=== PATIENT | female | born 1935 | race Caucasian/White ===

== ENCOUNTER 2016-09-08 02:36 | Emergency (ER) | payer MEDICARE, BC ==
[2016-09-08] MEDS ORDERED: LORazepam 1 MG TAB PO STA (03:56)
[2016-09-08 03:58] LABS: Basophils % (A) 1 %; CH 29.2; CHCM 31.7; Eosinophils # (A) 0.1 k/uL (0-0.7); Eosinophils % (A) 2 %; HCT 35.8 % (34.0-46.0); HDW 2.51; HGB 11.3 gm/dL (11.4-16.0); Luc # (Auto) 0.15; Luc % (Auto) 3; Lymphocytes # (A) 0.8 k/uL (1.0-4.8); Lymphocytes % (A) 13 %; MCH 29.1 pg (25.0-35.0); MCHC 31.5 g/dL (31.0-37.0); MCV 92.5 fL (80.0-100.0); Mean Platelet Volume 7.2; Monocytes # (A) 0.4 k/uL (0-1.0); Monocytes % (A) 7 %; Neutrophils # (A) 4.6 k/uL (1.3-7.7); Neutrophils % (A) 75 %; RBC 3.87 m/uL (3.80-5.40); RDW 14.5 % (11.5-15.5); WBC 6.2 k/uL (3.8-10.6); WBC (Perox) 6.43
[2016-09-08 04:08] LABS: Anion Gap 7 mmol/L; Blood Urea Nitrogen 22 mg/dL (7-17); Calcium 8.9 mg/dL (8.4-10.2); Carbon Dioxide 25 mmol/L (22-30); Chloride 106 mmol/L (98-107); Glucose 117 mg/dL (74-99); Non-African American GFR(MDRD) >60 (>60 ml/min/1.73 sqM); Potassium 4.6 mmol/L (3.5-5.1); Sodium 138 mmol/L (137-145)
--- NOTE | 2016-09-08 04:08 | XR ---
EXAM: XR Chest, 2 Views. CLINICAL HISTORY: Reason: Rule out pneumonia TECHNIQUE: Frontal and lateral views of the chest. COMPARISON: 04/26/16 plain films. FINDINGS: Lungs: Linear atelectasis or scarring is again present in the left lower lung field alongside the large hiatal hernia. Pleural spaces: Unremarkable. No pneumothorax. Heart: Stable mild cardiomegaly. Mediastinum: There is again a large hiatal hernia. Bones: The bones are osteopenic with multilevel degenerative changes. No acute displaced fracture is seen. IMPRESSION: No new acute intrathoracic abnormality seen.
--- NOTE | 2016-09-08 04:15 | ED ---
URI HPI - General Chief Complaint: Upper Respiratory Infection Stated Complaint: Cough/Congestion/Fever Time Seen by Provider: 09/08/16 02:54 Source: patient Mode of arrival: wheelchair Limitations: no limitations - History of Present Illness Initial Comments: Complaining about shortness of breath, cough is dry cough now bringing up any phlegm she denies any chest pain there is no pleuritic chest pain no abdominal pain. She denies any headache no neck pain no fever no chills no frequency urgency dysuria no abdominal pain no sinus symptoms of TIA or CVA - Related Data Home Medications Medication Instructions Recorded Confirmed ALPRAZolam [ALPRAZolam] 0.25 mg PO Q8HR PRN 01/14/14 09/08/16 Ascorbic Acid [Vitamin C] 500 mg PO DAILY 01/14/14 09/08/16 FLUoxetine HCL [Fluoxetine HCl] 20 mg PO HS 01/14/14 09/08/16 Levothyroxine Sodium [Synthroid] 100 mcg PO DAILY 01/14/14 09/08/16 amLODIPine BESYLATE/BENAZEPRIL 1 cap PO BID 01/14/14 09/08/16 [Amlodipine-Benazepril 5-20 mg] Aspirin 162 mg PO HS 10/06/14 09/08/16 Atorvastatin [Lipitor] 20 mg PO DAILY 03/30/16 09/08/16 Calcium Carbonate [Calcium] 600 mg PO DAILY 03/30/16 09/08/16 Previous Rx's Medication Instructions Recorded Oseltamivir [Tamiflu] 75 mg PO Q12HR #10 cap 09/08/16 Allergies Allergy/AdvReac Type Severity Reaction Status Date / Time No Known Allergies Allergy Verified 09/08/16 02:52 Review of Systems ROS Statement: Those systems with pertinent positive or pertinent negative responses have been documented in the HPI. ROS Other: All systems not noted in ROS Statement are negative. Past Medical History Past Medical History: Hyperlipidemia, Hypertension, Thyroid Disorder History of Any Multi-Drug Resistant Organisms: None Reported Past Surgical History: Cholecystectomy, Hernia Repair, Tubal Ligation Additional Past Surgical History / Comment(s): THYROIDECTOMY Past Psychological History: Anxiety Smoking Status: Never smoker Past Alcohol Use History: None Reported Past Drug Use History: None Reported General Exam - General Exam Comments Initial Comments: General: The patient is awake and alert, in no distress, and does not appear acutely ill. Skin: Skin is warm and dry and no rashes or lesions are noted. Eye: Pupils are equal, round and reactive to light, extra-ocular movements are intact; there is normal conjunctiva bilaterally. Ears, nose, mouth and throat: There are moist mucous membranes and no oral lesions. Neck: The neck is supple, there is no tenderness or JVD. Cardiovascular: There is a regular rate and rhythm. No murmur, rub or gallop is appreciated. Respiratory: To auscultation bilateral, mild wheezing noticed both sides Gastrointestinal: Soft, non-distended, non-tender abdomen without masses or organomegaly noted. There is no rebound or guarding present. Bowel sounds are unremarkable. Back: There is no tenderness to palpation in the midline. There is no obvious deformity. Musculoskeletal: Normal ROM, no tenderness, There is no pedal edema. There is no calf tenderness or swelling. No cords were appreciated. Neurological: CN II-XII intact, Cranial nerves III through XII are intact. There are no obvious motor or sensory deficits. Coordination appears grossly intact. Speech is normal. Psychiatric: Cooperative, appropriate mood & affect, normal judgment. Limitations: no limitations Course Vital Signs 09/08/16 09/08/16 09/08/16 02:49 03:56 05:09 Temperature 99.4 F Pulse Rate 98 84 78 Respiratory 18 16 16 Rate Blood Pressure 149/63 196/85 163/82 O2 Sat by Pulse 94 L 95 96 Oximetry 09/08/16 09/08/16 05:35 05:44 Temperature Pulse Rate 80 83 Respiratory Rate Blood Pressure O2 Sat by Pulse Oximetry KG is normal sinus rhythm, ventricular rate is 80 OH interval is 150 QRS duration is 66 QT/QTc is 358/412 review of this EKG shows some flattening of the T-wave in lead [address] elevation or ST depression noticed in the other leads - Reevaluation(s) Reevaluation #1: 09/08/16 05:49 She was reassessed at 540 this morning she feels better I reviewed her labs and discussed with the patient and her chest x-ray is normal CBC is normal troponin is normal compressive metabolic panel was normal she is positive or flulike she was giving now Tamiflu him a first dose here since she be gone home and the course of Tamiflu, dysuria blood pressure was elevated which she responded well to hydralazine she'll follow-up with her family doctor she feels better and wants to go home Medical Decision Making - Lab Data Result diagrams: 09/08/16 03:40 09/08/16 03:40 Lab Results 09/08/16 09/08/16 09/08/16 Range/Units 03:40 03:40 03:40 WBC 6.2 (3.8-10.6) k/uL RBC 3.87 (3.80-5.40) m/uL Hgb 11.3 L (11.4-16.0) gm/dL Hct 35.8 (34.0-46.0) % MCV 92.5 (80.0-100.0) fL MCH 29.1 (25.0-35.0) pg MCHC 31.5 (31.0-37.0) g/dL RDW 14.5 (11.5-15.5) % Plt Count 191 (150-450) k/uL Neutrophils % 75 % Lymphocytes % 13 % Monocytes % 7 % Eosinophils % 2 % Basophils % 1 % Neutrophils # 4.6 (1.3-7.7) k/uL Lymphocytes # 0.8 L (1.0-4.8) k/uL Monocytes # 0.4 (0-1.0) k/uL Eosinophils # 0.1 (0-0.7) k/uL Basophils # 0.0 (0-0.2) k/uL Sodium 138 (137-145) mmol/L Potassium 4.6 (3.5-5.1) mmol/L Chloride 106 (98-107) mmol/L Carbon Dioxide 25 (22-30) mmol/L Anion Gap 7 mmol/L BUN 22 H (7-17) mg/dL Creatinine 0.80 (0.52-1.04) mg/dL Est GFR (MDRD) Af Amer >60 (>60 ml/min/1.73 sqM) Est GFR (MDRD) Non-Af >60 (>60 ml/min/1.73 sqM) Glucose 117 H (74-99) mg/dL Calcium 8.9 (8.4-10.2) mg/dL Troponin I (0.000-0.034) ng/mL Influenza Type A RNA Not Detected (Not Detectd) Influenza Type B (PCR) Detected H (Not Detectd) 02/28/17 Range/Units 03:40 WBC (3.8-10.6) k/uL RBC (3.80-5.40) m/uL Hgb (11.4-16.0) gm/dL Hct (34.0-46.0) % MCV (80.0-100.0) fL MCH (25.0-35.0) pg MCHC (31.0-37.0) g/dL RDW (11.5-15.5) % Plt Count (150-450) k/uL Neutrophils % % Lymphocytes % % Monocytes % % Eosinophils % % Basophils % % Neutrophils # (1.3-7.7) k/uL Lymphocytes # (1.0-4.8) k/uL Monocytes # (0-1.0) k/uL Eosinophils # (0-0.7) k/uL Basophils # (0-0.2) k/uL Sodium (137-145) mmol/L Potassium (3.5-5.1) mmol/L Chloride (98-107) mmol/L Carbon Dioxide (22-30) mmol/L Anion Gap mmol/L BUN (7-17) mg/dL Creatinine (0.52-1.04) mg/dL Est GFR (MDRD) Af Amer (>60 ml/min/1.73 sqM) Est GFR (MDRD) Non-Af (>60 ml/min/1.73 sqM) Glucose (74-99) mg/dL Calcium (8.4-10.2) mg/dL Troponin I <0.012 (0.000-0.034) ng/mL Influenza Type A RNA (Not Detectd) Influenza Type B (PCR) (Not Detectd) Disposition Clinical Impression: Hypertension, Influenza A, Shortness of breath Disposition: HOME SELF-CARE Instructions: Upper Respiratory Infection (ED) Prescriptions: Oseltamivir [Tamiflu] 75 mg PO Q12HR #10 cap
[2016-09-08] MEDS ORDERED: hydrALAZINE HCL 20 MG/ML 1 ML VIAL IVP STA (04:16)
[2016-09-08] MEDS ORDERED: OSELTAMIVIR 75 MG CAP PO STA (04:29)
[2016-09-08] MEDS ORDERED: IPRATROPIUM-ALBUTEROL 3 ML NEB INHALATION STA (05:25)
[2016-09-08 06:08] VITALS: BP 158/88; PULSE 78; RESP 18; TEMP 98.9
== END 2016-09-08 06:07 | disposition home or self-care (01) ==
LOC: EC 02:36
DX: J10.1 Influenza due to other identified influenza virus with other respiratory manifestations (principal); I10 Essential (primary) hypertension; E07.9 Disorder of thyroid, unspecified; E78.5 Hyperlipidemia, unspecified; F41.9 Anxiety disorder, unspecified; Z79.52 Long term (current) use of systemic steroids; Z79.82 Long term (current) use of aspirin; Z79.899 Other long term (current) drug therapy; Z90.49 Acquired absence of other specified parts of digestive tract
CPT/HCPCS: 99284; 96374; 36415; 94640; 93005; 80048; 84484; 85025; 87502; 71020; J0360

== ENCOUNTER 2016-09-13 09:45 | Inpatient (IN) | payer MEDICARE, BC ==
[2016-09-13] MEDS ORDERED: SODIUM CHLORIDE 0.9% 1,000 ML IV STA ×2 (10:14)
[2016-09-13] MEDS ORDERED: ACETAMINOPHEN IV (For NPO) 1,000 MG in EMPTY BAG 1 BAG IVPB STA (10:14)
[2016-09-13] MEDS ORDERED: KETOROLAC 30 MG/ML 1 ML VIAL IVP STA (10:14)
[2016-09-13] MEDS ORDERED: IPRATROPIUM 0.5 MG/2.5 ML NEBU INHALATION STA (10:14)
[2016-09-13] MEDS ORDERED: ALBUTEROL NEBULIZED 2.5 MG/3 ML INHALATION STA (10:14)
--- NOTE | 2016-09-13 10:14 | ED ---
General Adult HPI - General Chief complaint: Shortness of Breath Stated complaint: JARAD Time Seen by Provider: 09/13/16 09:48 Source: EMS, RN notes reviewed, old records reviewed Mode of arrival: EMS Limitations: no limitations - History of Present Illness Initial comments: This is an 78-year-old female ER for evaluation. The patient did come in the ER for evaluation of shortness of breath weakness fever and mild chest pain. Patient does suffer from high blood pressure, cluster, denies chest pain, does admit to recent fever. She does have recent hospital admission about 4 months ago. No travel history no sick contacts. Patient has no modifying factors for symptoms at home. - Related Data Home Medications Medication Instructions Recorded Confirmed ALPRAZolam [ALPRAZolam] 0.25 mg PO Q8HR PRN 01/14/14 09/08/16 Ascorbic Acid [Vitamin C] 500 mg PO DAILY 01/14/14 09/08/16 FLUoxetine HCL [Fluoxetine HCl] 20 mg PO HS 01/14/14 09/08/16 Levothyroxine Sodium [Synthroid] 100 mcg PO DAILY 01/14/14 09/08/16 amLODIPine BESYLATE/BENAZEPRIL 1 cap PO BID 01/14/14 09/08/16 [Amlodipine-Benazepril 5-20 mg] Aspirin 162 mg PO HS 10/06/14 09/08/16 Atorvastatin [Lipitor] 20 mg PO DAILY 03/30/16 09/08/16 Calcium Carbonate [Calcium] 600 mg PO DAILY 03/30/16 09/08/16 Previous Rx's Medication Instructions Recorded Oseltamivir [Tamiflu] 75 mg PO Q12HR #10 cap 09/08/16 Allergies Allergy/AdvReac Type Severity Reaction Status Date / Time No Known Allergies Allergy Verified 09/08/16 02:52 Review of Systems ROS Statement: Those systems with pertinent positive or pertinent negative responses have been documented in the HPI. ROS Other: All systems not noted in ROS Statement are negative. Past Medical History Past Medical History: Hyperlipidemia, Hypertension, Thyroid Disorder History of Any Multi-Drug Resistant Organisms: None Reported Past Surgical History: Cholecystectomy, Hernia Repair, Tubal Ligation Additional Past Surgical History / Comment(s): THYROIDECTOMY Past Psychological History: Anxiety Smoking Status: Never smoker Past Alcohol Use History: None Reported Past Drug Use History: None Reported General Exam Limitations: no limitations General appearance: alert, in no apparent distress Head exam: Present: atraumatic, normocephalic, normal inspection Eye exam: Present: normal appearance, PERRL, EOMI. Absent: scleral icterus, conjunctival injection, periorbital swelling ENT exam: Present: normal exam, mucous membranes moist Neck exam: Present: normal inspection. Absent: tenderness, meningismus, lymphadenopathy Respiratory exam: Present: normal lung sounds bilaterally. Absent: respiratory distress, wheezes, rales, rhonchi, stridor Cardiovascular Exam: Present: regular rate, normal rhythm, normal heart sounds. Absent: systolic murmur, diastolic murmur, rubs, gallop, clicks GI/Abdominal exam: Present: soft, normal bowel sounds. Absent: distended, tenderness, guarding, rebound, rigid Extremities exam: Present: normal inspection, full ROM, normal capillary refill. Absent: tenderness, pedal edema, joint swelling, calf tenderness Back exam: Present: normal inspection Neurological exam: Present: alert, oriented X3, CN II-XII intact Psychiatric exam: Present: normal affect, normal mood Skin exam: Present: warm, dry, intact, normal color. Absent: rash Course Vital Signs 09/13/16 09/13/16 09/13/16 09:51 10:14 10:36 Temperature 100.7 F H Pulse Rate 81 96 Respiratory 16 16 Rate Blood Pressure 171/106 09/13/16 10:43 Temperature Pulse Rate 100 Respiratory Rate Blood Pressure - Reevaluation(s) Reevaluation #1: 09/13/16 10:59 Medical record including prior ER visit a few days ago was reviewed and patient is positive for flu Reevaluation #2: 09/13/16 11:00 Patient still wheezy wheezing even after second breathing treatment, EKG Findings - EKG Comments: EKG Findings:: EKG shows normal sinus rhythm rate of 81, DC 140, QRS 66, QTC 439 Medical Decision Making - Medical Decision Making 82. The ER with informed influenza, fever, COPD exacerbation with hypoxia, patient has mild improvement with breathing treatment but still having shortness of breath and cough. Patient's fevers improved and is feeling better but still having shortness of breath. Patient denies chest pain. - Lab Data Result diagrams: 09/13/16 10:11 09/13/16 10:11 Lab Results 09/13/16 09/13/16 09/13/16 Range/Units 10:11 10:11 10:11 WBC 6.5 (3.8-10.6) k/uL RBC 4.11 (3.80-5.40) m/uL Hgb 11.9 (11.4-16.0) gm/dL Hct 37.3 (34.0-46.0) % MCV 90.9 (80.0-100.0) fL MCH 29.0 (25.0-35.0) pg MCHC 32.0 (31.0-37.0) g/dL RDW 14.4 (11.5-15.5) % Plt Count 173 (150-450) k/uL Neutrophils % 62 % Lymphocytes % 28 % Monocytes % 5 % Eosinophils % 1 % Basophils % 1 % Neutrophils # 4.0 (1.3-7.7) k/uL Lymphocytes # 1.8 (1.0-4.8) k/uL Monocytes # 0.3 (0-1.0) k/uL Eosinophils # 0.1 (0-0.7) k/uL Basophils # 0.0 (0-0.2) k/uL PT 10.0 (9.0-12.0) sec INR 1.0 (<1.1) APTT 25.1 (22.0-30.0) sec Sodium 140 (137-145) mmol/L Potassium 3.6 (3.5-5.1) mmol/L Chloride 103 (98-107) mmol/L Carbon Dioxide 28 (22-30) mmol/L Anion Gap 9 mmol/L BUN 17 (7-17) mg/dL Creatinine 0.78 (0.52-1.04) mg/dL Est GFR (MDRD) Af Amer >60 (>60 ml/min/1.73 sqM) Est GFR (MDRD) Non-Af >60 (>60 ml/min/1.73 sqM) Glucose 111 H (74-99) mg/dL Calcium 8.4 (8.4-10.2) mg/dL Total Bilirubin 0.7 (0.2-1.3) mg/dL AST 24 (14-36) U/L ALT 35 (9-52) U/L Alkaline Phosphatase 100 (38-126) U/L Total Protein 6.4 (6.3-8.2) g/dL Albumin 3.7 (3.5-5.0) g/dL - Radiology Data Radiology results: report reviewed (Chest x-ray is negative for acute disease), image reviewed Disposition Clinical Impression: Influenza A, Shortness of breath, Acute exacerbation of chronic obstructive airways disease Disposition: ADMITTED IP TO THIS HOSP Condition: Fair Referrals: Srinivas Reid MD [Primary Care Provider] - 1-2 days
[2016-09-13] MEDS ORDERED: AZITHROMYCIN 500 MG in SODIUM CHLORIDE 0.9% 250 ML IVPB STA (10:15)
[2016-09-13 10:23] LABS: Basophils % (A) 1 %; CH 29.1; CHCM 32.2; Eosinophils # (A) 0.1 k/uL (0-0.7); Eosinophils % (A) 1 %; HCT 37.3 % (34.0-46.0); HDW 2.82; HGB 11.9 gm/dL (11.4-16.0); Luc # (Auto) 0.26; Luc % (Auto) 4; Lymphocytes # (A) 1.8 k/uL (1.0-4.8); Lymphocytes % (A) 28 %; MCV 90.9 fL (80.0-100.0); Mean Platelet Volume 7.2; Monocytes # (A) 0.3 k/uL (0-1.0); Monocytes % (A) 5 %; Neutrophils % (A) 62 %; RBC 4.11 m/uL (3.80-5.40); RDW 14.4 % (11.5-15.5); WBC 6.5 k/uL (3.8-10.6); WBC (Perox) 6.73
--- NOTE | 2016-09-13 10:31 | XR ---
EXAMINATION TYPE: XR chest 2V DATE OF EXAM: 09/13/2016 10:24 AM COMPARISON: NONE INDICATION: Difficulty breathing TECHNIQUE: Single frontal view of the chest is obtained. FINDINGS: The heart size is normal. The pulmonary vasculature is normal. The lungs are clear. There is a hiatal hernia with an air-fluid level present. IMPRESSION: 1. No acute pulmonary process.
[2016-09-13 10:33] LABS: ALT 35 U/L (9-52); AST 24 U/L (14-36); Alkaline Phosphatase 100 U/L (38-126); Anion Gap 9 mmol/L; Blood Urea Nitrogen 17 mg/dL (7-17); Calcium 8.4 mg/dL (8.4-10.2); Carbon Dioxide 28 mmol/L (22-30); Chloride 103 mmol/L (98-107); Glucose 111 mg/dL (74-99); Non-African American GFR(MDRD) >60 (>60 ml/min/1.73 sqM); Potassium 3.6 mmol/L (3.5-5.1); Sodium 140 mmol/L (137-145); Total Bilirubin 0.7 mg/dL (0.2-1.3); Total Protein 6.4 g/dL (6.3-8.2)
[2016-09-13 10:36] LABS: Partial Thromboplastin Time 25.1 sec (22.0-30.0)
[2016-09-13 10:54] LABS: Creatine Kinase 73 U/L (30-135)
[2016-09-13] MEDS ORDERED: methylPREDNISolone SOD SUCCI 125 MG/2 ML VIAL IV STA (10:58)
[2016-09-13] MEDS ORDERED: OSELTAMIVIR 75 MG CAP PO STA (10:58)
[2016-09-13 11:07] LABS: Creatine Kinase MB 1.3 ng/mL (0.0-2.4); Troponin I <0.012 ng/mL (0.000-0.034)
[2016-09-13 12:15] VITALS: BMI 35.1
[2016-09-13] MEDS ORDERED: Acetaminophen-Codeine 300-30mg TAB PO PRN (12:33)
[2016-09-13] MEDS: SODIUM CHLORIDE 0.9% 1,000 ML IV SCH ×2 (13:23→23:35)
[2016-09-13] MEDS: BENZONATATE 100 MG CAP PO SCH ×2 (13:23→21:27)
--- NOTE | 2016-09-13 13:23 | P.HPIM ---
History of Present Illness H&P Date: 09/13/16 Chief Complaint: Dyspnea and shortness of breath, wheezes, cough, debility, influenza, COPD 80-year-old female one of Dr. Arroyo patient with past medical history of hypertension hyperlipidemia and hypothyroidism was known to have mild depression has been living with family member for the last 2 years since her . Patient apparently was in the emergency department on Wednesday last week for worsening upper respiratory infection her influenza came back positive was sent home on Tamiflu for 5 days. 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 Patient was started on steroids along with DuoNeb and was diagnosed with atypical pneumonitis as well started on Zithromax and continue her Tamiflu will admit patient to the hospital, patient will be seen pulmonary as well. Review of Systems Constitutional: Reports anorexia, Reports fatigue, Reports lethargy, Reports malaise, Reports weakness, Reports weight loss, Denies as per HPI, Denies chills , Denies chronic headaches, Denies chronic pain, Denies daytime sleepiness, Denies fever, Denies night sweats, Denies poor appetite, Denies sweats, Denies weight gain Eyes: bilateral as per HPI Ears: bilateral: decreased hearing, ear discharge Ears, nose, mouth and throat: Reports ant. neck pain, Reports dysphagia, Reports nasal congestion, Reports sinus pain, Reports sinus pressure, Denies as per HPI, Denies bleeding gums, Denies dental pain, Denies epistaxis, Denies headache, Denies hoarseness, Denies mouth pain, Denies nasal discharge, Denies neck fullness/pressure, Denies neck lump, Denies nose pain, Denies odynophagia, Denies post-nasal drip, Denies swelling in mouth, Denies swelling in throat, Denies sore throat, Denies vertigo, Denies voice changes Cardiovascular: Reports chest pain, Reports decreased exercise tolerance, Reports dyspnea on exertion, Reports edema, Reports high blood pressure, Reports irregular heart beat, Reports leg edema, Reports lightheadedness, Reports orthopnea, Reports palpitations, Reports paroxysmal nocturnal dyspnea, Reports rapid heart beat, Reports shortness of breath, Denies as per HPI, Denies claudication, Denies phlebitis, Denies syncope Respiratory: Reports congestion, Reports cough, Reports dyspnea, Reports pain on inspiration, Reports respiratory infections, Reports wheezing, Denies as per HPI, Denies cough with sputum, Denies excessive sputum, Denies hemoptysis, Denies home oxygen, Denies pain, Denies pleurisy, Denies sleep apnea, Denies snoring Gastrointestinal: Reports abdominal pain, Reports dyspepsia, Reports excessive gas, Reports indigestion, Reports loss of appetite, Reports nausea, Denies as per HPI, Denies belching, Denies bloating, Denies BRBPR, Denies change in bowel habits, Denies coffee ground emesis, Denies constipation, Denies diarrhea, Denies early satiety, Denies heartburn, Denies hematemesis, Denies hematochezia , Denies jaundice, Denies lactose intolerance, Denies melena, Denies vomiting Genitourinary: Reports stress incontinence, Reports urgency, Denies as per HPI, Denies abnormal vaginal bleeding, Denies decreased libido, Denies difficulty conceiving, Denies difficulty voiding, Denies dysmenorrhea, Denies dyspareunia, Denies dysuria, Denies flank pain, Denies genital sores, Denies hematuria, Denies hot flashes, Denies incomplete emptying, Denies kidney stones, Denies menorrhagia, Denies mixed incontinence, Denies nocturia, Denies pelvic pain, Denies post void dribbling, Denies , Denies prolapse symptoms, Denies urge incontinence, Denies urinary frequency, Denies vaginal discharge, Denies vaginal dryness, Denies vaginal itching, Denies vaginal odor Musculoskeletal: Reports low back pain, Reports myalgias, Reports neck pain, Reports neck stiffness, Denies as per HPI, Denies arm numbness/tingling, Denies atrophy, Denies fractures, Denies frequent falls, Denies gait dysfunction, Denies hot joints, Denies leg numbness/tingling, Denies limitation of motion, Denies loss of height, Denies morning stiffness, Denies muscle cramps, Denies muscle weakness, Denies prior amputations, Denies redness of joints, Denies shooting arm pain, Denies shooting leg pain Musculoskeletal: right: ankle stiffness Integumentary: Reports pruritus, Reports rash, Denies as per HPI, Denies acne, Denies boils, Denies brittle nails, Denies change in hair/nails, Denies color changes, Denies darkening of skin, Denies depigmentation, Denies dryness, Denies foot/leg ulcers, Denies growths, Denies hirsutism, Denies lesions, Denies onychomycosis, Denies sores, Denies striae, Denies unusual bruising, Denies wounds Neurological: Reports ataxia, Reports confusion, Reports paresthesias, Reports tingling, Reports vertigo, Reports weakness, Denies as per HPI, Denies aphasia, Denies balance difficulties, Denies burning pain, Denies change in mentation, Denies change in smell/taste, Denies change in speech, Denies convulsions, Denies double vision, Denies gait dysfunction, Denies head injury, Denies headaches, Denies hearing difficulties, Denies lack of coordination, Denies loss of vision, Denies memory loss, Denies migraines, Denies motor disturbance, Denies numbness, Denies paralysis, Denies seizures, Denies sensory deficit, Denies spasticity, Denies syncope, Denies tic, Denies transient paralysis, Denies tremors, Denies visual changes Psychiatric: Reports anxiety attacks, Reports change in sleep habits, Reports confusion, Reports insomnia, Reports irritability, Denies as per HPI, Denies anhedonia, Denies anxiety, Denies change in appetite, Denies change in libido, Denies depression, Denies difficulty concentrating, Denies disorientation, Denies hallucinations, Denies hopelessness, Denies hypersomnia, Denies memory loss, Denies mood swings, Denies paranoia, Denies sadness/tearfulness, Denies sleep disturbances, Denies suicidal ideation Endocrine: Reports cold intolerance, Reports nocturia, Reports palpitations, Denies as per HPI, Denies deepening of the voice, Denies excessive sweating, Denies excessive thirst, Denies fatigue, Denies flushing, Denies heat intolerance, Denies high blood sugars, Denies increase in ring/shoe/hat size, Denies low blood sugars, Denies polydipsia, Denies polyphagia, Denies polyuria, Denies proptosis, Denies recent glucocorticoid use, Denies thyroid mass, Denies weight change Hematologic/Lymphatic: Reports easy bleeding, Reports easy bruising, Denies as per HPI, Denies lymphadenopathy, Denies lymphedema, Denies thrombophilia Allergic/Immunologic: Reports allergic rhinitis, Denies as per HPI, Denies anaphylaxis, Denies angioedema, Denies gluten intolerance, Denies persistent infections, Denies seasonal allergies, Denies urticaria, Denies wheezing Past Medical History Past Medical History: COPD, Hyperlipidemia, Hypertension, Thyroid Disorder History of Any Multi-Drug Resistant Organisms: None Reported Past Surgical History: Cholecystectomy, Hernia Repair, Tubal Ligation Additional Past Surgical History / Comment(s): THYROIDECTOMY, varicose vein stripping Past Anesthesia/Blood Transfusion Reactions: No Reported Reaction Past Psychological History: Anxiety Smoking Status: Never smoker Past Alcohol Use History: None Reported Past Drug Use History: None Reported - Past Family History Mother Family Medical History: Diabetes Mellitus Father Family Medical History: Pneumonia Sister(s) Family Medical History: Cancer Medications and Allergies Home Medications Medication Instructions Recorded Confirmed Type ALPRAZolam [ALPRAZolam] 0.25 mg PO BID 01/14/14 09/13/16 History Ascorbic Acid [Vitamin C] 500 mg PO DAILY 01/14/14 09/13/16 History FLUoxetine HCL [Fluoxetine HCl] 20 mg PO QAM 01/14/14 09/13/16 History Levothyroxine Sodium [Synthroid] 100 mcg PO DAILY 01/14/14 09/13/16 History amLODIPine BESYLATE/BENAZEPRIL 1 cap PO BID 01/14/14 09/13/16 History [Amlodipine-Benazepril 5-20 mg] Atorvastatin [Lipitor] 20 mg PO DAILY 03/30/16 09/13/16 History Acetaminophen-Codeine 300-30mg 1 tab PO BID PRN 09/13/16 09/13/16 History [Tylenol #3] Aspirin EC [Ecotrin Low Dose] 162 mg PO DAILY 09/13/16 09/13/16 History Allergies Allergy/AdvReac Type Severity Reaction Status Date / Time No Known Allergies Allergy Verified 09/13/16 11:42 Physical Exam Vitals: Vital Signs Temp Pulse Resp BP Pulse Ox 09/13/16 11:09 98.6 F 72 16 148/91 100 Intake and Output 09/12/16 09/13/16 09/13/16 22:59 06:59 14:59 Other: Voiding Method Toilet Weight 78.925 kg Patient Weight 09/14/16 06:59 Weight 78.925 kg - Constitutional General appearance: no average body habitus, cooperative, no disheveled, mild distress, no morbidly obese, no no acute distress, no obese, no severe distress , no thin - EENT Eyes: no abnormal pupil, no anicteric sclerae, no disc margins sharp, no edentulous, no EOMI, no PERRLA, no fundus normal, no photophobia, no dentition normal, no poor dentition, no ptosis, no scleral icterus, normal appearance ENT: hard of hearing, no hearing grossly normal, no NA/AT, no normal oropharynx , no other, pharyngeal erythema, no thrush, no tonsillar exudates, no tonsillar swelling Ears: bilateral: normal, bulging - Neck Neck: no lymphadenopathy, normal ROM, no other, no rigidity, no stridor, no thyromegaly Carotids: bilateral: upstroke normal, upstroke delayed Thyroid: bilateral: normal size - Respiratory Respiratory: bilateral: diminished, dullness, rales, rhonchi, wheezing - Cardiovascular Rhythm: regular Heart sounds: normal: S1, S2 Abnormal Heart Sounds: systolic murmur, S3 Gallop - Gastrointestinal General gastrointestinal: no absent bowel sounds, decreased bowel sounds, no distended, no hepatomegaly, no hyperactive bowel sounds, normal bowel sounds, no organomegaly, no rigid, no scaphoid, soft, no splenomegaly, tenderness, no umbilical hernia, no ventral hernia - Integumentary Integumentary: no calor, no cellulitis, no cyanotic, no decreased turgor, no flushed, no jaundiced, normal, no normal turgor, pale, rash, no ulcer - Neurologic Neurologic: CNII-XII intact - Musculoskeletal Musculoskeletal: gait normal, generalized weakness, strength equal bilaterally, no right sided weakness, no left sided weakness - Psychiatric Psychiatric: A&O x's 3, appropriate affect Results CBC & Chem 7: 09/13/16 10:11 09/13/16 10:11 Labs: Abnormal Lab Results - Last 24 Hours (Table) 09/13/16 Range/Units 11:35 Influenza Type B (PCR) Detected H (Not Detectd) Thrombosis Risk Factor Assmnt - DVT/VTE Prophylaxis DVT/VTE Prophylaxis: Mechanical Prophylaxis ordered - Choose All That Apply Each Factor Represents 1 point: Abnormal pulmonary function (COPD), Obesity ( BMI >25) Each Risk Factor Represents 3 Points: Age 75 years or older Thrombosis Risk Factor Assessment Total Risk Factor Score: 5 Thrombosis Risk Factor Assessment Level: High Risk Assessment and Plan Plan: 1 acute respiratory failure: Combination of severe bronchitis, influenza, early pneumonitis, COPD and mild diastolic heart failure. 2 COPD excessive patient: With current condition patient be started on Solu- Medrol IV every 8 hours, consult pulmonary, was start DuoNeb and Pulmicort continue O2 try to keep pulse ox above 92%. 3 acute pneumonitis: Most likely atypical specially starting after influenza patient will be on Zithromax and may be Rocephin at this point repeat chest x- ray in 48 hours. 4 influenza: Continue Tamiflu until Wednesday. 5 hypertension: Continue patient on Benzapril amlodipine continue to watch for any hypotension specially with her current condition. 6 hyperlipidemia: Patient is on Lipitor 20 mg a day resume medication. 7 hypothyroidism: Continue patient on levothyroxine in the micrograms daily. 8 chronic depression: Patient is on the fluoxetine 20 mg a day and alprazolam 0.25 g every 8 hours as needed. 9 GERD/GI prophylaxis: Patient be on Pepcid 20 mg daily. 10 DVT prophylaxis: Was start patient on heparin 5000 units subcutaneous twice a day along with knee-high GINNY hose. CODE STATUS: Full code. Expectation from this admission: Patient be in the hospital for more than 2 nights.
[2016-09-13] MEDS: IPRATROPIUM-ALBUTEROL 3 ML NEB INHALATION SCH ×2 (15:17→19:45)
[2016-09-13] MEDS: methylPREDNISolone SOD SUCCI 125 MG/2 ML VIAL IV SCH ×2 (18:11→23:31)
[2016-09-13] MEDS: BUDESONIDE 0.5 MG/2 ML NEBU INHALATION SCH (19:45)
--- NOTE | 2016-09-13 20:30 | CONS ---
DATE OF CONSULTATION: Anita Moya is an 80-year-old female who presented to the ED at [facility] with increasing shortness of breath. She had been doing fair up until 2 to 3 days ago when she came into the ER. She was thought to have the flu and apparently was started on Tamiflu. Apparently other members of her house were had been sick with influenza. She subsequently was seen in the ED. She was quite short of breath for the last 2 days and was wheezing. She previously had not been diagnosed to her knowledge with chronic obstructive pulmonary disease or asthma. Past medical history is positive for hyperlipidemia, hypertension, thyroidectomy, and varicose vein stripping, anxiety. FAMILY HISTORY: Positive for diabetes mellitus in her mother. Father had a history of pneumonia. SOCIAL HISTORY: Patient is a never smoker. Does not drink alcohol excessively. She used to work for [employer] and was never short of breath at work. Her medications prior to admission were: 1. Amlodipine with Benazepril. 2. Tamiflu. 3. Synthroid. 4. Fluoxetine. 5. Lipitor. 6. Ecotrin. 7. Vitamin C. 8. Acetaminophen with codeine. 9. Alprazolam. REVIEW OF SYSTEMS: Noncontributory. On physical examination, blood pressure 144/71, respiratory rate 18, pulse 78, temperature 98.6, O2 sat on 2 liters by nasal cannula is 100%, T-max 100.7. HEENT reveals pupils are equal. Chest reveals expiratory wheeze bilaterally, occasional crackles. Cardiovascular system reveals an S1 and S2. ABDOMEN: Soft. There is no pedal edema. Chest x-ray shows a small hiatal hernia, but no acute infiltrate. IMPRESSION: 1. Influenza with bronchospasm which may be due to acute viral etiology. 2. Possible asthma. 3. Doubt chronic obstructive pulmonary disease. 4. Hyperlipidemia. 5. Previous history of thyroid disease. At this point in time, from a pulmonary standpoint, would keep her on bronchodilators, aerosolized steroids, Tamiflu, add Montelukast to her regimen to decrease her need for steroids. Continue IV steroids. Continue supplemental oxygen. Depending on how she does, we shall make further changes to her care. She was counseled regarding her condition and this approach and has a fair understanding of our recommendations.
[2016-09-13] MEDS: MONTELUKAST 10 MG TAB PO SCH (21:27)
[2016-09-13] MEDS: ALPRAZolam 0.25 MG TAB PO SCH (21:27)
[2016-09-13] MEDS: amLODIPine 5 MG TAB PO SCH (21:28)
[2016-09-13] MEDS: OSELTAMIVIR 75 MG CAP PO SCH (21:58)
[2016-09-14] MEDS: LEVOTHYROXINE 100 MCG TAB PO SCH (05:04)
[2016-09-14] MEDS: methylPREDNISolone SOD SUCCI 125 MG/2 ML VIAL IV SCH ×2 (05:04→13:04)
[2016-09-14] MEDS: BUDESONIDE 0.5 MG/2 ML NEBU INHALATION SCH ×2 (07:33→20:39)
[2016-09-14] MEDS: IPRATROPIUM-ALBUTEROL 3 ML NEB INHALATION SCH ×4 (07:33→20:39)
[2016-09-14 08:02] LABS: Basophils # (A) 0.1 k/uL (0-0.2); Basophils % (A) 1 %; CH 29.1; CHCM 31.8; Eosinophils % (A) 0 %; HCT 34.4 % (34.0-46.0); HDW 2.81; Hypochromasia Slight; Luc # (Auto) 0.21; Luc % (Auto) 4; Lymphocytes # (A) 0.9 k/uL (1.0-4.8); Lymphocytes % (A) 17 %; MCH 29.5 pg (25.0-35.0); MCHC 32.1 g/dL (31.0-37.0); MCV 91.9 fL (80.0-100.0); Monocytes # (A) 0.2 k/uL (0-1.0); Monocytes % (A) 4 %; Neutrophils # (A) 3.8 k/uL (1.3-7.7); Neutrophils % (A) 75 %; RBC 3.74 m/uL (3.80-5.40); RDW 14.6 % (11.5-15.5); WBC 5.1 k/uL (3.8-10.6); WBC (Perox) 5.54
[2016-09-14 08:38] LABS: ALT 29 U/L (9-52); AST 24 U/L (14-36); Alkaline Phosphatase 71 U/L (38-126); Anion Gap 8 mmol/L; Blood Urea Nitrogen 10 mg/dL (7-17); Carbon Dioxide 25 mmol/L (22-30); Chloride 105 mmol/L (98-107); Glucose 164 mg/dL (74-99); Non-African American GFR(MDRD) >60 (>60 ml/min/1.73 sqM); Potassium 3.8 mmol/L (3.5-5.1); Sodium 138 mmol/L (137-145); Total Bilirubin 0.9 mg/dL (0.2-1.3); Total Protein 6.3 g/dL (6.3-8.2)
[2016-09-14] MEDS: SODIUM CHLORIDE 0.9% 1,000 ML IV SCH ×2 (08:54→18:55)
[2016-09-14] MEDS: ALPRAZolam 0.25 MG TAB PO SCH ×2 (09:00→21:10)
[2016-09-14] MEDS: ASPIRIN 81 MG CHEW PO SCH (09:01)
[2016-09-14] MEDS: amLODIPine 5 MG TAB PO SCH ×2 (09:01→21:11)
[2016-09-14] MEDS: ATORVASTATIN 20 MG TAB PO SCH (09:01)
[2016-09-14] MEDS: ASCORBIC ACID 500 MG TAB PO SCH (09:01)
[2016-09-14] MEDS: FLUoxetine HCL 20 MG CAP PO SCH (09:02)
[2016-09-14] MEDS: ENOXAPARIN 40 MG/0.4 ML SYRINGE SQ SCH (09:02)
[2016-09-14] MEDS: FAMOTIDINE 20 MG TAB PO SCH (09:02)
[2016-09-14] MEDS: BENZONATATE 100 MG CAP PO SCH ×3 (09:02→21:10)
[2016-09-14] MEDS: OSELTAMIVIR 75 MG CAP PO SCH ×2 (09:03→21:10)
[2016-09-14] MEDS: LISINOPRIL 20 MG TAB PO SCH (09:03)
--- NOTE | 2016-09-14 14:11 | P.PN ---
Subjective 80-year-old female one of Dr. Srinivas Reid patient with past medical history of hypertension hyperlipidemia and hypothyroidism was known to have mild depression has been living with family member for the last 2 years since her . Patient apparently was in the emergency department on Wednesday last week for worsening upper respiratory infection her influenza came back positive was sent home on Tamiflu for 5 days. 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 Patient was started on steroids along with DuoNeb and was diagnosed with atypical pneumonitis as well started on Zithromax and continue her Tamiflu will admit patient to the hospital, patient will be seen pulmonary as well. 09/14: Patient has been seen by Dr. CARLIE Uriarte from pulmonary medicine. Solu- Medrol is at 60 mg IV every 6 hours will be decreased to 40 mg every 8. Patient is continued on Tamiflu, nebulizer treatments, Pulmicort, Tessalon Perles and Singulair. Objective - Vital Signs Vital signs: Vital Signs Temp 97.5 F L 09/14/16 07:00 Pulse 92 09/14/16 07:49 Resp 17 09/14/16 07:00 BP 158/81 09/14/16 07:00 Pulse Ox 97 09/14/16 07:00 Intake & Output 09/13/16 09/14/16 09/14/16 18:59 06:59 18:59 Intake Total 1250 Balance 1250 Weight 78.925 kg 78.925 kg Intake: IV 1250 Azithromycin 500 mg In 250 Sodium Chloride 0.9% 250 ml @ 125 mls/hr IVPB ONCE STA Rx#:[id number] Sodium Chloride 0.9% 1, 1000 000 ml @ 999 mls/hr IV . Q1H1M STA Rx#:[id number] Other: Voiding Method Toilet Toilet # Voids 1 1 - Exam General appearance: no average body habitus, cooperative, no disheveled, mild distress, no morbidly obese, no no acute distress, no obese, no severe distress , no thin - EENT Eyes: no abnormal pupil, no anicteric sclerae, no disc margins sharp, no edentulous, no EOMI, no PERRLA, no fundus normal, no photophobia, no dentition normal, no poor dentition, no ptosis, no scleral icterus, normal appearance ENT: hard of hearing, no hearing grossly normal, no NA/AT, no normal oropharynx , no other, pharyngeal erythema, no thrush, no tonsillar exudates, no tonsillar swelling Ears: bilateral: normal, bulging - Neck Neck: no lymphadenopathy, normal ROM, no other, no rigidity, no stridor, no thyromegaly Carotids: bilateral: upstroke normal, upstroke delayed Thyroid: bilateral: normal size - Respiratory Respiratory: bilateral: diminished, dullness, rales, rhonchi, wheezing - Cardiovascular Rhythm: regular Heart sounds: normal: S1, S2 Abnormal Heart Sounds: systolic murmur, S3 Gallop - Gastrointestinal General gastrointestinal: no absent bowel sounds, decreased bowel sounds, no distended, no hepatomegaly, no hyperactive bowel sounds, normal bowel sounds, no organomegaly, no rigid, no scaphoid, soft, no splenomegaly, tenderness, no umbilical hernia, no ventral hernia - Integumentary Integumentary: no calor, no cellulitis, no cyanotic, no decreased turgor, no flushed, no jaundiced, normal, no normal turgor, pale, rash, no ulcer - Neurologic Neurologic: CNII-XII intact - Musculoskeletal Musculoskeletal: gait normal, generalized weakness, strength equal bilaterally, no right sided weakness, no left sided weakness - Psychiatric Psychiatric: A&O x's 3, appropriate affect - Labs CBC & Chem 7: 09/14/16 07:35 09/14/16 07:35 Labs: Abnormal Lab Results - Last 24 Hours (Table) 09/13/16 09/14/16 09/14/16 Range/Units 11:35 07:35 07:35 RBC 3.74 L (3.80-5.40) m/uL Hgb 11.0 L (11.4-16.0) gm/dL Lymphocytes # 0.9 L (1.0-4.8) k/uL Glucose 164 H (74-99) mg/dL Calcium 8.0 L (8.4-10.2) mg/dL Albumin 3.4 L (3.5-5.0) g/dL Influenza Type B (PCR) Detected H (Not Detectd) Assessment and Plan Plan: 1 acute respiratory distress due to combination of severe bronchitis, influenza , early pneumonitis, COPD exacerbation. Continue DuoNeb treatments, Tamiflu, Solu-Medrol, Singulair, Pulmicort. Consult with Dr. CARLIE Uriarte appreciated. 2 COPD exacerbation. Continue his #1 3 acute pneumonitis: Most likely atypical, continue Zithromax. Repeat chest x- ray tomorrow 4 influenza: Continue Tamiflu until Wednesday. 5 hypertension: Continue patient on Benzapril amlodipine continue to watch for any hypotension specially with her current condition. 6 hyperlipidemia: Patient is on Lipitor 20 mg a day resume medication. 7 hypothyroidism: Continue patient on levothyroxine in the micrograms daily. 8 chronic depression, recurrent: Patient is on the fluoxetine 20 mg a day and alprazolam 0.25 g every 8 hours as needed. 9 GERD/GI prophylaxis: Patient be on Pepcid 20 mg daily. 10 DVT prophylaxis: Was start patient on heparin 5000 units subcutaneous twice a day along with knee-high GINNY hose. CODE STATUS: Full code. Discharge plan: To be determined. PT and OT evals added. Impression and plan of care have been directed as dictated by the signing physician. Nita De La Torre nurse practitioner acting as scribe for signing physician. Time with Patient: Greater than 30
[2016-09-14] MEDS ORDERED: methylPREDNISolone SOD SUCCI 40 MG/ML 1 ML VIAL IV SCH (16:00)
--- NOTE | 2016-09-14 20:48 | PN ---
DATE OF SERVICE: 09/14/2016 Patient is an 80-year-old female who is seen lying in bed. She is awake, alert, feeling less short of breath, hoping to possibly go home tomorrow. Patient is afebrile, hemodynamically stable, in no acute distress. PHYSICAL EXAMINATION: VITAL SIGNS: Temperature 97.5, heart rate 78, respiratory rate 17. Blood pressure is 158/81. Oxygen saturation is 97% on 2 L oxygen via nasal cannula. HEENT: Head is normocephalic, atraumatic. NECK: Supple. Trachea is midline. LUNGS: Essentially clear. No rales or wheezes. HEART: S1 and S2 are heard. Not tachycardic. ABDOMEN: Soft. Bowel sounds are heard. EXTREMITIES: With 1+ edema. LABS: White count 5.1, hemoglobin 11.0, hematocrit 34.4 with 158,000 platelets. Sodium is 138, potassium 3.8, chloride 105. CO2 is 25. Anion gap is 8. BUN is 10, creatinine 0.53. Glucose is 164. Calcium is 8.0. Total bilirubin is 0.9, AST is 24, ALT is 29, alkaline phosphatase is 71. Total protein 6.3. Albumin is 3.4. Influenza type B was detected on PCR. IMAGING: No new imaging to review. Previous chest x-ray was clear; no acute pulmonary process. IMPRESSION: 1. Influenza with bronchospasm which may be due to acute viral etiology. 2. Possible asthma. 3. Hyperlipidemia. 4. Previous history of thyroid disease. PLAN: Continue bronchodilators and aerosolized steroids. Will stop the IV Solu-Medrol, continue montelukast, Tamiflu and remaining medications which were reviewed. Continue oxygen to maintain saturations greater than or equal to 88%. Increase activity as tolerated. Will follow patient closely with you, making further changes as necessary.
[2016-09-14] MEDS: MONTELUKAST 10 MG TAB PO SCH (21:11)
[2016-09-15] MEDS: LEVOTHYROXINE 100 MCG TAB PO SCH (05:20)
[2016-09-15] MEDS: SODIUM CHLORIDE 0.9% 1,000 ML IV SCH ×2 (05:47→07:59)
[2016-09-15] MEDS: BUDESONIDE 0.5 MG/2 ML NEBU INHALATION SCH ×2 (07:44→19:51)
[2016-09-15] MEDS: IPRATROPIUM-ALBUTEROL 3 ML NEB INHALATION SCH ×4 (07:44→19:52)
[2016-09-15] MEDS: ALPRAZolam 0.25 MG TAB PO SCH ×2 (07:59→21:19)
[2016-09-15] MEDS: ASPIRIN 81 MG CHEW PO SCH (08:02)
[2016-09-15] MEDS: amLODIPine 5 MG TAB PO SCH ×2 (08:02→21:19)
[2016-09-15] MEDS: ASCORBIC ACID 500 MG TAB PO SCH (08:02)
[2016-09-15] MEDS: ENOXAPARIN 40 MG/0.4 ML SYRINGE SQ SCH (08:03)
[2016-09-15] MEDS: FAMOTIDINE 20 MG TAB PO SCH (08:03)
[2016-09-15] MEDS: BENZONATATE 100 MG CAP PO SCH ×3 (08:03→21:39)
[2016-09-15] MEDS: OSELTAMIVIR 75 MG CAP PO SCH ×2 (08:03→21:19)
[2016-09-15] MEDS: ATORVASTATIN 20 MG TAB PO SCH (08:03)
[2016-09-15] MEDS: FLUoxetine HCL 20 MG CAP PO SCH (08:03)
[2016-09-15] MEDS: LISINOPRIL 20 MG TAB PO SCH (08:04)
[2016-09-15] MEDS: methylPREDNISolone SOD SUCCI 125 MG/2 ML VIAL IV SCH ×2 (13:19→17:25)
--- NOTE | 2016-09-15 14:58 | P.PN ---
Subjective 80-year-old female one of Dr. Srinivas Reid patient with past medical history of hypertension hyperlipidemia and hypothyroidism was known to have mild depression has been living with family member for the last 2 years since her . Patient apparently was in the emergency department on Wednesday last week for worsening upper respiratory infection her influenza came back positive was sent home on Tamiflu for 5 days. 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 Patient was started on steroids along with DuoNeb and was diagnosed with atypical pneumonitis as well started on Zithromax and continue her Tamiflu will admit patient to the hospital, patient will be seen pulmonary as well. 09/14: Patient has been seen by Dr. CARLIE Uriarte from pulmonary medicine. Solu- Medrol is at 60 mg IV every 6 hours will be decreased to 40 mg every 8. Patient is continued on Tamiflu, nebulizer treatments, Pulmicort, Tessalon Perles and Singulair. 09/15: Patient states her breathing seems to be worse today. Only medicine has changed steroids to 60 mg IV every 6 hours for 4 doses. IV fluids changed to saline lock. Patient is complaining of blurred vision for which a consult was placed with Dr. Wise and patient will see on Wednesday in office. Objective - Vital Signs Vital signs: Vital Signs Temp 98.9 F 09/15/16 08:28 Pulse 94 09/15/16 08:28 Resp 18 09/15/16 08:28 BP 151/74 09/15/16 08:28 Pulse Ox 96 09/15/16 08:28 Intake & Output 09/14/16 09/15/16 09/15/16 18:59 06:59 18:59 Other: Voiding Method Toilet Toilet Toilet # Voids 1 1 - Exam General appearance: no average body habitus, cooperative, no disheveled, mild distress, no morbidly obese, no no acute distress, no obese, no severe distress , no thin - EENT Eyes: no abnormal pupil, no anicteric sclerae, no disc margins sharp, no edentulous, no EOMI, no PERRLA, no fundus normal, no photophobia, no dentition normal, no poor dentition, no ptosis, no scleral icterus, normal appearance ENT: hard of hearing, no hearing grossly normal, no NA/AT, no normal oropharynx , no other, pharyngeal erythema, no thrush, no tonsillar exudates, no tonsillar swelling Ears: bilateral: normal, bulging - Neck Neck: no lymphadenopathy, normal ROM, no other, no rigidity, no stridor, no thyromegaly Carotids: bilateral: upstroke normal, upstroke delayed Thyroid: bilateral: normal size - Respiratory Respiratory: bilateral: diminished, dullness, rales, rhonchi, wheezing - Cardiovascular Rhythm: regular Heart sounds: normal: S1, S2 Abnormal Heart Sounds: systolic murmur, S3 Gallop - Gastrointestinal General gastrointestinal: no absent bowel sounds, decreased bowel sounds, no distended, no hepatomegaly, no hyperactive bowel sounds, normal bowel sounds, no organomegaly, no rigid, no scaphoid, soft, no splenomegaly, tenderness, no umbilical hernia, no ventral hernia - Integumentary Integumentary: no calor, no cellulitis, no cyanotic, no decreased turgor, no flushed, no jaundiced, normal, no normal turgor, pale, rash, no ulcer - Neurologic Neurologic: CNII-XII intact - Musculoskeletal Musculoskeletal: gait normal, generalized weakness, strength equal bilaterally, no right sided weakness, no left sided weakness - Psychiatric Psychiatric: A&O x's 3, appropriate affect - Labs CBC & Chem 7: 09/14/16 07:35 09/14/16 07:35 Assessment and Plan Plan: 1 acute respiratory distress due to combination of severe bronchitis, influenza , early pneumonitis, COPD exacerbation. Continue DuoNeb treatments, Tamiflu, Solu-Medrol, Singulair, Pulmicort. Consult with Dr. CARLIE Uriarte appreciated. 2 COPD exacerbation. Continue his #1 3 acute pneumonitis: Most likely atypical, continue Zithromax. Repeat chest x- ray tomorrow 4 influenza: Continue Tamiflu until Wednesday. 5 hypertension: Continue patient on Benzapril amlodipine continue to watch for any hypotension specially with her current condition. 6 hyperlipidemia: Patient is on Lipitor 20 mg a day resume medication. 7 hypothyroidism: Continue patient on levothyroxine in the micrograms daily. 8 chronic depression, recurrent: Patient is on the fluoxetine 20 mg a day and alprazolam 0.25 g every 8 hours as needed. 9 GERD/GI prophylaxis: Patient be on Pepcid 20 mg daily. 10 DVT prophylaxis: Was start patient on heparin 5000 units subcutaneous twice a day along with knee-high GINNY hose. 11. Vision left eye. Patient to follow-up with Dr. Wise on Wednesday in office. CODE STATUS: Full code. Discharge plan: To be determined. PT and OT evals added. Impression and plan of care have been directed as dictated by the signing physician. Nita De La Torre nurse practitioner acting as scribe for signing physician. Time with Patient: Greater than 30
[2016-09-15] MEDS: MONTELUKAST 10 MG TAB PO SCH (21:19)
[2016-09-15 22:26] VITALS: RESP 16
--- NOTE | 2016-09-15 22:28 | PN ---
Date of service: 09/15/2016 She was seen on 09/15/2016. She has remained hemodynamically stable. She continues to have shortness of breath and is actually worse compared to yesterday. On physical examination, her blood pressure 140/65, respiratory rate 20, pulse of 86, temperature 97.2, O2 sat on room air is 93%. HEENT reveals pupils that are equal. Chest reveals expiratory wheeze. Cardiovascular system reveals an S1 and S2. ABDOMEN: Soft. There is no edema. IMPRESSION: 1. Influenza B bronchitis. 2. Bronchospasm. 3. Possible asthma with exacerbation. Resume her IV steroids at high dose 60 mg IV push q.6. Continue bronchodilators, aerosolized steroids and Tamiflu. She was counseled regarding her condition and has a limited understanding of our recommendations.
[2016-09-16] MEDS: methylPREDNISolone SOD SUCCI 125 MG/2 ML VIAL IV SCH ×2 (00:05→05:33)
[2016-09-16] MEDS: LEVOTHYROXINE 100 MCG TAB PO SCH (05:33)
[2016-09-16] MEDS: ALPRAZolam 0.25 MG TAB PO SCH ×2 (08:01→20:56)
[2016-09-16] MEDS: ATORVASTATIN 20 MG TAB PO SCH (08:01)
[2016-09-16] MEDS: BENZONATATE 100 MG CAP PO SCH ×3 (08:01→20:56)
[2016-09-16] MEDS: ASCORBIC ACID 500 MG TAB PO SCH (08:01)
[2016-09-16] MEDS: ENOXAPARIN 40 MG/0.4 ML SYRINGE SQ SCH (08:02)
[2016-09-16] MEDS: amLODIPine 5 MG TAB PO SCH ×2 (08:02→20:56)
[2016-09-16] MEDS: ASPIRIN 81 MG CHEW PO SCH (08:02)
[2016-09-16] MEDS: FLUoxetine HCL 20 MG CAP PO SCH (08:05)
[2016-09-16] MEDS: FAMOTIDINE 20 MG TAB PO SCH (08:05)
[2016-09-16] MEDS: LISINOPRIL 20 MG TAB PO SCH (08:05)
[2016-09-16] MEDS: OSELTAMIVIR 75 MG CAP PO SCH ×2 (08:05→20:56)
[2016-09-16] MEDS: BUDESONIDE 0.5 MG/2 ML NEBU INHALATION SCH ×2 (09:00→20:16)
[2016-09-16] MEDS: IPRATROPIUM-ALBUTEROL 3 ML NEB INHALATION SCH ×4 (09:00→20:16)
--- NOTE | 2016-09-16 11:07 | P.PN ---
Subjective Principal diagnosis: Influenza B Patient seen and examined. Patient states her breathing is better overall. She is still having wheezing. She is wondering when she can go home. Her daughter is at bedside and all questions are answered to her apparent satisfaction. Objective - Vital Signs Vital signs: Vital Signs Temp 98.0 F 09/16/16 07:00 Pulse 84 09/16/16 09:20 Resp 16 09/16/16 08:00 BP 151/79 09/16/16 07:00 Pulse Ox 94 L 09/16/16 07:00 Intake & Output 09/15/16 09/16/16 09/16/16 18:59 06:59 18:59 Intake Total 50 Balance 50 Weight 78.925 kg Intake: Oral 50 Other: Voiding Method Toilet Toilet Toilet # Voids 2 1 1 # Bowel Movements 1 - Exam Gen.: Patient is alert and oriented 3, no acute distress Cardiovascular: Regular rate and rhythm, S1/S2 Lungs: Diffuse bilateral expiratory wheezing Abdomen: Soft nontender nondistended positive bowel sounds Extremities: 2-3+ pitting edema - Labs CBC & Chem 7: 09/14/16 07:35 09/14/16 07:35 Assessment and Plan Plan: Influenza B Tracheobronchitis Bronchospasm Possible asthma with acute exacerbation Hypertension Dyslipidemia Hypothyroidism GERD Depression O2 to maintain saturation greater than equal to 88% Continue Tamiflu Antibiotics: Will add levaquin Bronchodilators and Pulmicort Steroid taper Antitussives PRN Singulair Repeat chest x-ray Incentive spirometry and pulmonary hygiene GI and DVT prophylaxis: Lovenox and Pepcid
[2016-09-16] MEDS: LEVOFLOXACIN 500MG-D5W PMX 500 MG in DEXTROSE/WATER 1 100ML.BAG IVPB SCH (12:09)
--- NOTE | 2016-09-16 13:26 | XR ---
EXAMINATION TYPE: XR chest 2V DATE OF EXAM: 09/16/2016 1:20 PM COMPARISON: 09/13/2016 TECHNIQUE: PA and lateral views submitted. HISTORY: Fever and cough FINDINGS: The lungs are clear and there is no pneumothorax, pleural effusion, or focal pneumonia. Large hiata l hernia noted. Diffuse osteopenia and arthropathy of the shoulders. IMPRESSION: 1. No acute process. 2. Large hiatal hernia appears increased in size.
--- NOTE | 2016-09-16 14:02 | P.PN ---
Subjective 80-year-old female one of Dr. Srinivas Reid patient with past medical history of hypertension hyperlipidemia and hypothyroidism was known to have mild depression has been living with family member for the last 2 years since her . Patient apparently was in the emergency department on Wednesday last week for worsening upper respiratory infection her influenza came back positive was sent home on Tamiflu for 5 days. 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 Patient was started on steroids along with DuoNeb and was diagnosed with atypical pneumonitis as well started on Zithromax and continue her Tamiflu will admit patient to the hospital, patient will be seen pulmonary as well. 09/14: Patient has been seen by Dr. CARLIE Uriarte from pulmonary medicine. Solu- Medrol is at 60 mg IV every 6 hours will be decreased to 40 mg every 8. Patient is continued on Tamiflu, nebulizer treatments, Pulmicort, Tessalon Perles and Singulair. 09/15: Patient states her breathing seems to be worse today. Only medicine has changed steroids to 60 mg IV every 6 hours for 4 doses. IV fluids changed to saline lock. Patient is complaining of blurred vision for which a consult was placed with Dr. Wise and patient will see on Wednesday in office. 09/16: Patient is currently on Solu-Medrol 40 mg every 8 hours. Plan to switch to oral prednisone in the morning and probable discharge tomorrow. Objective - Vital Signs Vital signs: Vital Signs Temp 98.0 F 09/16/16 07:00 Pulse 84 09/16/16 09:20 Resp 16 09/16/16 07:00 BP 151/79 09/16/16 07:00 Pulse Ox 94 L 09/16/16 07:00 Intake & Output 09/15/16 09/16/16 09/16/16 18:59 06:59 18:59 Intake Total 50 Balance 50 Weight 78.925 kg Intake: Oral 50 Other: Voiding Method Toilet Toilet # Voids 2 1 1 # Bowel Movements 1 - Exam General appearance: no average body habitus, cooperative, no disheveled, mild distress, no morbidly obese, no no acute distress, no obese, no severe distress , no thin - EENT Eyes: no abnormal pupil, no anicteric sclerae, no disc margins sharp, no edentulous, no EOMI, no PERRLA, no fundus normal, no photophobia, no dentition normal, no poor dentition, no ptosis, no scleral icterus, normal appearance ENT: hard of hearing, no hearing grossly normal, no NA/AT, no normal oropharynx , no other, pharyngeal erythema, no thrush, no tonsillar exudates, no tonsillar swelling Ears: bilateral: normal, bulging - Neck Neck: no lymphadenopathy, normal ROM, no other, no rigidity, no stridor, no thyromegaly Carotids: bilateral: upstroke normal, upstroke delayed Thyroid: bilateral: normal size - Respiratory Respiratory: bilateral: diminished, dullness, rales, rhonchi, wheezing - Cardiovascular Rhythm: regular Heart sounds: normal: S1, S2 Abnormal Heart Sounds: systolic murmur, S3 Gallop - Gastrointestinal General gastrointestinal: no absent bowel sounds, decreased bowel sounds, no distended, no hepatomegaly, no hyperactive bowel sounds, normal bowel sounds, no organomegaly, no rigid, no scaphoid, soft, no splenomegaly, tenderness, no umbilical hernia, no ventral hernia - Integumentary Integumentary: no calor, no cellulitis, no cyanotic, no decreased turgor, no flushed, no jaundiced, normal, no normal turgor, pale, rash, no ulcer - Neurologic Neurologic: CNII-XII intact - Musculoskeletal Musculoskeletal: gait normal, generalized weakness, strength equal bilaterally, no right sided weakness, no left sided weakness - Psychiatric Psychiatric: A&O x's 3, appropriate affect - Labs CBC & Chem 7: 09/14/16 07:35 09/14/16 07:35 Assessment and Plan Plan: 1 acute respiratory distress due to combination of severe bronchitis, influenza , early pneumonitis, COPD exacerbation. Continue DuoNeb treatments, Tamiflu, Solu-Medrol, Singulair, Pulmicort. Consult with Dr. CARLIE Uriarte appreciated. 2 COPD exacerbation. Continue his #1 3 acute pneumonitis: Most likely atypical, continue Zithromax. Repeat chest x- ray tomorrow 4 influenza: Continue Tamiflu until Wednesday. 5 hypertension: Continue patient on Benzapril amlodipine continue to watch for any hypotension specially with her current condition. 6 hyperlipidemia: Patient is on Lipitor 20 mg a day resume medication. 7 hypothyroidism: Continue patient on levothyroxine in the micrograms daily. 8 chronic depression, recurrent: Patient is on the fluoxetine 20 mg a day and alprazolam 0.25 g every 8 hours as needed. 9 GERD/GI prophylaxis: Patient be on Pepcid 20 mg daily. 10 DVT prophylaxis: Was start patient on heparin 5000 units subcutaneous twice a day along with knee-high GINNY hose. 11. Vision left eye. Patient to follow-up with Dr. Wise on Wednesday in office. CODE STATUS: Full code. Discharge plan: Return home. Impression and plan of care have been directed as dictated by the signing physician. Nita De La Torre nurse practitioner acting as scribe for signing physician. Time with Patient: Greater than 30
[2016-09-16] MEDS ORDERED: methylPREDNISolone SOD SUCCI 40 MG/ML 1 ML VIAL IV SCH (16:00)
[2016-09-16] MEDS: MONTELUKAST 10 MG TAB PO SCH (20:56)
[2016-09-17] MEDS: LEVOTHYROXINE 100 MCG TAB PO SCH (05:36)
[2016-09-17] MEDS: BUDESONIDE 0.5 MG/2 ML NEBU INHALATION SCH (07:47)
[2016-09-17] MEDS: IPRATROPIUM-ALBUTEROL 3 ML NEB INHALATION SCH ×2 (07:47→12:12)
[2016-09-17 07:54] VITALS: BP 158/77; TEMP 97.9
[2016-09-17] MEDS: ATORVASTATIN 20 MG TAB PO SCH (08:28)
[2016-09-17] MEDS: ASPIRIN 81 MG CHEW PO SCH (08:28)
[2016-09-17] MEDS: OSELTAMIVIR 75 MG CAP PO SCH (08:28)
[2016-09-17] MEDS: ENOXAPARIN 40 MG/0.4 ML SYRINGE SQ SCH (08:28)
[2016-09-17] MEDS: FLUoxetine HCL 20 MG CAP PO SCH (08:28)
[2016-09-17] MEDS: ASCORBIC ACID 500 MG TAB PO SCH (08:28)
[2016-09-17] MEDS: amLODIPine 5 MG TAB PO SCH (08:28)
[2016-09-17] MEDS: ALPRAZolam 0.25 MG TAB PO SCH (08:28)
[2016-09-17] MEDS: LISINOPRIL 20 MG TAB PO SCH (08:28)
[2016-09-17] MEDS: FAMOTIDINE 20 MG TAB PO SCH (08:28)
[2016-09-17] MEDS: BENZONATATE 100 MG CAP PO SCH (08:28)
[2016-09-17] MEDS ORDERED: predniSONE 20 MG TAB PO SCH (09:00)
[2016-09-17 11:15] VITALS: PULSE 82
--- NOTE | 2016-09-17 11:57 | P.PN ---
Subjective Principal diagnosis: Influenza B Patient seen and examined. Patient states she feels a little bit better today however she still wheezing. The patient was apparently placed on oxygen overnight while she was sleeping. She is asking to go home. Objective - Vital Signs Vital signs: Vital Signs Temp 97.9 F 09/17/16 07:00 Pulse 82 09/17/16 08:00 Resp 16 09/17/16 07:00 BP 158/77 09/17/16 07:00 Pulse Ox 93 L 09/17/16 07:00 Intake & Output 09/16/16 09/17/16 09/17/16 18:59 06:59 18:59 Intake Total 340 100 Balance 340 100 Intake: Intake, IV Titration 100 Amount Levofloxacin 500Mg-D5w 100 Pmx 500 mg In Dextrose/ Water 1 100ml.bag @ 100 mls/hr IVPB Q24H [facility] Rx#: [id number] Oral 240 100 Other: Voiding Method Toilet Toilet Toilet # Voids 1 1 - Exam Gen.: Patient is alert and oriented 3, no acute distress Cardiovascular: Regular rate and rhythm, S1/S2 Lungs: Diffuse bilateral expiratory wheezing Abdomen: Soft nontender nondistended positive bowel sounds Extremities: 2-3+ pitting edema - Labs CBC & Chem 7: 09/14/16 07:35 09/14/16 07:35 Assessment and Plan Plan: Influenza B Tracheobronchitis Bronchospasm Possible asthma with acute exacerbation Hypertension Dyslipidemia Hypothyroidism GERD Depression O2 to maintain saturation greater than equal to 88% Continue Tamiflu Antibiotics: Will add levaquin Bronchodilators and Pulmicort - increase Pulmicort dose for now Steroid taper Antitussives PRN Singulair Incentive spirometry and pulmonary hygiene GI and DVT prophylaxis: Lovenox and Pepcid
--- NOTE | 2016-09-17 12:22 | P.DS ---
Providers Date of admission: 09/13/16 10:59 Expected date of discharge: 09/17/16 Attending physician: Dayday Santamaria Consults: 09/13/16 12:38 Consult Physician Routine Consulting Provider: Micah Uriarte Consult Reason/Comments: Asthma Do you want consulting provider notified?: Yes Primary care physician: [facility] Course: 80-year-old female one of Dr. Srinivas Reid patient with past medical history of hypertension hyperlipidemia and hypothyroidism was known to have mild depression has been living with family member for the last 2 years since her . Patient apparently was in the emergency department on Wednesday last week for worsening upper respiratory infection her influenza came back positive was sent home on Tamiflu for 5 days. 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 Patient was started on steroids along with DuoNeb and was diagnosed with atypical pneumonitis as well started on Zithromax and continue her Tamiflu will admit patient to the hospital, patient will be seen pulmonary as well. 09/14: Patient has been seen by Dr. CARLIE Uriarte from pulmonary medicine. Solu- Medrol is at 60 mg IV every 6 hours will be decreased to 40 mg every 8. Patient is continued on Tamiflu, nebulizer treatments, Pulmicort, Tessalon Perles and Singulair. 09/15: Patient states her breathing seems to be worse today. Only medicine has changed steroids to 60 mg IV every 6 hours for 4 doses. IV fluids changed to saline lock. Patient is complaining of blurred vision for which a consult was placed with Dr. Wise and patient will see on Wednesday in office. 09/16: Patient is currently on Solu-Medrol 40 mg every 8 hours. Plan to switch to oral prednisone in the morning and probable discharge tomorrow. 09/17:Patient's breathing status is stable. She will be discharged home today in stable condition. Discharge diagnoses: 1 acute respiratory distress due to combination of severe bronchitis, influenza , early pneumonitis, COPD exacerbation. 2 COPD exacerbation. Continue his #1 3 acute pneumonitis: Most likely atypical, continue Zithromax. 4 influenza 5 hypertension 6 hyperlipidemia 7 hypothyroidism 8 chronic depression, recurrent 9 GERD 10. Loss of vision left eye. Patient to follow with Dr. Wise on Wednesday as scheduled. Discharge plan: Home Impression and plan of care have been directed as dictated by the signing physician. Nita De La Torre nurse practitioner acting as scribe for signing physician. Cc: Dr. Srinivas Reid Patient Condition at Discharge: Good Plan - Discharge Summary New Discharge Prescriptions: Benzonatate [Tessalon Perles] 100 mg PO TID #21 cap Levofloxacin [Levaquin] 500 mg PO DAILY #5 tab Montelukast [Singulair] 10 mg PO HS #30 tab predniSONE 0 mg PO DIRECTED #40 tab Discharge Medication List ALPRAZolam [Xanax] 0.25 mg PO BID 01/14/14 [History] Ascorbic Acid [Vitamin C] 500 mg PO DAILY 01/14/14 [History] FLUoxetine HCL [Fluoxetine HCl] 20 mg PO QAM 01/14/14 [History] Levothyroxine Sodium [Synthroid] 100 mcg PO DAILY 01/14/14 [History] amLODIPine BESYLATE/BENAZEPRIL [Amlodipine-Benazepril 5-20 mg] 1 cap PO BID 12/23 [History] Atorvastatin [Lipitor] 20 mg PO DAILY 03/30/16 [History] Acetaminophen-Codeine 300-30mg [Tylenol w/codeine #3] 1 tab PO BID PRN 09/13/16 [History] Aspirin EC [Ecotrin Low Dose] 162 mg PO DAILY 09/13/16 [History] Benzonatate [Tessalon Perles] 100 mg PO TID #21 cap 09/17/16 [Rx] Levofloxacin [Levaquin] 500 mg PO DAILY #5 tab 09/17/16 [Rx] Montelukast [Singulair] 10 mg PO HS #30 tab 09/17/16 [Rx] predniSONE 0 mg PO DIRECTED #40 tab 09/17/16 [Rx] Follow up Appointment(s)/Referral(s): Srinivas Reid MD [Primary Care Provider] - 1 Week Mirella Wise MD [STAFF PHYSICIAN] - 09/18/16 2:00 pm Discharge Disposition: HOME SELF-CARE
[2016-09-17] MEDS ORDERED: BUDESONIDE 0.5 MG/2 ML NEBU INHALATION SCH (12:30)
[2016-09-17] MEDS: LEVOFLOXACIN 500MG-D5W PMX 500 MG in DEXTROSE/WATER 1 100ML.BAG IVPB SCH (13:41)
== END 2016-09-17 13:30 | disposition home or self-care (01) | DRG 194 ==
LOC: EC 09:45 → 5MS5E 10:59
PROVIDERS: ADMIT Internal Medicine Geriatric Medicine; ATTEND Internal Medicine Geriatric Medicine
DX: J10.00 Influenza due to other identified influenza virus with unspecified type of pneumonia (principal); J44.1 Chronic obstructive pulmonary disease with (acute) exacerbation; J44.0 Chronic obstructive pulmonary disease with (acute) lower respiratory infection; I50.30 Unspecified diastolic (congestive) heart failure; F33.9 Major depressive disorder, recurrent, unspecified; J45.901 Unspecified asthma with (acute) exacerbation; I11.0 Hypertensive heart disease with heart failure; F41.9 Anxiety disorder, unspecified; J40 Bronchitis, not specified as acute or chronic; E78.5 Hyperlipidemia, unspecified; E03.9 Hypothyroidism, unspecified; K21.9 Gastro-esophageal reflux disease without esophagitis; H54.62 Unqualified visual loss, left eye, normal vision right eye; Z79.82 Long term (current) use of aspirin; Z79.899 Other long term (current) drug therapy
CPT/HCPCS: 36415; 71020; 80053; 82550; 82553; 83735; 83880; 84484; 85025; 85610; 85730; 87040; 87502; 93005; 94640; 96361; 96374; 96375; 99285

== ENCOUNTER 2016-12-19 11:31 | Emergency (ER) | payer MEDICARE, BC ==
[2016-12-19] MEDS ORDERED: DIPH,PERTUS(ACELL)TETVAC-LF 0.5 ML VIAL IM ONE (11:56)
--- NOTE | 2016-12-19 12:00 | ED ---
Fall HPI - General Chief Complaint: Fall Stated Complaint: Fall Time Seen by Provider: 12/19/16 11:37 Source: patient, EMS Mode of arrival: EMS - History of Present Illness Initial Comments: This patient is an 81-year-old woman who states that she had been getting out of bed, went to step over a dog gate and then tripped and fell landing on her forehead. Patient's family called EMS because she had significant laceration and bleeding. The patient denied loss of consciousness. She does have some frontal headache. She denies neck pain or injury. She denies any other injuries. MD Complaint: fall -: minutes(s) When Fall Occurred: just prior to arrival Fall Witnessed: yes, by family Place Fall Occurred: home Prolonged Down Time?: no Symptoms Prior to Fall: none Location: head, face - Related Data Home Medications Medication Instructions Recorded Confirmed ALPRAZolam [Xanax] 0.25 mg PO BID 01/14/14 12/19/16 Ascorbic Acid [Vitamin C] 500 mg PO DAILY 01/14/14 09/13/16 FLUoxetine HCL [Fluoxetine HCl] 20 mg PO QAM 01/14/14 12/19/16 Levothyroxine Sodium [Synthroid] 100 mcg PO DAILY 01/14/14 12/19/16 amLODIPine BESYLATE/BENAZEPRIL 1 cap PO BID 01/14/14 12/19/16 [Amlodipine-Benazepril 5-20 mg] Atorvastatin [Lipitor] 20 mg PO DAILY 03/30/16 12/19/16 Acetaminophen-Codeine 300-30mg 1 tab PO BID PRN 09/13/16 09/13/16 [Tylenol w/codeine #3] Aspirin EC [Ecotrin Low Dose] 162 mg PO DAILY 09/13/16 09/13/16 Previous Rx's Medication Instructions Recorded Montelukast [Singulair] 10 mg PO HS #30 tab 09/17/16 Allergies Allergy/AdvReac Type Severity Reaction Status Date / Time No Known Allergies Allergy Verified 12/19/16 12:11 Review of Systems ROS Statement: Those systems with pertinent positive or pertinent negative responses have been documented in the HPI. ROS Other: All systems not noted in ROS Statement are negative. 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 Denies: vision change ENT: Denies: hearing loss, epistaxis Respiratory: Denies: cough, dyspnea Cardiovascular: Denies: chest pain, palpitations, syncope Gastrointestinal: Denies: abdominal pain, vomiting, diarrhea Musculoskeletal: Denies: back pain, joint swelling, arthralgia Skin: Denies: rash Neurological: Reports: as per HPI, headache. Denies: weakness, numbness, paresthesias, confusion Hematological/Lymphatic: Denies: easy bleeding Past Medical History Past Medical History: COPD, Hyperlipidemia, Hypertension, Thyroid Disorder History of Any Multi-Drug Resistant Organisms: None Reported Past Surgical History: Cholecystectomy, Hernia Repair, Tubal Ligation Additional Past Surgical History / Comment(s): THYROIDECTOMY, varicose vein stripping Past Anesthesia/Blood Transfusion Reactions: No Reported Reaction Past Psychological History: Anxiety Smoking Status: Never smoker Past Alcohol Use History: None Reported Past Drug Use History: None Reported - Past Family History Mother Family Medical History: Diabetes Mellitus Father Family Medical History: Pneumonia Sister(s) Family Medical History: Cancer General Exam Limitations: no limitations General appearance: alert, in no apparent distress Head exam: Present: normocephalic, other (Patient has a large stellate incision to the frontal and parietal scalp. No obvious bony deformity or tenderness.) Eye exam: Present: normal appearance. Absent: scleral icterus, conjunctival injection ENT exam: Present: normal oropharynx Neck exam: Present: normal inspection, other (Patient is in cervical collar there is no tenderness or obvious deformity.). Absent: tenderness Respiratory exam: Present: normal lung sounds bilaterally. Absent: respiratory distress, wheezes, rales, rhonchi, stridor, chest wall tenderness Cardiovascular Exam: Present: regular rate, normal rhythm, normal heart sounds. Absent: systolic murmur, diastolic murmur, rubs, gallop GI/Abdominal exam: Present: soft. Absent: distended, tenderness, guarding, rebound, mass Extremities exam: Present: normal inspection, normal capillary refill. Absent: pedal edema, calf tenderness Back exam: Present: normal inspection. Absent: CVA tenderness (R), CVA tenderness (L), vertebral tenderness Neurological exam: Present: alert, oriented X3, CN II-XII intact. Absent: motor sensory deficit Skin exam: Present: warm, dry, normal color, other (Laceration, see above). Absent: rash Course Vital Signs 12/19/16 11:34 Temperature 98.2 F Pulse Rate 91 Respiratory 18 Rate Blood Pressure 136/67 O2 Sat by Pulse 95 Oximetry Procedures - Laceration Laceration #1 Consent Obtained: verbal consent Time Out Performed: Yes Indication: laceration Site: scalp Size (cm): 15 Description: stellate Depth: involves muscle layer Anesthetic Used: lidocaine 1%, with epi Anesthesia Technique: local infiltration Pre-repair: wound explored, irrigated extensively Type of Sutures: nylon, vicryl Number of Sutures: 28 Technique: simple, interrupted Patient Tolerated Procedure: well, no complications Medical Decision Making - Lab Data Result diagrams: 12/19/16 12:20 Lab Results 12/19/16 Range/Units 12:20 Sodium 139 (137-145) mmol/L Potassium 4.0 (3.5-5.1) mmol/L Chloride 110 H (98-107) mmol/L Carbon Dioxide 20 L (22-30) mmol/L Anion Gap 9 mmol/L BUN 25 H (7-17) mg/dL Creatinine 0.72 (0.52-1.04) mg/dL Est GFR (MDRD) Af Amer >60 (>60 ml/min/1.73 sqM) Est GFR (MDRD) Non-Af >60 (>60 ml/min/1.73 sqM) Glucose 140 H (74-99) mg/dL Calcium 8.8 (8.4-10.2) mg/dL Disposition Clinical Impression: Fall, Head injury, Scalp laceration Disposition: HOME SELF-CARE Condition: Fair Instructions: Fall Prevention for Older Adults (ED), Laceration (ED), Head Injury (ED) Referrals: Dayday Santamaria MD [Primary Care Provider] - 1-2 days
--- NOTE | 2016-12-19 12:27 | CT ---
EXAMINATION TYPE: CT brain anitha mcgovern DATE OF EXAM: 12/19/2016 COMPARISON: NONE HISTORY: Traumatic fall injury with headache and neck pain as well as laceration injury. CT DLP: 1411 mGycm. Automated Exposure Control for Dose Reduction was Utilized. TECHNIQUE: CT scan of the head and cervical spine are performed without contrast. FINDINGS: There is no acute intracranial hemorrhage or midline shift identified. There is ventricul ar and sulcal prominence. There is right frontal laceration injury with subcutaneous air and small to moderate size scalp hematoma both noted. The calvarium is intact. The globes are intact and the vis ualized sinuses are clear. Cervical spine is visualized in its entirety from C1 through upper thoracic levels and demonstrates r eversal of normal cervical curvature without evidence of acute fracture or dislocation. Prevertebral soft tissue appears within normal limits. The C1-C2 articulation is within normal limits on the cor onal images. Osseous structures are demineralized. Vertebral body heights are maintained. There is moderate to sev ere disc space narrowing and spurring C5-C6 and C6-C7 levels. No large posterior disc herniations are seen on sagittal images. Broad-based posterior disc protrusion causes effacement of the anterior thecal sac and moderate bilat eral neural foraminal narrowing at C5-C6 level on axial images. There is left foraminal spurring caus ing advanced left-sided neural foraminal narrowing at C6-C7 level on axial image 50. Visualized lung apices are clear. Thyroid gland is atrophic or surgically absent. IMPRESSION: 1. There is no acute fracture or dislocation evident in the cervical spine. 2. No acute intracranial hemorrhage or midline shift is seen. There is mild to moderate diffuse cereb ral atrophy. There is small to moderate-size right frontal acute scalp hematoma and laceration noted.
[2016-12-19 12:49] LABS: Anion Gap 9 mmol/L; Blood Urea Nitrogen 25 mg/dL (7-17); Calcium 8.8 mg/dL (8.4-10.2); Carbon Dioxide 20 mmol/L (22-30); Chloride 110 mmol/L (98-107); Glucose 140 mg/dL (74-99); Non-African American GFR(MDRD) >60 (>60 ml/min/1.73 sqM); Sodium 139 mmol/L (137-145)
[2016-12-19 14:54] VITALS: PULSE 79
[2016-12-19 15:23] VITALS: BP 121/67; RESP 18; TEMP 97.9
== END 2016-12-19 15:20 | disposition home or self-care (01) ==
LOC: EC 11:31
DX: S01.01XA Laceration without foreign body of scalp, initial encounter (principal); I10 Essential (primary) hypertension; E07.9 Disorder of thyroid, unspecified; E78.5 Hyperlipidemia, unspecified; Z23 Encounter for immunization; Z79.82 Long term (current) use of aspirin; F41.9 Anxiety disorder, unspecified; Z79.899 Other long term (current) drug therapy; W18.31XA Fall on same level due to stepping on an object, initial encounter
CPT/HCPCS: 12035; 36415; 70450; 72125; 80048; 90471; 90715; 99285

== ENCOUNTER 2016-12-22 09:54 | Emergency (ER) | payer MEDICARE, BC ==
[2016-12-22] MEDS ORDERED: SODIUM CHLORIDE 0.9% 1,000 ML IV STA (10:21)
[2016-12-22] MEDS ORDERED: LORazepam 1 MG TAB PO STA (10:29)
--- NOTE | 2016-12-22 10:29 | ED ---
Weakness HPI - General Chief complaint: Weakness Stated complaint: Head Injury Time Seen by Provider: 12/22/16 10:11 Source: patient, family Mode of arrival: wheelchair Limitations: physical limitation - History of Present Illness Initial comments: She fell about 5 days. Her head against a hard surface and has a large laceration on the scalp was 5 days ago. Today she feels weak all over she feels shaky lack of energy lack of appetite. Denies any headache no neck stiffness no fever no chills no chest pain no shortness of breath no abdominal pain no frequency urgency dysuria no TIA or CVA like symptoms just feeling weak in general - Related Data Home Medications Medication Instructions Recorded Confirmed ALPRAZolam [Xanax] 0.25 mg PO BID 01/14/14 12/22/16 Ascorbic Acid [Vitamin C] 500 mg PO DAILY 01/14/14 12/22/16 FLUoxetine HCL [Fluoxetine HCl] 20 mg PO QAM 01/14/14 12/22/16 Levothyroxine Sodium [Synthroid] 100 mcg PO DAILY 01/14/14 12/22/16 amLODIPine BESYLATE/BENAZEPRIL 1 cap PO BID 01/14/14 12/22/16 [Amlodipine-Benazepril 5-20 mg] Atorvastatin [Lipitor] 20 mg PO DAILY 03/30/16 12/22/16 Acetaminophen-Codeine 300-30mg 1 tab PO BID PRN 09/13/16 12/22/16 [Tylenol w/codeine #3] Aspirin EC [Ecotrin Low Dose] 162 mg PO DAILY 09/13/16 12/22/16 Previous Rx's Medication Instructions Recorded Montelukast [Singulair] 10 mg PO HS #30 tab 09/17/16 Allergies Allergy/AdvReac Type Severity Reaction Status Date / Time No Known Allergies Allergy Verified 12/22/16 10:37 Review of Systems ROS Statement: Those systems with pertinent positive or pertinent negative responses have been documented in the HPI. ROS Other: All systems not noted in ROS Statement are negative. Past Medical History Past Medical History: COPD, Hyperlipidemia, Hypertension, Thyroid Disorder History of Any Multi-Drug Resistant Organisms: None Reported Past Surgical History: Cholecystectomy, Hernia Repair, Tubal Ligation Additional Past Surgical History / Comment(s): THYROIDECTOMY, varicose vein stripping Past Anesthesia/Blood Transfusion Reactions: No Reported Reaction Past Psychological History: Anxiety Smoking Status: Never smoker Past Alcohol Use History: None Reported Past Drug Use History: None Reported - Past Family History Mother Family Medical History: Diabetes Mellitus Father Family Medical History: Pneumonia Sister(s) Family Medical History: Cancer General Exam - General Exam Comments Initial Comments: General: The patient is awake and alert, in no distress, and does not appear acutely ill. March the laceration repaired on her anterior part of the skull, GCS is 15 Skin: Skin is warm and dry and no rashes or lesions are noted. Noticed a large repair done on the anterior part of the scalp, wound looks good Eye: Pupils are equal, round and reactive to light, extra-ocular movements are intact; there is normal conjunctiva bilaterally. Ears, nose, mouth and throat: There are moist mucous membranes and no oral lesions. Neck: The neck is supple, there is no tenderness or JVD. Cardiovascular: There is a regular rate and rhythm. No murmur, rub or gallop is appreciated. Respiratory: To auscultation bilateral, breath sounds are diminished bilaterally at the bases Gastrointestinal: Soft, non-distended, non-tender abdomen without masses or organomegaly noted. There is no rebound or guarding present. Bowel sounds are unremarkable. Back: There is no tenderness to palpation in the midline. There is no obvious deformity. Musculoskeletal: Normal ROM, no tenderness, There is no pedal edema. There is no calf tenderness or swelling. No cords were appreciated. Neurological: CN II-XII intact, Cranial nerves III through XII are intact. There are no obvious motor or sensory deficits. Coordination appears grossly intact. Speech is normal. Psychiatric: Cooperative, appropriate mood & affect, normal judgment. Limitations: physical limitation Course Vital Signs 12/22/16 12/22/16 12/22/16 09:56 10:18 13:00 Temperature 97.8 F 98.1 F Pulse Rate 92 86 83 Respiratory 20 15 18 Rate Blood Pressure 155/71 138/66 124/66 O2 Sat by Pulse 96 95 95 Oximetry Emergency reassessed at 1700, CBC, compressive metabolic panel, INR, troponin, EKG, urinalysis, head CT and chest x-ray are within normal range the findings were discussed with patient and her daughter and they were reassured there were advised to follow with the Dr. Santamaria will come back to ER if symptoms get worse EKG Findings - EKG Comments: EKG Findings:: Normal sinus rhythm medical rate is 84 HI interval is 148 QRS duration is 68 QT/QTc is 370/437 and review of this EKG does not reveal any ST elevation or ST depression Medical Decision Making - Lab Data Result diagrams: 12/22/16 11:21 12/22/16 11:21 Lab Results 12/22/16 12/22/16 12/22/16 Range/Units 11:21 11:21 11:21 WBC 5.6 (3.8-10.6) k/uL RBC 3.28 L (3.80-5.40) m/uL Hgb 9.6 L (11.4-16.0) gm/dL Hct 31.2 L (34.0-46.0) % MCV 95.3 (80.0-100.0) fL MCH 29.4 (25.0-35.0) pg MCHC 30.9 L (31.0-37.0) g/dL RDW 15.2 (11.5-15.5) % Plt Count 196 (150-450) k/uL Neutrophils % 69 % Lymphocytes % 20 % Monocytes % 6 % Eosinophils % 3 % Basophils % 1 % Neutrophils # 3.9 (1.3-7.7) k/uL Lymphocytes # 1.1 (1.0-4.8) k/uL Monocytes # 0.3 (0-1.0) k/uL Eosinophils # 0.2 (0-0.7) k/uL Basophils # 0.0 (0-0.2) k/uL Hypochromasia Slight PT (9.0-12.0) sec INR (<1.1) APTT (22.0-30.0) sec Sodium 143 (137-145) mmol/L Potassium 3.6 (3.5-5.1) mmol/L Chloride 111 H (98-107) mmol/L Carbon Dioxide 24 (22-30) mmol/L Anion Gap 8 mmol/L BUN 20 H (7-17) mg/dL Creatinine 0.71 (0.52-1.04) mg/dL Est GFR (MDRD) Af Amer >60 (>60 ml/min/1.73 sqM) Est GFR (MDRD) Non-Af >60 (>60 ml/min/1.73 sqM) Glucose 108 H (74-99) mg/dL Plasma Lactic Acid Vicente (0.7-2.0) mmol/L Calcium 8.6 (8.4-10.2) mg/dL Total Bilirubin 0.5 (0.2-1.3) mg/dL AST 15 (14-36) U/L ALT 21 (9-52) U/L Alkaline Phosphatase 97 (38-126) U/L Total Creatine Kinase 34 (30-135) U/L CK-MB (CK-2) 0.5 (0.0-2.4) ng/mL CK-MB (CK-2) Rel Index 1.5 Troponin I <0.012 (0.000-0.034) ng/mL Total Protein 6.1 L (6.3-8.2) g/dL Albumin 3.6 (3.5-5.0) g/dL Urine Color Urine Appearance (Clear) Urine pH (5.0-8.0) Ur Specific [place] (1.001-1.035) Urine Protein (Negative) Urine Glucose (UA) (Negative) Urine Ketones (Negative) Urine Blood (Negative) Urine Nitrite (Negative) Urine Bilirubin (Negative) Urine Urobilinogen (<2.0) mg/dL Ur Leukocyte Esterase (Negative) 12/22/16 12/22/16 12/22/16 Range/Units 11:21 11:21 12:20 WBC (3.8-10.6) k/uL RBC (3.80-5.40) m/uL Hgb (11.4-16.0) gm/dL Hct (34.0-46.0) % MCV (80.0-100.0) fL MCH (25.0-35.0) pg MCHC (31.0-37.0) g/dL RDW (11.5-15.5) % Plt Count (150-450) k/uL Neutrophils % % Lymphocytes % % Monocytes % % Eosinophils % % Basophils % % Neutrophils # (1.3-7.7) k/uL Lymphocytes # (1.0-4.8) k/uL Monocytes # (0-1.0) k/uL Eosinophils # (0-0.7) k/uL Basophils # (0-0.2) k/uL Hypochromasia PT 9.9 (9.0-12.0) sec INR 1.0 (<1.1) APTT 24.4 (22.0-30.0) sec Sodium (137-145) mmol/L Potassium (3.5-5.1) mmol/L Chloride (98-107) mmol/L Carbon Dioxide (22-30) mmol/L Anion Gap mmol/L BUN (7-17) mg/dL Creatinine (0.52-1.04) mg/dL Est GFR (MDRD) Af Amer (>60 ml/min/1.73 sqM) Est GFR (MDRD) Non-Af (>60 ml/min/1.73 sqM) Glucose (74-99) mg/dL Plasma Lactic Acid Vicente 1.4 (0.7-2.0) mmol/L Calcium (8.4-10.2) mg/dL Total Bilirubin (0.2-1.3) mg/dL AST (14-36) U/L ALT (9-52) U/L Alkaline Phosphatase (38-126) U/L Total Creatine Kinase (30-135) U/L CK-MB (CK-2) (0.0-2.4) ng/mL CK-MB (CK-2) Rel Index Troponin I (0.000-0.034) ng/mL Total Protein (6.3-8.2) g/dL Albumin (3.5-5.0) g/dL Urine Color Yellow Urine Appearance Clear (Clear) Urine pH 5.0 (5.0-8.0) Ur Specific [place] 1.016 (1.001-1.035) Urine Protein Negative (Negative) Urine Glucose (UA) Negative (Negative) Urine Ketones Negative (Negative) Urine Blood Negative (Negative) Urine Nitrite Negative (Negative) Urine Bilirubin Negative (Negative) Urine Urobilinogen <2.0 (<2.0) mg/dL Ur Leukocyte Esterase Negative (Negative) Disposition Clinical Impression: Generalized weakness, History of traumatic head injury Disposition: HOME SELF-CARE Condition: Good Instructions: Fatigue (ED) Referrals: Dayday Santamaria MD [Primary Care Provider] - 1-2 days
--- NOTE | 2016-12-22 11:11 | CT ---
EXAMINATION TYPE: CT brain wo con DATE OF EXAM: 12/22/2016 COMPARISON: December 19, 2016 HISTORY: Weakness, head injury CT DLP: 1017.90 mGycm Automated exposure control for dose reduction was used. FINDINGS: There is no acute intracranial hemorrhage, mass effect, or midline shift identified. The v entricles and sulci are within normal limits in size. No intracranail gas bubbles. The globes are int act and the visualized sinuses are clear. Right frontal scalp swelling and tiny gas bubbles redemonstrated. IMPRESSION: NO ACUTE CRANIAL/INTRACRANIAL PROCESS.
--- NOTE | 2016-12-22 11:27 | XR ---
EXAMINATION TYPE: XR chest 2V DATE OF EXAM: 12/22/2016 COMPARISON: NONE TECHNIQUE: PA and lateral views submitted. HISTORY: Weakness FINDINGS: The lungs are clear and there is no pneumothorax, pleural effusion, or focal pneumonia. Large hiata l hernia noted. Degenerative changes of the spine. Arthropathy of the shoulders. No overt failure. He art is enlarged. IMPRESSION: 1. Cardiomegaly with a large hiatal hernia..
[2016-12-22 11:29] LABS: Basophils % (A) 1 %; CH 29.7; CHCM 31.3; Eosinophils # (A) 0.2 k/uL (0-0.7); Eosinophils % (A) 3 %; HCT 31.2 % (34.0-46.0); HDW 2.78; HGB 9.6 gm/dL (11.4-16.0); Hypochromasia Slight; Luc % (Auto) 2; Lymphocytes # (A) 1.1 k/uL (1.0-4.8); Lymphocytes % (A) 20 %; MCH 29.4 pg (25.0-35.0); MCHC 30.9 g/dL (31.0-37.0); MCV 95.3 fL (80.0-100.0); Mean Platelet Volume 8.6; Monocytes # (A) 0.3 k/uL (0-1.0); Monocytes % (A) 6 %; Neutrophils # (A) 3.9 k/uL (1.3-7.7); Neutrophils % (A) 69 %; RBC 3.28 m/uL (3.80-5.40); RDW 15.2 % (11.5-15.5); WBC 5.6 k/uL (3.8-10.6); WBC (Perox) 5.78
[2016-12-22 11:35] LABS: Partial Thromboplastin Time 24.4 sec (22.0-30.0); Prothrombin Time 9.9 sec (9.0-12.0)
[2016-12-22 11:38] LABS: ALT 21 U/L (9-52); AST 15 U/L (14-36); Alkaline Phosphatase 97 U/L (38-126); Anion Gap 8 mmol/L; Blood Urea Nitrogen 20 mg/dL (7-17); Calcium 8.6 mg/dL (8.4-10.2); Carbon Dioxide 24 mmol/L (22-30); Chloride 111 mmol/L (98-107); Glucose 108 mg/dL (74-99); Non-African American GFR(MDRD) >60 (>60 ml/min/1.73 sqM); Potassium 3.6 mmol/L (3.5-5.1); Sodium 143 mmol/L (137-145); Total Bilirubin 0.5 mg/dL (0.2-1.3); Total Protein 6.1 g/dL (6.3-8.2)
[2016-12-22 12:01] LABS: Creatine Kinase 34 U/L (30-135)
[2016-12-22 12:13] LABS: Creatine Kinase MB 0.5 ng/mL (0.0-2.4); Troponin I <0.012 ng/mL (0.000-0.034)
[2016-12-22 12:39] LABS: Appearance,Urine Clear (Clear); Bilirubin,Urine Negative (Negative); Glucose,Urine (UA) Negative (Negative); Ketones,Urine Negative (Negative); Leukocyte Esterase,Urine Negative (Negative); Nitrite,Urine Negative (Negative); Protein,Urine Negative (Negative); Specific Gravity,Urine 1.016 (1.001-1.035); UA Billing (MACRO vs. MICRO) CHEM; Urobilinogen,Urine <2.0 mg/dL (<2.0)
[2016-12-22 13:16] VITALS: BP 124/66; PULSE 83; RESP 18
[2016-12-22 13:31] VITALS: TEMP 97
== END 2016-12-22 13:33 | disposition home or self-care (01) ==
LOC: EC 09:54
DX: S01.01XD Laceration without foreign body of scalp, subsequent encounter (principal); R53.1 Weakness; F41.9 Anxiety disorder, unspecified; E78.5 Hyperlipidemia, unspecified; I10 Essential (primary) hypertension; E07.9 Disorder of thyroid, unspecified; Z79.82 Long term (current) use of aspirin; Z79.899 Other long term (current) drug therapy; X58.XXXD Exposure to other specified factors, subsequent encounter
CPT/HCPCS: 36415; 70450; 71020; 80053; 81003; 82550; 82553; 83605; 84484; 85025; 85610; 85730; 93005; 96360; 96361; 99285

== ENCOUNTER 2018-09-29 10:00 | Day surgery (SDC) | payer MEDICARE, BC ==
[2018-09-23 11:44] VITALS: BMI 34.2
[~2018-09-29 10:00] MED LIST: DEXAMETHASONE SOD PHOSPHATE 4 MG/ML 1 ML VIAL IV ONE; FAMOTIDINE 20 MG/2 ML VIAL IV ONE; HYDROmorphone 0.5 MG/0.5 ML SYRINGE IVP PRN; LACTATED RINGERS 1,000 ML IV SCH; LIDOCAINE 1% 20 ML VIAL (10MG/ML) FOR IV START INTRADERMA PRN; ONDANSETRON 4 MG/2 ML VIAL IVP ONE; ceFAZolin 1,000 MG in DEXTROSE/WATER 1 50ML.BAG IV ONE; fentaNYL (PF) 50 MCG/ML 2 ML AMP IV PRN
[2018-09-29 10:36] VITALS: RESP 16
[2018-09-29] MEDS ORDERED: DEXAMETHASONE SOD PHOSPHATE 10 MG/ML 1 ML VIAL IV ONE (10:52)
[2018-09-29] MEDS ORDERED: SUCCINYLCHOLINE CHLORIDE 100 MG/5 ML SYR IV ONE (12:28)
[2018-09-29] MEDS ORDERED: PROPOFOL 10 MG/ML 20 ML VIAL IV ONE (12:28)
[2018-09-29] MEDS ORDERED: fentaNYL (PF) 50 MCG/ML 2 ML AMP ONE (12:28)
[2018-09-29] MEDS ORDERED: LIDOCAINE 1% INJ 10MG/ML (20 ML MDV) ONE (12:28)
[2018-09-29] MEDS ORDERED: BACITRACIN 500 UNIT/GM OINT 28.4 GM TUBE TOPICAL ONE (12:30)
[2018-09-29] MEDS ORDERED: LIDOCAINE 1%-EPI 1:100,000 20 ML VIAL SQ ONE (13:12)
[2018-09-29] MEDS ORDERED: BUPIVACAIN-EPI 0.5%-1:200,000 30 ML VIAL SQ ONE (13:12)
[2018-09-29] MEDS ORDERED: LACTATED RINGERS 1,000 ML IV ONE (14:39)
[2018-09-29 15:07] VITALS: TEMP 97.3
--- NOTE | 2018-09-29 15:20 | P.OP ---
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 Postoperative Diagnosis: same Procedure(s) Performed: Excision of a 5 x 6 cm glabellar malignancy with frozen section and reconstruction with use of a full-thickness skin graft Excision of a 5 x 2 cm right druze malignancy with frozen section and reconstruction with use of a bilateral advancement flap with a secondary defect measuring 10 x 4 cm Excision of a 5 x 2.3 cm right cheek malignancy with frozen section and reconstruction with use of a bilateral advancement flap with a secondary defect measuring 10 x 4.6 cm Anesthesia: FLORENCIAA Surgeon: Brad Bethea Estimated Blood Loss (ml): 10 Pathology: other (all specimens were sent) Condition: stable Disposition: PACU Indications for Procedure: 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 Surgical removal is recommended. All risks, benefits, and alternative therapies were discussed. Consent was obtained and all questions were answered. Operative Findings: Frozen sections on all 3 specimens demonstrate clean margins. Description of Procedure: This patient was taken to the operating room and placed in the supine position. A general inhalation anesthetic was administered to the patient by mask and subsequently intubated with a cuffed endotracheal tube by the department of anesthesia with a functioning IV line in place. The patient was monitored throughout the entire case by the department of anesthesia. The face was sterilely prepped and draped in usual fashion the lesions were marked and anesthetized with lidocaine 1% with epinephrine 1 100,000. 10 minutes were allowed wait for full vasoconstrictive effects to take place. Attention was paid to the glabellar lesion which was excised with a 15 blade cauterization was performed with low level on a polar cautery. We marked this lesion sent for frozen section and all margins came back negative for tumor. We then moved to the neck where an appropriate amount of skin was harvested with use of a 15 blade extensive undermining in all directions and closing this in a complex fashion with use of 4-0 Monocryl deeply 4-0 Monocryl in the deep dermal layer and a 50 rapid Vicryl in a running nonlocking fashion. Dressing was applied. The skin was cut to size and placed as an overlay graft after the skin was defatted. A bolster dressing was applied with use of 50 rapid Vicryl. We utilized cottonball with Adaptic with bacitracin ointment as the compression. This was quite large defect measuring 5 x 6 cm. Attention was then paid to the right druze with this lesion was excised which measured 5 x 2 cm. We sent this for frozen section after excision and we did elevate medial and lateral advancement flaps for closure of this large fascial defect. We rotated the skin into position and close this deeply with 4-0 Monocryl the deep dermal layer with 4-0 Monocryl and the skin with a 50 rapid Vicryl. Excellent approximation was obtained the secondary defect for the advancement flap measured 10 x 4 cm. We did removed burrows triangles 1 week transposed the skin flaps into position to close the defect. Attention was then paid to the right cheek were a large defect measuring 5 x 2.3 cm was excised and sent for frozen section and all margins came back negative for tumor we developed medial and lateral based pedicle flaps and rotated them into position to close this large defect. Are secondary defect measured 10 x 4.6 cm. We closed the deep dermal layers with a 4-0 Monocryl we closed the mid skin with a 4-0 Monocryl and the skin on the final closure was with a 50 rapid Vicryl. Excellent approximation was obtained. The patient tolerated this well and a follow-up is scheduled for 1 week. A compression dressing was applied to the right druze lesion.
[2018-09-29 17:37] VITALS: BP 119/73; PULSE 77
== END 2018-09-29 17:25 | disposition home or self-care (01) ==
LOC: OR 10:00
PROVIDERS: ATTEND Otolaryngology
DX: C44.309 Unspecified malignant neoplasm of skin of other parts of face (principal); Z85.828 Personal history of other malignant neoplasm of skin; I10 Essential (primary) hypertension; E07.9 Disorder of thyroid, unspecified; E78.5 Hyperlipidemia, unspecified; J44.9 Chronic obstructive pulmonary disease, unspecified; F41.9 Anxiety disorder, unspecified; Z79.890 Hormone replacement therapy; Z79.51 Long term (current) use of inhaled steroids; Z79.899 Other long term (current) drug therapy
CPT/HCPCS: 88305; 88331; 11646; 15240; 15241; 14301; 14302; J1100; J2405; J2001; J3010; J0690; J0330; J2704

== ENCOUNTER 2019-03-21 17:35 | Emergency (ER) | payer MEDICARE, BC ==
--- NOTE | 2019-03-21 17:47 | ED ---
Fall HPI - General Chief Complaint: Fall Stated Complaint: Fall, facial injury Time Seen by Provider: 03/21/19 17:45 Source: patient, RN notes reviewed, old records reviewed Mode of arrival: ambulatory - History of Present Illness Initial Comments: This is an 83-year-old female the ER for evaluation. Patient has history of fall. Patient felt his prior to arrival landing on her face. Patient states she was doing some stuff of the skateboard tenderness a bit is busy. Patient did hit her head with no loss of consciousness is not on blood thinners. Denies any other injury or pain aside from the bridge of her nose and for her. No bleeding noted. MD Complaint: fall -: minutes(s) Fall From: standing When Fall Occurred: 1 hour [employer] COORD[employer] Fall Witnessed: yes, by family, yes, by bystander Place Fall Occurred: home Loss of Consciousness: none Prolonged Down Time?: no Symptoms Prior to Fall: none Location: head, face Severity: mild Severity scale (1-10): 2 Quality: aching Context: tripped/slipped Associated Symptoms: denies - Related Data Home Medications Medication Instructions Recorded Confirmed ALPRAZolam [Xanax] 0.25 mg PO BID 01/14/14 03/21/19 Ascorbic Acid [Vitamin C] 500 mg PO DAILY 01/14/14 03/21/19 FLUoxetine HCL [Fluoxetine HCl] 60 mg PO QAM 01/14/14 03/21/19 Levothyroxine Sodium [Synthroid] 75 mcg PO DAILY 01/14/14 03/21/19 amLODIPine BESYLATE/BENAZEPRIL 1 cap PO DAILY 01/14/14 03/21/19 [Amlodipine-Benazepril 5-20 mg] Atorvastatin [Lipitor] 20 mg PO HS 03/30/16 03/21/19 Aspirin EC [Ecotrin Low Dose] 81 mg PO HS 09/13/16 03/21/19 Montelukast [Singulair] 10 mg PO DAILY 03/21/19 03/21/19 Allergies Allergy/AdvReac Type Severity Reaction Status Date / Time No Known Allergies Allergy Verified 03/21/19 18:07 Review of Systems ROS Statement: Those systems with pertinent positive or pertinent negative responses have been documented in the HPI. ROS Other: All systems not noted in ROS Statement are negative. Past Medical History Past Medical History: Cancer, COPD, Hyperlipidemia, Hypertension, Thyroid Disorder Additional Past Medical History / Comment(s): hx skin cancer, possible tia, lose of vision lt eye, experiences shaking in hands, head and chin History of Any Multi-Drug Resistant Organisms: None Reported Past Surgical History: Cholecystectomy, Hernia Repair, Tubal Ligation Additional Past Surgical History / Comment(s): THYROIDECTOMY, varicose vein stripping Past Anesthesia/Blood Transfusion Reactions: No Reported Reaction Past Psychological History: Anxiety Smoking Status: Never smoker Past Alcohol Use History: None Reported Past Drug Use History: None Reported - Past Family History Mother Family Medical History: Diabetes Mellitus Father Family Medical History: Pneumonia Sister(s) Family Medical History: Cancer General Exam Limitations: physical limitation General appearance: alert, in no apparent distress Head exam: Present: normocephalic, normal inspection. Absent: atraumatic (A she does have bruising to entire nose with no significant deformity no septal hematoma) Eye exam: Present: normal appearance, PERRL, EOMI. Absent: scleral icterus, conjunctival injection, periorbital swelling ENT exam: Present: normal exam, mucous membranes moist, other (nose contusion and defomity no septal hematoma) Neck exam: Present: normal inspection. Absent: tenderness, meningismus, lymphadenopathy Respiratory exam: Present: normal lung sounds bilaterally. Absent: respiratory distress, wheezes, rales, rhonchi, stridor Cardiovascular Exam: Present: regular rate, normal rhythm, normal heart sounds. Absent: systolic murmur, diastolic murmur, rubs, gallop, clicks GI/Abdominal exam: Present: soft, normal bowel sounds. Absent: distended, tenderness, guarding, rebound, rigid Extremities exam: Present: normal inspection, full ROM, normal capillary refill. Absent: tenderness, pedal edema, joint swelling, calf tenderness Back exam: Present: normal inspection Neurological exam: Present: alert, oriented X3, CN II-XII intact Psychiatric exam: Present: normal affect, normal mood Skin exam: Present: warm, dry, intact, normal color. Absent: rash Course Vital Signs 03/21/19 03/21/19 17:37 18:46 Temperature 98.3 F Pulse Rate 85 76 Respiratory 18 16 Rate Blood Pressure 148/82 133/90 O2 Sat by Pulse 96 98 Oximetry - Reevaluation(s) Reevaluation #1: 03/21/19 19:39 Medical records reviewed Reevaluation #2: 03/21/19 19:39 no distress able and without difficulty Medical Decision Making - Medical Decision Making 83 female the ER for evaluation presented for evaluation regards to fall. Patient has fall with head injury no skin fractures, no injury intracranial. CT is negative patient can be discharged home - Radiology Data Radiology results: report reviewed (CT brain C-spine and facial bones negative for traumatic injury), image reviewed Disposition Clinical Impression: Fall, Head injury Disposition: HOME SELF-CARE Condition: Good Instructions (If sedation given, give patient instructions): Fall Prevention for Older Adults (ED), Head Injury (ED) Is patient prescribed a controlled substance at d/c from ED?: No Referrals: Dayday Santamaria MD [Primary Care Provider] - 1-2 days
[2019-03-21 18:52] VITALS: RESP 16
--- NOTE | 2019-03-21 19:05 | CT ---
EXAMINATION TYPE: CT brain cainine wo con DATE OF EXAM: 03/21/2019 COMPARISON: CT 12/22/1971 HISTORY: Fall, nose laceration CT DLP: 852.4 mGycm Automated exposure control for dose reduction was used. TECHNIQUE: CT scan of the head and cervical spine are performed without contrast. FINDINGS: There is no acute intracranial hemorrhage, mass effect, or midline shift identified. The ventricles and sulci are within normal limits in size. The globes are intact and the visualized sin uses are clear. Cervical spine is visualized in its entirety from C1 through upper thoracic levels and demonstrates s atisfactory alignment without evidence of acute fracture or dislocation. Prevertebral soft tissue ap pears within normal limits. Markedly advanced multilevel cervical spondylosis changes are seen. The C 1-C2 articulation is unremarkable. IMPRESSION: 1. There is no acute fracture or dislocation evident in the cervical spine. 2. No acute intracranial hemorrhage, mass effect, or midline shift is seen.
--- NOTE | 2019-03-21 19:10 | CT ---
EXAMINATION TYPE: CT facial bones wo con DATE OF EXAM: 03/21/2019 COMPARISON: None HISTORY: fall, nose laceration CT DLP: 625.9 mGycm Automated exposure control for dose reduction was used. TECHNIQUE: CT scan of the sinuses is performed without contrast, axial images are obtained, coronal r eformatted images are also reviewed. FINDINGS: There is slight buckling of the left nasal bone cortex suggesting virtually nondisplaced fr acture. Nasal bones and anterior nasal spine otherwise unremarkable. Nasal cavity also unremarkable. The orbits are intact The paranasal sinuses and middle ear cavities and mastoid sinus air cells are clear. No incidental fi ndings. No other evidence for fracture. IMPRESSION: SUBTLE LEFT NASAL BONE FINDING. Incidental finding: Marked cardiac silhouette enlargement.
[2019-03-21 20:43] VITALS: BP 168/81; PULSE 78; TEMP 98
== END 2019-03-21 20:43 | disposition home or self-care (01) ==
LOC: EC 17:35
DX: S00.33XA Contusion of nose, initial encounter (principal); J44.9 Chronic obstructive pulmonary disease, unspecified; E78.5 Hyperlipidemia, unspecified; I10 Essential (primary) hypertension; E07.9 Disorder of thyroid, unspecified; F41.9 Anxiety disorder, unspecified; Z79.82 Long term (current) use of aspirin; Z79.890 Hormone replacement therapy; Z79.899 Other long term (current) drug therapy; Z85.828 Personal history of other malignant neoplasm of skin; W01.0XXA Fall on same level from slipping, tripping and stumbling without subsequent striking against object, initial encounter; Y93.89 Activity, other specified; Y92.009 Unspecified place in unspecified non-institutional (private) residence as the place of occurrence of the external cause
CPT/HCPCS: 70450; 70486; 72125; 99284

== ENCOUNTER 2021-08-18 11:33 | Inpatient (IN) | payer BC, MEDICARE ==
--- NOTE | 2021-08-18 11:48 | ED ---
General Adult HPI - General Source: patient, EMS, RN notes reviewed Mode of arrival: EMS Limitations: altered mental status, physical limitation <Salvador Kent - Last Filed: 08/18/21 16:11> <Deepthi Diaz - Last Filed: 08/18/21 21:40> - General Stated complaint: Altered mental status Time Seen by Provider: 08/18/21 11:39 - History of Present Illness Initial comments: Patient is a pleasant 85-year-old female presenting to the emergency department for general weakness. Patient is a very poor historian. Patient supposedly lives at home with family. Patient states she has been more weak and having difficulty walking now. Patient does not feel confused. Patient reportedly has been declining since COVID-19 infection a couple of months ago. Patient does admit to decreased oral intake. Patient denies any isolated area of weakness. Patient is a poor historian. (Salvador Kent) - Related Data Home Medications Medication Instructions Recorded Confirmed ALPRAZolam [Xanax] 0.25 mg PO DAILY PRN 01/14/14 08/18/21 FLUoxetine HCL [Fluoxetine HCl] 20 mg PO DAILY 01/14/14 08/18/21 amLODIPine BESYLATE/BENAZEPRIL 1 cap PO DAILY 01/14/14 08/18/21 [Amlodipine-Benazepril 5-20 mg] Atorvastatin [Lipitor] 20 mg PO HS 03/30/16 08/18/21 Aspirin EC [Ecotrin Low Dose] 81 mg PO DAILY 09/13/16 08/18/21 Montelukast [Singulair] 10 mg PO HS 03/21/19 08/18/21 ALPRAZolam [Xanax] 0.25 mg PO HS 08/18/21 08/18/21 Donepezil [Aricept] 5 mg PO HS 08/18/21 08/18/21 Levothyroxine Sodium [Synthroid] 75 mcg PO DAILY 08/18/21 08/18/21 Omeprazole 20 mg PO DAILY 08/18/21 08/18/21 Allergies Allergy/AdvReac Type Severity Reaction Status Date / Time No Known Allergies Allergy Verified 08/18/21 12:18 Review of Systems ROS Other: All systems not noted in ROS Statement are negative. Constitutional: Denies: fever Eyes: Denies: eye pain ENT: Denies: ear pain Respiratory: Denies: cough Cardiovascular: Denies: chest pain Endocrine: Reports: fatigue Gastrointestinal: Denies: abdominal pain Genitourinary: Denies: dysuria Musculoskeletal: Denies: back pain Skin: Denies: rash Neurological: Reports: as per HPI <Salvador Kent Last Filed: 08/18/21 16:11> ROS Other: All systems not noted in ROS Statement are negative. <Deepthi Diaz - Last Filed: 08/18/21 21:40> ROS Statement: Those systems with pertinent positive or pertinent negative responses have been documented in the HPI. Past Medical History Past Medical History: Cancer, COPD, Hyperlipidemia, Hypertension, Thyroid Disorder Additional Past Medical History / Comment(s): hx skin cancer, possible tia, lose of vision lt eye, experiences shaking in hands, head and chin History of Any Multi-Drug Resistant Organisms: None Reported Past Surgical History: Cholecystectomy, Hernia Repair, Tubal Ligation Additional Past Surgical History / Comment(s): THYROIDECTOMY, varicose vein stripping Past Anesthesia/Blood Transfusion Reactions: No Reported Reaction Past Psychological History: Anxiety Past Alcohol Use History: None Reported Past Drug Use History: None Reported - Past Family History Mother Family Medical History: Diabetes Mellitus Father Family Medical History: Pneumonia Sister(s) Family Medical History: Cancer <Salvador Kent Last Filed: 08/18/21 16:11> General Exam Limitations: no limitations General appearance: in no apparent distress, other (Drowsy) Head exam: Present: normocephalic Eye exam: Present: normal appearance, PERRL ENT exam: Present: mucous membranes dry Neck exam: Present: normal inspection Respiratory exam: Present: normal lung sounds bilaterally Cardiovascular Exam: Present: regular rate, normal rhythm GI/Abdominal exam: Present: soft. Absent: tenderness Neurological exam: Present: other (Patient is drowsy. Slow to follow commands) Expanded Neurological exam: Present: protecting the airway Patient oriented to: Present: person, place. Absent: time Motor strength exam: RUE: 4, LUE: 4, RLE: 4, LLE: 4 Eye Response: (4) open spontaneously Motor Response: (6) obeys commands Verbal Response: (4) confused conversation Psychiatric exam: Present: flat affect Skin exam: Present: normal color. Absent: rash <Salvador Kent Last Filed: 08/18/21 16:11> Course <Salvador Kent - Last Filed: 08/18/21 16:11> Vital Signs 08/18/21 08/18/21 08/18/21 12:17 17:05 18:49 Temperature 98.2 F 98.0 F Pulse Rate 79 78 72 Respiratory 18 18 18 Rate Blood Pressure 115/69 107/64 129/78 O2 Sat by Pulse 98 97 99 Oximetry 08/18/21 21:00 Temperature 98.9 F Pulse Rate 88 Respiratory 16 Rate Blood Pressure 98/63 O2 Sat by Pulse 96 Oximetry - Reevaluation(s) Reevaluation #1: 08/18/21 14:46 CT report read at this time. Did not receive call prior to this. 08/18/21 15:37 Patient was earlier reevaluated and unchanged. Family updated on results. MRI has been ordered and attempting to get stat MRI done at this time. (Salvador Kent) EKG Findings - EKG Comments: EKG Findings:: Sinus rhythm with rate of 84. MD 176. QRS 64. QT 408. QTC 42. Normal axis. Premature ventricular complex and supraventricular complexes. Q wave in lead III. Lateral T wave inversion. <Salvador Kent - Last Filed: 08/18/21 16:11> Medical Decision Making - Lab Data Result diagrams: 08/18/21 12:30 08/18/21 12:30 - Radiology Data Radiology results: report reviewed (Computed tomography scan of the brain shows right frontal lobe sulcal effacement and vague area of increased attenuation which may reflect underlying petechial hemorrhage with tiny subarachnoid hemorrhage difficult to exclude. Correlate with MRI. ), image reviewed (Chest x-ray shows no evidence of acute pulmonary disease.) <Salvador Kent - Last Filed: 08/18/21 16:11> - Lab Data Result diagrams: 08/18/21 12:30 08/18/21 12:30 <Deepthi Diaz - Last Filed: 08/18/21 21:40> - Medical Decision Making Patient signed out to me from Dr. Kent pending MRI of the brain. Patient does go for imaging study which demonstrates no evidence of acute intracranial bleed. Findings on CT felt to represent cortical calcification. Patient may be admitted for facility. Spoke to Dr. Santamaria who accepted admission. (Deepthi Diaz) - Lab Data Lab Results 08/18/21 08/18/21 08/18/21 Range/Units 12:30 12:30 12:30 WBC 14.0 H (3.8-10.6) k/uL RBC 4.08 (3.80-5.40) m/uL Hgb 12.9 (11.4-16.0) gm/dL Hct 38.4 (34.0-46.0) % MCV 94.1 (80.0-100.0) fL MCH 31.7 (25.0-35.0) pg MCHC 33.7 (31.0-37.0) g/dL RDW 14.6 (11.5-15.5) % Plt Count 188 (150-450) k/uL MPV 8.3 Neutrophils % 88 % Lymphocytes % 5 % Monocytes % 5 % Eosinophils % 0 % Basophils % 0 % Neutrophils # 12.3 H (1.3-7.7) k/uL Lymphocytes # 0.7 L (1.0-4.8) k/uL Monocytes # 0.7 (0-1.0) k/uL Eosinophils # 0.1 (0-0.7) k/uL Basophils # 0.0 (0-0.2) k/uL PT 10.4 (9.0-12.0) sec INR 0.9 (<1.2) APTT 22.3 (22.0-30.0) sec Sodium 131 L (137-145) mmol/L Potassium 2.4 L* (3.5-5.1) mmol/L Chloride 87 L (98-107) mmol/L Carbon Dioxide 33 H (22-30) mmol/L Anion Gap 11 mmol/L BUN 52 H (7-17) mg/dL Creatinine 2.00 H (0.52-1.04) mg/dL Est GFR (CKD-EPI)AfAm 25 (>60 ml/min/1.73 sqM) Est GFR (CKD-EPI)NonAf 22 (>60 ml/min/1.73 sqM) Glucose 123 H (74-99) mg/dL POC Glucose (mg/dL) (75-99) mg/dL POC Glu Stock Shaper ID Plasma Lactic Acid Vicente (0.7-2.0) mmol/L Calcium 8.0 L (8.4-10.2) mg/dL Phosphorus 3.8 (2.5-4.5) mg/dL Magnesium 1.2 L (1.6-2.3) mg/dL Total Bilirubin 1.6 H (0.2-1.3) mg/dL AST 212 H (14-36) U/L ALT 243 H (4-34) U/L Alkaline Phosphatase 119 (38-126) U/L Troponin I (0.000-0.034) ng/mL Total Protein 5.8 L (6.3-8.2) g/dL Albumin 3.2 L (3.5-5.0) g/dL TSH 6.310 H (0.465-4.680) mIU/L Free T4 2.38 H (0.78-2.19) ng/dL Free T3 pg/mL 1.9 L (2.8-5.3) pg/ml Urine Color Urine Appearance (Clear) Urine pH (5.0-8.0) Ur Specific Buna (1.001-1.035) Urine Protein (Negative) Urine Glucose (UA) (Negative) Urine Ketones (Negative) Urine Blood (Negative) Urine Nitrite (Negative) Urine Bilirubin (Negative) Urine Urobilinogen (<2.0) mg/dL Ur Leukocyte Esterase (Negative) Urine RBC (0-5) /hpf Urine WBC (0-5) /hpf Ur Squamous Epith Cells (0-4) /hpf Urine Bacteria (None) /hpf Urine Mucus (None) /hpf Urine Yeast (Budding) (None) /hpf Coronavirus (PCR) (Not Detectd) 08/18/21 08/18/21 08/18/21 Range/Units 12:30 12:30 12:32 WBC (3.8-10.6) k/uL RBC (3.80-5.40) m/uL Hgb (11.4-16.0) gm/dL Hct (34.0-46.0) % MCV (80.0-100.0) fL MCH (25.0-35.0) pg MCHC (31.0-37.0) g/dL RDW (11.5-15.5) % Plt Count (150-450) k/uL MPV Neutrophils % % Lymphocytes % % Monocytes % % Eosinophils % % Basophils % % Neutrophils # (1.3-7.7) k/uL Lymphocytes # (1.0-4.8) k/uL Monocytes # (0-1.0) k/uL Eosinophils # (0-0.7) k/uL Basophils # (0-0.2) k/uL PT (9.0-12.0) sec INR (<1.2) APTT (22.0-30.0) sec Sodium (137-145) mmol/L Potassium (3.5-5.1) mmol/L Chloride (98-107) mmol/L Carbon Dioxide (22-30) mmol/L Anion Gap mmol/L BUN (7-17) mg/dL Creatinine (0.52-1.04) mg/dL Est GFR (CKD-EPI)AfAm (>60 ml/min/1.73 sqM) Est GFR (CKD-EPI)NonAf (>60 ml/min/1.73 sqM) Glucose (74-99) mg/dL POC Glucose (mg/dL) 116 H (75-99) mg/dL POC Glu Stock Shaper Gaurav Johnson Plasma Lactic Acid Vicente 1.2 (0.7-2.0) mmol/L Calcium (8.4-10.2) mg/dL Phosphorus (2.5-4.5) mg/dL Magnesium (1.6-2.3) mg/dL Total Bilirubin (0.2-1.3) mg/dL AST (14-36) U/L ALT (4-34) U/L Alkaline Phosphatase (38-126) U/L Troponin I 0.132 H* (0.000-0.034) ng/mL Total Protein (6.3-8.2) g/dL Albumin (3.5-5.0) g/dL TSH (0.465-4.680) mIU/L Free T4 (0.78-2.19) ng/dL Free T3 pg/mL (2.8-5.3) pg/ml Urine Color Urine Appearance (Clear) Urine pH (5.0-8.0) Ur Specific Buna (1.001-1.035) Urine Protein (Negative) Urine Glucose (UA) (Negative) Urine Ketones (Negative) Urine Blood (Negative) Urine Nitrite (Negative) Urine Bilirubin (Negative) Urine Urobilinogen (<2.0) mg/dL Ur Leukocyte Esterase (Negative) Urine RBC (0-5) /hpf Urine WBC (0-5) /hpf Ur Squamous Epith Cells (0-4) /hpf Urine Bacteria (None) /hpf Urine Mucus (None) /hpf Urine Yeast (Budding) (None) /hpf Coronavirus (PCR) (Not Detectd) 08/18/21 08/18/21 Range/Units 15:34 21:07 WBC (3.8-10.6) k/uL RBC (3.80-5.40) m/uL Hgb (11.4-16.0) gm/dL Hct (34.0-46.0) % MCV (80.0-100.0) fL MCH (25.0-35.0) pg MCHC (31.0-37.0) g/dL RDW (11.5-15.5) % Plt Count (150-450) k/uL MPV Neutrophils % % Lymphocytes % % Monocytes % % Eosinophils % % Basophils % % Neutrophils # (1.3-7.7) k/uL Lymphocytes # (1.0-4.8) k/uL Monocytes # (0-1.0) k/uL Eosinophils # (0-0.7) k/uL Basophils # (0-0.2) k/uL PT (9.0-12.0) sec INR (<1.2) APTT (22.0-30.0) sec Sodium (137-145) mmol/L Potassium (3.5-5.1) mmol/L Chloride (98-107) mmol/L Carbon Dioxide (22-30) mmol/L Anion Gap mmol/L BUN (7-17) mg/dL Creatinine (0.52-1.04) mg/dL Est GFR (CKD-EPI)AfAm (>60 ml/min/1.73 sqM) Est GFR (CKD-EPI)NonAf (>60 ml/min/1.73 sqM) Glucose (74-99) mg/dL POC Glucose (mg/dL) (75-99) mg/dL POC Glu Stock Shaper ID Plasma Lactic Acid Vicente (0.7-2.0) mmol/L Calcium (8.4-10.2) mg/dL Phosphorus (2.5-4.5) mg/dL Magnesium (1.6-2.3) mg/dL Total Bilirubin (0.2-1.3) mg/dL AST (14-36) U/L ALT (4-34) U/L Alkaline Phosphatase (38-126) U/L Troponin I (0.000-0.034) ng/mL Total Protein (6.3-8.2) g/dL Albumin (3.5-5.0) g/dL TSH (0.465-4.680) mIU/L Free T4 (0.78-2.19) ng/dL Free T3 pg/mL (2.8-5.3) pg/ml Urine Color Yellow Urine Appearance Cloudy H (Clear) Urine pH 5.0 (5.0-8.0) Ur Specific Buna 1.019 (1.001-1.035) Urine Protein 1+ H (Negative) Urine Glucose (UA) Negative (Negative) Urine Ketones Trace H (Negative) Urine Blood Small H (Negative) Urine Nitrite Negative (Negative) Urine Bilirubin 1+ H (Negative) Urine Urobilinogen 3.0 (<2.0) mg/dL Ur Leukocyte Esterase Small H (Negative) Urine RBC <1 (0-5) /hpf Urine WBC 3 (0-5) /hpf Ur Squamous Epith Cells 2 (0-4) /hpf Urine Bacteria Many H (None) /hpf Urine Mucus Rare H (None) /hpf Urine Yeast (Budding) Few H (None) /hpf Coronavirus (PCR) Detected A (Not Detectd) Disposition <Salvador Kent - Last Filed: 08/18/21 16:11> Is patient prescribed a controlled substance at d/c from ED?: No Decision to Admit Reason: Admit from EC Decision Date: 08/18/21 Decision Time: 21:16 <Deepthi Diaz - Last Filed: 08/18/21 21:40> Clinical Impression: Dehydration, Hypomagnesemia, Hypokalemia, COVID-19 Disposition: ADMITTED IP TO THIS [facility] Condition: Serious
[2021-08-18 12:33] LABS: Glucose,Whole Blood 116 mg/dL (75-99)
[2021-08-18 12:45] LABS: Basophils % (A) 0 %; Eosinophils # (A) 0.1 k/uL (0-0.7); Eosinophils % (A) 0 %; HCT 38.4 % (34.0-46.0); HGB 12.9 gm/dL (11.4-16.0); Lymphocytes # (A) 0.7 k/uL (1.0-4.8); Lymphocytes % (A) 5 %; MCH 31.7 pg (25.0-35.0); MCHC 33.7 g/dL (31.0-37.0); MCV 94.1 fL (80.0-100.0); Mean Platelet Volume 8.3; Monocytes # (A) 0.7 k/uL (0-1.0); Monocytes % (A) 5 %; Neutrophils # (A) 12.3 k/uL (1.3-7.7); Neutrophils % (A) 88 %; Platelet Count 188 k/uL (150-450); RBC 4.08 m/uL (3.80-5.40); RDW 14.6 % (11.5-15.5)
[2021-08-18 12:58] LABS: Albumin 3.2 g/dL (3.5-5.0); Magnesium 1.2 mg/dL (1.6-2.3); Phosphorus 3.8 mg/dL (2.5-4.5); Total Bilirubin 1.6 mg/dL (0.2-1.3); Total Protein 5.8 g/dL (6.3-8.2)
--- NOTE | 2021-08-18 13:02 | XR ---
EXAMINATION TYPE: XR chest 2V DATE OF EXAM: 08/18/2021 COMPARISON: 12/22/16 HISTORY: Shortness of breath TECHNIQUE: Frontal and lateral views of the chest are obtained. FINDINGS: Scattered senescent parenchymal changes noted. Hyperinflation compatible with COPD. No evidence for infiltrate. No evidence for atelectasis. Large fixed hiatal hernia. Heart size is stable. Mediastinal structures are stable and grossly unremarkable. No evidence for hilar prominence. Degenerative changes dorsal spine. IMPRESSION: 1. No evidence for acute pulmonary disease.
[2021-08-18 13:03] LABS: Potassium 2.4 mmol/L (3.5-5.1)
[2021-08-18 13:08] LABS: INR 0.9 (<1.2); Partial Thromboplastin Time 22.3 sec (22.0-30.0); Prothrombin Time 10.4 sec (9.0-12.0)
--- NOTE | 2021-08-18 13:11 | CT ---
EXAMINATION TYPE: CT brain wo con DATE OF EXAM: 08/18/2021 COMPARISON: 03/21/2019 HISTORY: AMS CT DLP: 1099.[address] of the brain was performed. The ventricles, basal cisterns and sulci overlying the cerebral convexities demonstrate mild enlargem ent. Within the high right frontal lobe, there is sulcal effacement noted as well as vague areas of increa sed attenuation seen which may reflect underlying petechial hemorrhage with tiny subarachnoid hemorrh age difficult to exclude. Correlate with MRI. There is no evidence for midline shift. There is decreased attenuation about the periventricular white matter and deep white matter of both c erebral hemispheres, compatible with chronic small vessel ischemia. Differential diagnosis does inclu de demyelination. No mass effects are seen.No midline shift. Osseous calvarium is intact. If symptoms persist consider MRI. IMPRESSION: 1. Within the high right frontal lobe, there is sulcal effacement noted as well as vague areas of inc reased attenuation seen which may reflect underlying petechial hemorrhage with tiny subarachnoid hemo rrhage difficult to exclude. Correlate with MRI.
[2021-08-18 13:14] LABS: T4, Free (Free Thyroxine) 2.38 ng/dL (0.78-2.19)
[2021-08-18] MEDS ORDERED: POTASSIUM CHLORIDE ER 20 MEQ TAB.ER PO STA (14:17)
[2021-08-18] MEDS ORDERED: POTASSIUM CHLORIDE 20 MEQ in WATER FOR INJECTION 1 100ML.BAG IVPB STA (14:17)
[2021-08-18] MEDS ORDERED: MAGNESIUM SULFATE-D5W PMX 1 GM in DEXTROSE/WATER 1 100ML.BAG IVPB ONE (14:17)
[2021-08-18] MEDS ORDERED: MAGNESIUM OXIDE 400 MG TAB PO STA (14:17)
[2021-08-18] MEDS ORDERED: 0.9% NACL WITH KCL 20 MEQ/L 1,000 ML IV STA (14:18)
--- NOTE | 2021-08-18 20:12 | MR ---
INDICATION: Patient age:Female; 85 years old; Reason for study: ams, ? Hemorrhage; COMPARISON: CT head 08/18/2021 TECHNIQUE: Multi planar, multi sequence imaging was performed through the brain including: T1, T2, In version recovery, Diffusion weighted imaging, and gradient echo imaging. No gadolinium was given. FINDINGS: The cortex within the right frontal lobe is within normal limits. No T2 or T1 weighted sign al abnormality to correlate with CT. No evidence of restricted diffusion in this region. There is no evidence for acute blood on T1-weighted imaging. The ventricular system, and cisterns appear unremark able. Patchy areas of high T2 signal intensity are seen within the periventricular white matter. Mid line structures show no abnormality. Diffusion-weighted imaging shows no evidence of restricted diffu gera. The bone marrow signal is within normal limits. The paranasal sinuses are unremarkable. The lenses ar e not visualized in the globes. IMPRESSION: 1. No evidence of intracranial mass or acute/subacute infarct or evidence for intracranial hemorrhage . Findings on CT are felt to represent cortical calcification. 2. Nonspecific white matter changes, likely secondary to small vessel ischemic disease.
[2021-08-18] MEDS ORDERED: cefTRIAXone IN SWFI 1,000 MG/10 ML SYRINGE IVP STA (20:44)
[2021-08-18] MEDS ORDERED: NALOXONE 0.4 MG/ML 1 ML VIAL IV PRN (21:16)
[2021-08-18] MEDS ORDERED: ACETAMINOPHEN TAB 325 MG TAB PO PRN (21:16)
[2021-08-18 21:33] LABS: Appearance,Urine Cloudy (Clear); Bacteria,Urine Many /hpf; Bilirubin,Urine 1+ (Negative); Blood,Urine Small (Negative); Budding Yeast,Urine Few /hpf; Color,Urine Yellow; Glucose,Urine (UA) Negative (Negative); Ketones,Urine Trace (Negative); Leukocyte Esterase,Urine Small (Negative); Mucus,Urine Rare /hpf; Nitrite,Urine Negative (Negative); Protein,Urine 1+ (Negative); RBC,Urine <1 /hpf (0-5); Specific Gravity,Urine 1.019 (1.001-1.035); Squamous Epithelial Cell,Urine 2 /hpf (0-4); WBC,Urine 3 /hpf (0-5)
[2021-08-19] MEDS ORDERED: ALPRAZolam 0.25 MG TAB PO PRN (02:44)
[2021-08-19] MEDS: PANTOPRAZOLE 40 MG TABLET PO SCH (06:05)
[2021-08-19 06:17] LABS: Glucose,Whole Blood 85 mg/dL (75-99)
[2021-08-19 08:27] LABS: Potassium 2.9 mmol/L (3.5-5.1)
[2021-08-19 08:28] LABS: Calcium 7.6 mg/dL (8.4-10.2)
[2021-08-19 08:45] LABS: Basophils # (A) 0.1 k/uL (0-0.2); Basophils % (A) 1 %; Eosinophils # (A) 0.1 k/uL (0-0.7); Eosinophils % (A) 1 %; HCT 36.3 % (34.0-46.0); HGB 11.4 gm/dL (11.4-16.0); Hypochromasia Slight; Lymphocytes # (A) 0.8 k/uL (1.0-4.8); Lymphocytes % (A) 8 %; MCH 30.9 pg (25.0-35.0); MCHC 31.3 g/dL (31.0-37.0); MCV 98.7 fL (80.0-100.0); Macrocytosis Slight; Mean Platelet Volume 8.6; Monocytes # (A) 0.4 k/uL (0-1.0); Monocytes % (A) 4 %; Neutrophils # (A) 8.8 k/uL (1.3-7.7); Neutrophils % (A) 86 %; Platelet Count 162 k/uL (150-450); RBC 3.67 m/uL (3.80-5.40); RDW 15.2 % (11.5-15.5); WBC 10.2 k/uL (3.8-10.6)
[2021-08-19] MEDS ORDERED: Potassium Replacement Protocol 1 EACH MISC MISCELLANE PRN (08:45)
--- NOTE | 2021-08-19 09:34 | US ---
EXAMINATION TYPE: US abdomen complete DATE OF EXAM: 08/19/2021 COMPARISON: NONE CLINICAL HISTORY: WESLY, elevated LFTs. EXAM MEASUREMENTS: Liver Length: 13.9 cm Gallbladder Wall: Surgically absent cm CBD: 0.6 cm Spleen: 7.6 cm Right Kidney: 9.7 X 4.4 X 4.8 cm Left Kidney: 10.4 X 5.4 X 5.7 cm Technically difficult, performed portably on patient unable to change position. Pancreas: Obscured by bowel gas Liver: wnl Gallbladder: Surgically absent CBD: wnl Spleen: wnl Right Kidney: No hydronephrosis or masses seen Left Kidney: No hydronephrosis or masses seen Upper IVC: wnl Abd Aorta: obscured proximally, otherwise wnl. IMPRESSION: 1. Limited exam as noted by the technologist above demonstrates no definite acute process. Postcholec ystectomy changes noted.
[2021-08-19] MEDS: POTASSIUM CHLORIDE 20 MEQ in WATER FOR INJECTION 1 100ML.BAG IVPB SCH ×3 (09:49→14:47)
[2021-08-19] MEDS: ASPIRIN 81 MG PO SCH (09:56)
[2021-08-19] MEDS: amLODIPine 5 MG TAB PO SCH (09:56)
[2021-08-19] MEDS: lisinopriL 20 MG TAB PO SCH (09:56)
[2021-08-19] MEDS: FLUoxetine HCL 20 MG CAP PO SCH (09:56)
--- NOTE | 2021-08-19 11:27 | P.HPIM ---
History of Present Illness H&P Date: 08/19/21 HISTORY OF PRESENT ILLNESS This is an 85-year-old female patient of Dr. Santamaria with past medical history of hypertension, hyperlipidemia, gastroesophageal reflux disease, hypothyroidism, recurrent depression and generalized anxiety disorder, mild intermittent asthma. Family concern for generalized weakness and inability or difficulty walking, not eating or drinking and weight loss along with increased confusion. Symptoms been going on for the last couple months since Covid 19 and gradually worsening. Patient presented to [facility] emergency center for evaluation. She was found to be afebrile, heart rate 79, blood pressure 115/69, pulse ox 98% on room air. EKG was a sinus rhythm with PVCs, lateral T-wave inversion. WBC 14, hemoglobin 12.9, platelet count 188. Sodium 131, potassium 2.4, chloride 87, CO2 33, BUN 52 and creatinine 2. Blood sugar 123. Magnesium 1.2. Total bilirubin 1.6, AST 212, ALT 243. Troponins 0.132, 0.088, 0.089. Albumin 3.2. TSH 6.31, free T4 elevated at 2.38, free T3 1 0.9. Urinalysis cloudy, blood small, 1+, leukoesterase small, bacteria many. Coronavirus PCR detected. Patient admitted to the cardiac stepdown unit, potassium and magnesium replacements, consult with cardiology for elevated troponins and neurology for mental status changes. Speech therapy consult added. REVIEW OF SYSTEMS Constitutional: No fever, no chills, no night sweats. Reported weight change. Reported weakness, Reported fatigue or lethargy. No daytime sleepiness. EENT: No headache. No blurred vision or double vision, no loss of vision. No loss of Hearing, no ringing in the ears, no dizziness. No nasal drainage or congestion. No epistaxis. No sore throat. Lungs: No shortness of breath, cough, no sputum production. No wheezing. Cardiovascular: No chest pain, no lower extremity edema. No palpitations. No paroxysmal nocturnal dyspnea. No orthopnea. No lightheadedness or dizziness. No syncopal episodes. Abdominal: No abdominal pain. No nausea, vomiting. No diarrhea. No constipation. No bloody or tarry stools. Reported loss of appetite. Genitourinary: No dysuria, increased frequency, urgency. No urinary retention. Musculoskeletal: No myalgias. No muscle weakness, no gait dysfunction, no frequent falls. No back pain. No neck pain. Integumentary: No wounds, no lesions. No rash or pruritus. No unusual bruising. No change in hair or nails. Neurologic: No aphasia. No facial droop. Reported change in mentation. No head injury. No headache. No paralysis. No paresthesia. Psychiatric: No depression. No anxiety. No mood swings. Endocrine: No abnormal blood sugars. No weight change. No excessive sweating or thirst. No cold intolerance. SOCIAL HISTORY Patient is a nonsmoker, no alcohol use, no marijuana or illicit drug use. Patient is FAMILY HISTORY Both parents are from unknown causes. Patient has 4 siblings. She does not know her sibling's medical history. Patient has a total of 7 children. PHYSICAL EXAMINATION Gen: This is an 85-year-old female. Patient is resting in bed and appears to be comfortable and in no acute distress. HEENT: Head is atraumatic, normocephalic. Pupils equal, round. Sclerae is anicteric. NECK: Supple. No JVD. No lymphadenopathy. No thyromegaly. LUNGS: Clear to auscultation. No wheezes or rhonchi. No intercostal ret ractions. HEART: Regular rate and rhythm. Systolic murmur at the right sternal border murmur. ABDOMEN: Soft. Bowel sounds are present. No masses. No tenderness. EXTREMITIES: No pedal edema. No calf tenderness. NEUROLOGICAL: Patient is awake, alert and oriented to person and place. Cranial nerves 2 through 12 are grossly intact. ASSESSMENT AND PLAN 1. Acute kidney injury, ATN. Renal ultrasound ordered, monitor renal function. 2. Severe hypokalemia and hypomagnesemia secondary to dehydration. Continue replacement and recheck lab values. 3. Metabolic encephalopathy most likely secondary to acute kidney injury and underlying dementia. Consult with neurology. 4. Elevated troponins without complaints of chest pain. Cardiology consult next field elevated liver function tests of unclear etiology. Abdominal ultrasound added, acute hepatitis panel. 5. Hypothyroidism with elevated TSH and free T4. Levothyroxine decreased to 50 g daily. 6. Hypertension. Continue lisinopril 20 mg daily, amlodipine 5 mg daily 7. Hyperlipidemia. Continue atorvastatin 20 mg at bedtime 8. Gastroesophageal reflux disease. Continue Protonix. 9. Recurrent depression and generalized anxiety disorder. Continue Prozac 20 no grams daily, Xanax 0.25 mg at bedtime. 10. Mild intermittent asthma. Continue Singulair 10 mg at bedtime. 11. Dementia. Continue Aricept 5 mg at bedtime. 12. COVID-19 testing negative. Patient has been hospitalized during a pandemic. Patient will be admitted to the hospital for a minimum of 2 night stay. DISCHARGE PLAN Return home with daughter and grandchildren. No home care planned. Impression and plan of care have been directed as dictated by the signing physician. Nita De La Torre nurse practitioner acting as scribe for signing physician. Past Medical History Past Medical History: Cancer, COPD, Hyperlipidemia, Hypertension, Thyroid Disorder Additional Past Medical History / Comment(s): hx skin cancer, possible tia, lose of vision lt eye, experiences shaking in hands, head and chin History of Any Multi-Drug Resistant Organisms: None Reported Past Surgical History: Cholecystectomy, Hernia Repair, Tubal Ligation Additional Past Surgical History / Comment(s): THYROIDECTOMY, varicose vein stripping Past Anesthesia/Blood Transfusion Reactions: No Reported Reaction Past Psychological History: Anxiety Smoking Status: Never smoker Past Alcohol Use History: None Reported Past Drug Use History: None Reported - Past Family History Mother Family Medical History: Diabetes Mellitus Father Family Medical History: Pneumonia Sister(s) Family Medical History: Cancer Medications and Allergies Home Medications Medication Instructions Recorded Confirmed Type ALPRAZolam [Xanax] 0.25 mg PO DAILY PRN 01/14/14 08/18/21 History FLUoxetine HCL [Fluoxetine HCl] 20 mg PO DAILY 01/14/14 08/18/21 History amLODIPine BESYLATE/BENAZEPRIL 1 cap PO DAILY 01/14/14 08/18/21 History [Amlodipine-Benazepril 5-20 mg] Atorvastatin [Lipitor] 20 mg PO HS 03/30/16 08/18/21 History Aspirin EC [Ecotrin Low Dose] 81 mg PO DAILY 09/13/16 08/18/21 History Montelukast [Singulair] 10 mg PO HS 03/21/19 08/18/21 History ALPRAZolam [Xanax] 0.25 mg PO HS 08/18/21 08/18/21 History Donepezil [Aricept] 5 mg PO HS 08/18/21 08/18/21 History Levothyroxine Sodium [Synthroid] 75 mcg PO DAILY 08/18/21 08/18/21 History Omeprazole 20 mg PO DAILY 08/18/21 08/18/21 History Allergies Allergy/AdvReac Type Severity Reaction Status Date / Time No Known Allergies Allergy Verified 08/18/21 12:18 Physical Exam Vitals: Vital Signs Temp Pulse Resp BP Pulse Ox 08/19/21 05:00 98.1 F 96 17 121/80 100 08/19/21 01:15 81 22 120/78 100 08/19/21 00:00 98.4 F 86 17 124/70 98 08/18/21 23:00 83 18 121/87 94 L 08/18/21 21:00 98.9 F 88 16 98/63 96 08/18/21 18:49 98.0 F 72 18 129/78 99 08/18/21 17:05 78 18 107/64 97 08/18/21 12:17 98.2 F 79 18 115/69 98 Intake and Output 08/18/21 08/19/21 08/19/21 22:59 06:59 14:59 Intake Total 390 Balance 390 Intake: Intake, IV Titration 150 Amount 0.9% NaCl with KCl 20 Meq 150 /l 1,000 ml @ 75 mls/hr IV .[id number] STA Rx#: [id number] Oral 240 Other: Weight 68.039 kg Results CBC & Chem 7: 08/19/21 07:21 08/19/21 07:21 Labs: Abnormal Lab Results - Last 24 Hours (Table) 08/18/21 08/18/21 08/18/21 Range/Units 12:30 12:30 12:30 WBC 14.0 H (3.8-10.6) k/uL Neutrophils # 12.3 H (1.3-7.7) k/uL Lymphocytes # 0.7 L (1.0-4.8) k/uL Sodium 131 L (137-145) mmol/L Potassium 2.4 L* (3.5-5.1) mmol/L Chloride 87 L (98-107) mmol/L Carbon Dioxide 33 H (22-30) mmol/L BUN 52 H (7-17) mg/dL Creatinine 2.00 H (0.52-1.04) mg/dL Glucose 123 H (74-99) mg/dL POC Glucose (mg/dL) (75-99) mg/dL Calcium 8.0 L (8.4-10.2) mg/dL Magnesium 1.2 L (1.6-2.3) mg/dL Total Bilirubin 1.6 H (0.2-1.3) mg/dL AST 212 H (14-36) U/L ALT 243 H (4-34) U/L Troponin I 0.132 H* (0.000-0.034) ng/mL Total Protein 5.8 L (6.3-8.2) g/dL Albumin 3.2 L (3.5-5.0) g/dL TSH 6.310 H (0.465-4.680) mIU/L Free T4 2.38 H (0.78-2.19) ng/dL Free T3 pg/mL 1.9 L (2.8-5.3) pg/ml Urine Appearance (Clear) Urine Protein (Negative) Urine Ketones (Negative) Urine Blood (Negative) Urine Bilirubin (Negative) Ur Leukocyte Esterase (Negative) Urine Bacteria (None) /hpf Urine Mucus (None) /hpf Urine Yeast (Budding) (None) /hpf Coronavirus (PCR) (Not Detectd) 08/18/21 08/18/21 08/18/21 Range/Units 12:32 15:34 21:07 WBC (3.8-10.6) k/uL Neutrophils # (1.3-7.7) k/uL Lymphocytes # (1.0-4.8) k/uL Sodium (137-145) mmol/L Potassium (3.5-5.1) mmol/L Chloride (98-107) mmol/L Carbon Dioxide (22-30) mmol/L BUN (7-17) mg/dL Creatinine (0.52-1.04) mg/dL Glucose (74-99) mg/dL POC Glucose (mg/dL) 116 H (75-99) mg/dL Calcium (8.4-10.2) mg/dL Magnesium (1.6-2.3) mg/dL Total Bilirubin (0.2-1.3) mg/dL AST (14-36) U/L ALT (4-34) U/L Troponin I (0.000-0.034) ng/mL Total Protein (6.3-8.2) g/dL Albumin (3.5-5.0) g/dL TSH (0.465-4.680) mIU/L Free T4 (0.78-2.19) ng/dL Free T3 pg/mL (2.8-5.3) pg/ml Urine Appearance Cloudy H (Clear) Urine Protein 1+ H (Negative) Urine Ketones Trace H (Negative) Urine Blood Small H (Negative) Urine Bilirubin 1+ H (Negative) Ur Leukocyte Esterase Small H (Negative) Urine Bacteria Many H (None) /hpf Urine Mucus Rare H (None) /hpf Urine Yeast (Budding) Few H (None) /hpf Coronavirus (PCR) Detected A (Not Detectd) 08/18/21 08/19/21 08/19/21 Range/Units 21:55 00:55 07:21 WBC (3.8-10.6) k/uL Neutrophils # (1.3-7.7) k/uL Lymphocytes # (1.0-4.8) k/uL Sodium 134 L (137-145) mmol/L Potassium 2.9 L (3.5-5.1) mmol/L Chloride (98-107) mmol/L Carbon Dioxide (22-30) mmol/L BUN 40 H (7-17) mg/dL Creatinine 1.37 H (0.52-1.04) mg/dL Glucose (74-99) mg/dL POC Glucose (mg/dL) (75-99) mg/dL Calcium 7.6 L (8.4-10.2) mg/dL Magnesium (1.6-2.3) mg/dL Total Bilirubin (0.2-1.3) mg/dL AST (14-36) U/L ALT (4-34) U/L Troponin I 0.088 H* 0.089 H* (0.000-0.034) ng/mL Total Protein (6.3-8.2) g/dL Albumin (3.5-5.0) g/dL TSH (0.465-4.680) mIU/L Free T4 (0.78-2.19) ng/dL Free T3 pg/mL (2.8-5.3) pg/ml Urine Appearance (Clear) Urine Protein (Negative) Urine Ketones (Negative) Urine Blood (Negative) Urine Bilirubin (Negative) Ur Leukocyte Esterase (Negative) Urine Bacteria (None) /hpf Urine Mucus (None) /hpf Urine Yeast (Budding) (None) /hpf Coronavirus (PCR) (Not Detectd) Thrombosis Risk Factor Assmnt - Choose All That Apply Any of the Below Risk Factors Present?: Yes Each Factor Represents 1 point: Medical pt on bed rest, Serious lung disease in cl. pneumonia (< 1month) Other Risk Factors: Yes Each Risk Factor Represents 3 Points: Age 75 years or older Thrombosis Risk Factor Assessment Total Risk Factor Score: 5 Thrombosis Risk Factor Assessment Level: High Risk
--- NOTE | 2021-08-19 11:55 | P.CRDCN ---
History of Present Illness History of present illness: HISTORY OF PRESENTING ILLNESS This is a pleasant 85-year-old female past medical history significant for hypertension, dementia, dyslipidemia, GERD, hypothyroidism, anxiety, depression, asthma. She does not follow a footwear stitcher.We have been asked to see in consultation for elevated troponin. Patient presents to the emergency department family concerning for generalized weakness, decreased appetite, not eating or drinking, weight loss, increased confusion and inability to ambulate. Patient was diagnosed with COVID-29 June and over the past couple months her symptoms gradually been worsening. Patient denies any chest pain or shortness of breath at bedside. She denies any complaints. She is a poor historian, unable to give accurate medical history at this time. On admission, troponins were drawn that revealed 0.13, 0.08, 0.08. Patient was also found to have severe hypokalemia, hypomagnesium, dehydrated, acute kidney injury, and elevated liver enzymes. EKG difficult to obtain due to patient having bilateral shaking of the arms. DIAGNOSTICS -EKG reveals sinus rhythm, PVC, HR 84, T wave inversion in inferior lateral leads. -Telemetry tracings indicate sinus mechanism, heart rate 70s90s with PACs noted -Chest xray no active cardiopulmonary disease, hyperinflation compatible with COPD, large fixed hiatal hernia, no overt heart failure. -Brain MRI revealed no evidence of cranial mass or acute/subacute infarct or evidence of intracranial hemorrhage. Nonspecific white matter changes likely secondary to small vessel ischemia. -Laboratory reviewed, WBC 14, repeat 10.2, hemoglobin 11.4, platelets 162, sodium 134, potassium 2.9, BUN 40, serum creatinine 1.3, magnesium 1.2, total bilirubin 1.6, AST 212, ALT 243, albumin 3.2, TSH 6.3, free T4 2 0.3, free T3 1 0.9, UA positive UTI -Current home medications amlodipine/benazepril 5/20 daily, Aricept, atorva statin 20 mg nightly, aspirin 81 mg daily, when necessary Xanax REVIEW OF SYSTEMS At the time of my exam: CONSTITUTIONAL: Denies fever or chills. CARDIOVASCULAR: Denies chest pain, shortness of breath, orthopnea, PND or palpitations. RESPIRATORY: Denies cough. GASTROINTESTINAL: Denies abdominal pain, diarrhea, constipation, nausea or vomiting. MUSCULOSKELETAL: Denies myalgias. NEUROLOGIC: Denies numbness, tingling, headacbe or weakness. ENDOCRINE: Denies fatigue, weight change, polydipsia or polyurina. GENITOURINARY: Denies burning, hematuria or urgency with micturation. HEMATOLOGIC: Denies history of anemia or bleeding. PHYSICAL EXAMINATION Blood pressure 151/69, heart rate 95, afebrile, oxygen saturations 97% on 2 L nasal cannula CONSTITUTIONAL: No apparent distress. HEENT: Head is normocephalic. Neck Supple. No JVD. No carotid bruit. CHEST EXAMINATION: Lungs are diminished in the bases to auscultation. HEART EXAMINATION: Regular rate and rhythm. S1, S2 heard. ABDOMEN: Soft, nontender. EXTREMITIES: no lower extremity edema and no calf tenderness. NEUROLOGIC EXAMINATION: Patient is awake, alert oriented to person ASSESSMENT Acute Kidney Injury Elevated LFTs Hypokalemia Hypomagnesium Dehydration Covid-19 Infection Elevated troponin, likely related to above, does not appear to be consistent with acute coronary syndrome History of hypertension Dyslipidemia History of dementia PLAN At this time we recommend medical management of elevated troponin. Elevated troponin likely related to acute kidney injury and acute transaminitis. Patient's kidney function improved with IV fluids. Replace electrolytes per protocol. We will Obtain 2D echocardiogram and doppler study to assess cardiac structure and function. Continue aspirin, statin, amlodipine Further recommendations based on clinical course Nurse practitioner note has been reviewed by physician. Signing provider agrees with the documented findings, assessment, and plan of care. Past Medical History Past Medical History: Cancer, COPD, Hyperlipidemia, Hypertension, Thyroid Disorder Additional Past Medical History / Comment(s): hx skin cancer, possible tia, lose of vision lt eye, experiences shaking in hands, head and chin History of Any Multi-Drug Resistant Organisms: None Reported Past Surgical History: Cholecystectomy, Hernia Repair, Tubal Ligation Additional Past Surgical History / Comment(s): THYROIDECTOMY, varicose vein stripping Past Anesthesia/Blood Transfusion Reactions: No Reported Reaction Past Psychological History: Anxiety Smoking Status: Never smoker Past Alcohol Use History: None Reported Past Drug Use History: None Reported - Past Family History Mother Family Medical History: Diabetes Mellitus Father Family Medical History: Pneumonia Sister(s) Family Medical History: Cancer Medications and Allergies Home Medications Medication Instructions Recorded Confirmed Type ALPRAZolam [Xanax] 0.25 mg PO DAILY PRN 01/14/14 08/18/21 History FLUoxetine HCL [Fluoxetine HCl] 20 mg PO DAILY 01/14/14 08/18/21 History amLODIPine BESYLATE/BENAZEPRIL 1 cap PO DAILY 01/14/14 08/18/21 History [Amlodipine-Benazepril 5-20 mg] Atorvastatin [Lipitor] 20 mg PO HS 03/30/16 08/18/21 History Aspirin EC [Ecotrin Low Dose] 81 mg PO DAILY 09/13/16 08/18/21 History Montelukast [Singulair] 10 mg PO HS 03/21/19 08/18/21 History ALPRAZolam [Xanax] 0.25 mg PO HS 08/18/21 08/18/21 History Donepezil [Aricept] 5 mg PO HS 08/18/21 08/18/21 History Levothyroxine Sodium [Synthroid] 75 mcg PO DAILY 08/18/21 08/18/21 History Omeprazole 20 mg PO DAILY 08/18/21 08/18/21 History Allergies Allergy/AdvReac Type Severity Reaction Status Date / Time No Known Allergies Allergy Verified 08/18/21 12:18 Physical Exam Vitals: Vital Signs Temp Pulse Resp BP Pulse Ox 08/19/21 05:00 98.1 F 96 17 121/80 100 08/19/21 01:15 81 22 120/78 100 08/19/21 00:00 98.4 F 86 17 124/70 98 08/18/21 23:00 83 18 121/87 94 L 08/18/21 21:00 98.9 F 88 16 98/63 96 08/18/21 18:49 98.0 F 72 18 129/78 99 08/18/21 17:05 78 18 107/64 97 08/18/21 12:17 98.2 F 79 18 115/69 98 Intake and Output 08/18/21 08/19/21 08/19/21 22:59 06:59 14:59 Intake Total 390 Balance 390 Intake: Intake, IV Titration 150 Amount 0.9% NaCl with KCl 20 Meq 150 /l 1,000 ml @ 75 mls/hr IV .[id number] STA Rx#: [id number] Oral 240 Other: Weight 68.039 kg Results 08/19/21 07:21 08/19/21 07:21 Cardiac Enzymes 08/18/21 08/18/21 08/18/21 Range/Units 12:30 12:30 21:55 AST 212 H (14-36) U/L Troponin I 0.132 H* 0.088 H* (0.000-0.034) ng/mL 08/19/21 Range/Units 00:55 AST (14-36) U/L Troponin I 0.089 H* (0.000-0.034) ng/mL Coagulation 08/18/21 Range/Units 12:30 PT 10.4 (9.0-12.0) sec APTT 22.3 (22.0-30.0) sec CBC 08/18/21 08/19/21 Range/Units 12:30 07:21 WBC 14.0 H 10.2 (3.8-10.6) k/uL RBC 4.08 3.67 L (3.80-5.40) m/uL Hgb 12.9 11.4 (11.4-16.0) gm/dL Hct 38.4 36.3 (34.0-46.0) % Plt Count 188 162 (150-450) k/uL Comprehensive Metabolic Panel 08/18/21 08/19/21 Range/Units 12:30 07:21 Sodium 131 L 134 L (137-145) mmol/L Potassium 2.4 L* 2.9 L (3.5-5.1) mmol/L Chloride 87 L 100 (98-107) mmol/L Carbon Dioxide 33 H 28 (22-30) mmol/L BUN 52 H 40 H (7-17) mg/dL Creatinine 2.00 H 1.37 H (0.52-1.04) mg/dL Glucose 123 H 84 (74-99) mg/dL Calcium 8.0 L 7.6 L (8.4-10.2) mg/dL AST 212 H (14-36) U/L ALT 243 H (4-34) U/L Alkaline Phosphatase 119 (38-126) U/L Total Protein 5.8 L (6.3-8.2) g/dL Albumin 3.2 L (3.5-5.0) g/dL Current Medications Generic Name Dose Route Start Last Admin Trade Name Freq PRN Reason Stop Dose Admin Acetaminophen 650 mg 08/18/21 21:16 Acetaminophen Tab 325 Mg Tab PO Q6HR PRN Mild Pain or Fever > 100.5 Alprazolam 0.25 mg 08/19/21 21:00 Alprazolam 0.25 Mg Tab PO HS SRIKANTH Alprazolam 0.25 mg 08/19/21 02:44 Alprazolam 0.25 Mg Tab PO DAILY PRN Anxiety Amlodipine Besylate 5 mg 08/19/21 09:00 Amlodipine 5 Mg Tab PO DAILY [facility] Aspirin 81 mg 08/19/21 09:00 Aspirin 81 Mg PO DAILY [facility] Atorvastatin Calcium 20 mg 08/19/21 21:00 Atorvastatin 20 Mg Tab PO HS [facility] Donepezil HCl 5 mg 08/19/21 21:00 Donepezil 5 Mg Tab PO HS [facility] Fluoxetine HCl 20 mg 08/19/21 09:00 Fluoxetine Hcl 20 Mg Cap PO DAILY [facility] Potassium Chloride 20 meq/ IV 100 mls @ 50 mls/hr 08/19/21 10:00 Solution IVPB 08/19/21 15:59 Q2H [facility] Protocol Levothyroxine Sodium 50 mcg 08/19/21 09:00 Levothyroxine 50 [place] [address] [facility] Lisinopril 20 mg 08/19/21 09:00 Lisinopril 20 Mg Tab PO DAILY [facility] Miscellaneous Information 1 each 08/19/21 08:45 Potassium Replacement Protocol 1 Each Misc MISCELLANE DAILY PRN Per Protocol Protocol Montelukast Sodium 10 mg 08/19/21 21:00 Montelukast 10 Mg Tab PO HS [facility] Naloxone HCl 0.2 mg 08/18/21 21:16 Naloxone 0.4 Mg/Ml 1 Ml Vial IV Q2M PRN Opioid Reversal Pantoprazole Sodium 40 mg 08/19/21 07:30 08/19/21 06:05 Pantoprazole 40 Mg Tablet PO 40 mg [id number] [facility] Administration Intake and Output 08/18/21 08/19/21 08/19/21 22:59 06:59 14:59 Intake Total 390 Balance 390 Intake: Intake, IV Titration 150 Amount 0.9% NaCl with KCl 20 Meq 150 /l 1,000 ml @ 75 mls/hr IV .[id number] STA Rx#: [id number] Oral 240 Other: Weight 68.039 kg 08/19/21 07:21 08/19/21 07:21
[2021-08-19 11:58] LABS: Glucose,Whole Blood 97 mg/dL (75-99)
--- NOTE | 2021-08-19 12:00 | ECHOF ---
Referral Reason:elevated troponin MEASUREMENTS -------- HEIGHT: 167.6 cm WEIGHT: 68.0 kg BP: 121/80 RVIDd: 3.1 cm (< 3.3) IVSd: 1.1 cm (0.6 - 1.1) LVIDd: 3.2 cm (3.9 - 5.3) LVPWd: 1.0 cm (0.6 - 1.1) IVSs: 1.3 cm LVIDs: 1.7 cm LVPWs: 1.5 cm LAESV Index (A-L): 23.40 ml/m AV maxP.89 mmHg AV meanP.89 mmHg RAP: 5.00 mmHg RVSP: 47.57 mmHg FINDINGS -------- Sinus rhythm. This was a technically adequate study. The left ventricular size is normal. There is borderline concentric left ventricular hypertrophy. Overall left ventricular systolic function is low-normal with, an EF between 50 - 55 %. There is mild aortic stenosis present. The maximum velocity across the aortic valve is 2.49m/s. P eak/mean gradient across the Aortic Valve is 24.89mmHg / 16.89mmHg. Moderate to severe tricuspid regurgitation present. There is moderate pulmonary hypertension. The right ventricular systolic pressure, as measured by Doppler, is 47.57mmHg. There is no pericardial effusion. CONCLUSIONS -------- 1. The left ventricular size is normal. 2. There is borderline concentric left ventricular hypertrophy. 3. Overall left ventricular systolic function is low-normal with, an EF between 50 - 55 %. 4. There is mild aortic stenosis present. 5. The maximum velocity across the aortic valve is 2.49m/s. 6. Peak/mean gradient across the Aortic Valve is 24.89mmHg / 16.89mmHg. 7. Moderate to severe tricuspid regurgitation present. 8. There is moderate pulmonary hypertension. 9. The right ventricular systolic pressure, as measured by Doppler, is 47.57mmHg. [employer] SUPERVISOR: Enriqueta Person [facility]
[2021-08-19] MEDS: LEVOTHYROXINE 50 MCG TAB PO SCH (12:47)
[2021-08-19 16:39] LABS: Glucose,Whole Blood 83 mg/dL (75-99)
--- NOTE | 2021-08-19 17:00 | P.CNNES ---
History of Present Illness Consult date: 08/19/21 Requesting physician: Nita De La Torre Reason for Consult: mental status change, worsening dementia/parkinson History of Present Illness: Patient is a 85-year-old female who came to the hospital by ambulance yesterday at 11:33 AM. As per EMS flow sheet, when they arrived, found patient in her home bedbound recovering from Covid since 07/02/2021. Patient has not been any better since suffering from ravi virus and family has been taking care of her. They noted decline in her health over the last few days. Unable to eat or drink arm and no appetite. Patient was noted to be lethargic, alert to verbal, confused. Patient was carried out of the home by 4 persons in a stretcher. Patient's vitals at the scene was blood pressure 147/73, pulse of 80, respiration 14 saturation 86%. Blood sugar 88, temperature 97.2. Patient's vitals on arrival blood pressure was 115/69, temperature 98.2. Saturation 98% on room air. Chest x-ray revealed no evidence for acute pulmonary disease. Computed tomography scan of the head reported as within the high right frontal lobe, there is sulcal effacement noted as well as vague area of increased attenuation seen which may reflect underlying petechial hemorrhage with tiny subarachnoid hemorrhage difficult to exclude. Correlate with MRI. MRI of the brain was performed yesterday at 7:34 PM, which was reported as no evidence of intracranial mass or acute/subacute infarct or evidence for intracranial hemorrhage. Findings on the CT are felt to represent cortical calcification. Nonspecific white matter changes, likely secondary to small vessel ischemic disease. I personally reviewed computed tomography scan of the head as well as MRI of the brain. I feel it is evidence of subarachnoid hemorrhage, which is also noticeable on MRI of the brain. Do not believe it represents cortical calcification as reported by the radiologist. Patient's computed tomography sca n of the head previously from 12/22/2016, did not reveal any such hyperdensity, therefore likely not calcification. EKG shows sinus rhythm with premature supraventricular complexes and occasional premature ventricular complexes. Anterior infarct, age undetermined. 2-D echo revealed normal left-ventricular size. Borderline concentric LVH. Left ventricular systolic function is low normal with EF between 50-55%. Mild aortic stenosis. Moderate to severe tricuspid regurgitation. Moderate pulm onary hypertension. Patient's blood tests shows WBC 14.0 hemoglobin 12.9, platelets 188. PT/PTT normal, sodium 131 potassium 2.4, and BUN 52, creatinine 2.00. AST is elevated troponin 12, AST 243. Troponin is elevated. TSH is elevated 6.3 and free T4 is also elevated at 2.38. Free T3 is low 1.9. UA shows small amount of leukocyte esterase, many bacteria. Ravi virus PCR positive. I asked the patient about any history of fall. Patient states that she did fall 5-6 days ago. She wasn't watching which she was walking, so she fell about 4 or 5 days ago. She hit her head and hurt all over. Patient states that she lives by herself. She claims she has 7 children. Patient is extremely hard of hearing. Patient's home medications include fluoxetine 20 mg, Xanax 0.25 mg daily when necessary, amlodipine/been as epidural. Lipitor 20 mg, aspirin 81 mg, Singulair, donepezil 5 mg, levothyroxine and omeprazole. Review of Systems Admits to having slight headache. Denies any problem with the vision. Patient complains of soreness all over. Rest of the review of systems cannot be assessed because of patient's extreme hard of hearing. Also difficulty with asking questions because of her covid status and use of double masks and the shield. Past Medical History Past Medical History: Cancer, COPD, Hyperlipidemia, Hypertension, Thyroid Disorder Additional Past Medical History / Comment(s): hx skin cancer, possible tia, lose of vision lt eye, experiences shaking in hands, head and chin History of Any Multi-Drug Resistant Organisms: None Reported Past Surgical History: Cholecystectomy, Hernia Repair, Tubal Ligation Additional Past Surgical History / Comment(s): THYROIDECTOMY, varicose vein stripping Past Anesthesia/Blood Transfusion Reactions: No Reported Reaction Past Psychological History: Anxiety Smoking Status: Never smoker Past Alcohol Use History: None Reported Past Drug Use History: None Reported - Past Family History Mother Family Medical History: Diabetes Mellitus Father Family Medical History: Pneumonia Sister(s) Family Medical History: Cancer Medications and Allergies Home Medications Medication Instructions Recorded Confirmed Type ALPRAZolam [Xanax] 0.25 mg PO DAILY PRN 01/14/14 08/18/21 History FLUoxetine HCL [Fluoxetine HCl] 20 mg PO DAILY 01/14/14 08/18/21 History amLODIPine BESYLATE/BENAZEPRIL 1 cap PO DAILY 01/14/14 08/18/21 History [Amlodipine-Benazepril 5-20 mg] Atorvastatin [Lipitor] 20 mg PO HS 03/30/16 08/18/21 History Aspirin EC [Ecotrin Low Dose] 81 mg PO DAILY 09/13/16 08/18/21 History Montelukast [Singulair] 10 mg PO HS 03/21/19 08/18/21 History ALPRAZolam [Xanax] 0.25 mg PO HS 08/18/21 08/18/21 History Donepezil [Aricept] 5 mg PO HS 08/18/21 08/18/21 History Levothyroxine Sodium [Synthroid] 75 mcg PO DAILY 08/18/21 08/18/21 History Omeprazole 20 mg PO DAILY 08/18/21 08/18/21 History Allergies Allergy/AdvReac Type Severity Reaction Status Date / Time No Known Allergies Allergy Verified 08/18/21 12:18 Physical Examination - Vital Signs Vital Signs: Vital Signs Temp Pulse Pulse Resp BP BP Pulse Ox 08/19/21 11:17 97.3 F L 95 22 151/69 90 L 08/19/21 10:39 97.8 F 78 21 164/62 08/19/21 10:04 97.8 F 79 18 163/82 97 08/19/21 05:00 98.1 F 96 17 121/80 100 08/19/21 01:15 81 22 120/78 100 08/19/21 00:00 98.4 F 86 17 124/70 98 08/18/21 23:00 83 18 121/87 94 L 08/18/21 21:00 98.9 F 88 16 98/63 96 08/18/21 18:49 98.0 F 72 18 129/78 99 08/18/21 17:05 78 18 107/64 97 Intake and Output 08/18/21 08/19/21 08/19/21 22:59 06:59 14:59 Intake Total 390 1500 Output Total 3000 Balance 390 -1500 Intake: Intake, IV Titration 150 1200 Amount 0.9% NaCl with KCl 20 Meq 150 900 /l 1,000 ml @ 75 mls/hr IV .[id number] [facility] Rx#: [id number] Potassium Chloride 20 meq 300 In Water For Injection 1 100ml.bag @ 50 mls/hr IVPB Q2H [facility] Rx#: [id number] Oral 240 Hemodialysis 300 Output: Hemodialysis 3000 Other: Voiding Method Diaper Weight 68.039 kg Patient is an elderly female, who is in no acute distress. Patient is pleasant. Patient is alert awake. Patient knows her age 86, height date of 1935 and that she is in [place] in [facility]. She states that she is in "presence". A business building. She knows the last president was Reg, but could not tell the current one. Speech and language functions are normal. Patient is extremely hard of hearing. Attention, concentration and fund of knowledge is limited. Detail cognitive function testing deferred. On cranial examination, pupils are round and reacting to light, visual calvert are full on confrontation, extraocular muscles are intact with no nystagmus. Face is symmetric, tongue protrudes to the midline. Palatal elevation and sensation normal, hearing is severely decreased and shoulder shrug normal, facial sensation normal. On muscle strength testing, there is no pronator drift. Patient appears generalized weak about 4 in the upper and lower limbs. Patient appears not to give the best effort also. Deep tendon reflexes are 1+ and plantars downgoing. Sensory to touch is equal with no neglect. Cerebellar function showed no ataxia for [id number] testing. Tone is mildly to moderately increased bilaterally and bulk of muscles normal. Patient has resting tremors noticed of her hands and feet. Also has some chin tremors. She does appear bradykinetic. Gait not checked. On general examination, there is no carotid bruit or murmur, S1-S2 audible. Abdomen is soft nontender. No organomegaly. Bowel sounds present. Chest is clear. Peripheral pulses are present. No edema. Results - Laboratory Findings CBC and BMP: 08/19/21 07:21 08/19/21 07:21 Abnormal Lab Findings: Abnormal Labs 08/18/21 08/18/21 08/18/21 12:30 12:30 12:30 WBC 14.0 H RBC Neutrophils # 12.3 H Lymphocytes # 0.7 L Sodium 131 L Potassium 2.4 L* Chloride 87 L Carbon Dioxide 33 H BUN 52 H Creatinine 2.00 H Glucose 123 H POC Glucose (mg/dL) Calcium 8.0 L Magnesium 1.2 L Total Bilirubin 1.6 H AST 212 H ALT 243 H Troponin I 0.132 H* Total Protein 5.8 L Albumin 3.2 L TSH 6.310 H Free T4 2.38 H Free T3 pg/mL 1.9 L Urine Appearance Urine Protein Urine Ketones Urine Blood Urine Bilirubin Ur Leukocyte Esterase Urine Bacteria Urine Mucus Urine Yeast (Budding) Coronavirus (PCR) 08/18/21 08/18/21 08/18/21 12:32 15:34 21:07 WBC RBC Neutrophils # Lymphocytes # Sodium Potassium Chloride Carbon Dioxide BUN Creatinine Glucose POC Glucose (mg/dL) 116 H Calcium Magnesium Total Bilirubin AST ALT Troponin I Total Protein Albumin TSH Free T4 Free T3 pg/mL Urine Appearance Cloudy H Urine Protein 1+ H Urine Ketones Trace H Urine Blood Small H Urine Bilirubin 1+ H Ur Leukocyte Esterase Small H Urine Bacteria Many H Urine Mucus Rare H Urine Yeast (Budding) Few H Coronavirus (PCR) Detected A 08/18/21 08/19/21 08/19/21 21:55 00:55 07:21 WBC RBC 3.67 L Neutrophils # 8.8 H Lymphocytes # 0.8 L Sodium Potassium Chloride Carbon Dioxide BUN Creatinine Glucose POC Glucose (mg/dL) Calcium Magnesium Total Bilirubin AST ALT Troponin I 0.088 H* 0.089 H* Total Protein Albumin TSH Free T4 Free T3 pg/mL Urine Appearance Urine Protein Urine Ketones Urine Blood Urine Bilirubin Ur Leukocyte Esterase Urine Bacteria Urine Mucus Urine Yeast (Budding) Coronavirus (PCR) 08/19/21 07:21 WBC RBC Neutrophils # Lymphocytes # Sodium 134 L Potassium 2.9 L Chloride Carbon Dioxide BUN 40 H Creatinine 1.37 H Glucose POC Glucose (mg/dL) Calcium 7.6 L Magnesium Total Bilirubin AST ALT Troponin I Total Protein Albumin TSH Free T4 Free T3 pg/mL Urine Appearance Urine Protein Urine Ketones Urine Blood Urine Bilirubin Ur Leukocyte Esterase Urine Bacteria Urine Mucus Urine Yeast (Budding) Coronavirus (PCR) Assessment and Plan Assessment: * Altered mental status, likely due to toxic metabolic encephalopathy. Reasons multifactorial as below. * Recent acute Covid-19 infection, still positive for ravi virus. * Hyponatremia, hypokalemia * Acute kidney injury, likely from dehydration, improving. * Elevated cardiac enzymes * Elevated liver enzymes * Abnormal thyroid functions * Abnormal computed tomography scan of head, with evidence of a small subarachnoid hemorrhage over the right frontal convexity. * Tremors, likely metabolic due to all reasons mentioned above. Plan: * I spoke to patient's daughter Darline on the phone. She states that patient was diagnosed with Covid-19 a month ago, but she has not got over it, in fact has been getting worse gradually. She would not get out of bed, would not eat, difficulty getting her medications, particularly in the last few days. She couldn't talk. Patient's daughter also mentioned that she did fall on 08/11/2021 when she was sitting on the edge of the couch, and fell over to her left, hitting her head on the hard floor. Patient's daughter was far, not able to catch her. Patient also has a diagnosis of dementia. Patient's daughter states that there is no diagnosis of Parkinson's disease at this time. Patient does shake, but patient's mother also used to shake. * It appears patient currently has toxic metabolic encephalopathy from all the reasons mentioned above. On top of that, patient also suffered from a fall with subarachnoid hemorrhage. Hopefully her encephalopathy will improve over time. Patient's renal functions are improving. We will continue to follow. * We will check B12, folate. * Management of abnormal thyroid functions and other medical/metabolic conditions as per IM. * At this time Parkinson's disease cannot be diagnosed because of multiple medical/metabolic dysfunctions including abnormal thyroid functions, which all can contribute to the tremors. Patient's daughter was recommended to have patient follow-up with a neurologist locally, once all metabolic/medical conditions have come under control, and if patient continues to have the tremors and balance issues. * Neurology will follow.
[2021-08-19 19:09] LABS: Magnesium 1.7 mg/dL (1.6-2.3)
[2021-08-19 19:56] LABS: Glucose,Whole Blood 98 mg/dL (75-99)
[2021-08-19] MEDS: MONTELUKAST 10 MG TAB PO SCH (22:30)
[2021-08-19] MEDS: ALPRAZolam 0.25 MG TAB PO SCH (22:30)
[2021-08-19] MEDS: ATORVASTATIN 20 MG TAB PO SCH (22:31)
[2021-08-19] MEDS: DONEPEZIL 5 MG TAB PO SCH (22:31)
[2021-08-20 00:47] LABS: Hepatitis A Antibody IgM Nonreactive (Nonreactive); Hepatitis B Core IgM Nonreactive (Nonreactive); Hepatitis B Surface Antigen Nonreactive (Nonreactive); Hepatitis C IgG Antibody Nonreactive (Nonreactive)
[2021-08-20] MEDS: PANTOPRAZOLE 40 MG TABLET PO SCH (05:58)
[2021-08-20] MEDS: LEVOTHYROXINE 50 MCG TAB PO SCH (05:58)
[2021-08-20 06:00] LABS: Glucose,Whole Blood 87 mg/dL (75-99)
[2021-08-20] MEDS: lisinopriL 20 MG TAB PO SCH (09:13)
[2021-08-20] MEDS: FLUoxetine HCL 20 MG CAP PO SCH (09:13)
[2021-08-20] MEDS: amLODIPine 5 MG TAB PO SCH (09:13)
[2021-08-20] MEDS: ASPIRIN 81 MG PO SCH (09:13)
[2021-08-20 09:47] LABS: Albumin 2.7 g/dL (3.5-5.0); Calcium 8.2 mg/dL (8.4-10.2); Potassium 4.1 mmol/L (3.5-5.1); Total Bilirubin 1.2 mg/dL (0.2-1.3); Total Protein 5.4 g/dL (6.3-8.2)
[2021-08-20 11:56] LABS: Glucose,Whole Blood 111 mg/dL (75-99)
--- NOTE | 2021-08-20 13:42 | P.PN ---
Subjective Progress Note Date: 08/20/21 HISTORY OF PRESENT ILLNESS This is an 85-year-old female patient of Dr. Santamaria with past medical history of hypertension, hyperlipidemia, gastroesophageal reflux disease, hypothyroidism, recurrent depression and generalized anxiety disorder, mild intermittent asthma. Family concern for generalized weakness and inability or difficulty walking, not eating or drinking and weight loss along with increased confusion. Symptoms been going on for the last couple months since Covid 19 and gradually worsening. Patient presented to [facility] for ev aluation. She was found to be afebrile, heart rate 79, blood pressure 115/69, pulse ox 98% on room air. EKG was a sinus rhythm with PVCs, lateral T-wave inversion. WBC 14, hemoglobin 12.9, platelet count 188. Sodium 131, potassium 2.4, chloride 87, CO2 33, BUN 52 and creatinine 2. Blood sugar 123. Magnesium 1.2. Total bilirubin 1.6, AST 212, ALT 243. Troponins 0.132, 0.088, 0.089. Albumin 3.2. TSH 6.31, free T4 elevated at 2.38, free T3 1 0.9. Urinalysis cloudy, blood small, 1+, leukoesterase small, bacteria many. Coronavirus PCR detected. Patient admitted to the cardiac stepdown unit, potassium and magnesium replacements, consult with cardiology for elevated troponins and neurology for mental status changes. Speech therapy consult added. 08/20: Patient denies any new complaints. Patient has been afebrile, heart rate in the 80s and 90s, blood pressure 134/84, pulse ox 96% on 2 L nasal cannula. Repeat blood work reveals sodium 132, potassium 4.1, BUN 26 and creatinine 1.04. Blood sugars are running between 87 and 111. AST 109, ALT 155, alkaline phosphatase 104. Hepatitis panel was nonreactive. Patient has been seen by neurology and abnormal CAT scan of the brain showed evidence of a small subarachnoid hemorrhage over the right frontal convexity. Patient also followed by cardiology for elevated troponins thought to be related to acute kidney injury, continue aspirin and statin and amlodipine. She will be transferred to the [facility] floor without telemetry. Abdominal ultrasound revealed limited exam but no definite acute process. No hydronephrosis bilaterally. CAT scan of the brain reveals signal within the right frontal lobe sulci in the area of concern on prior CAT scan consistent with subarachnoid hemorrhage. MRI of the brain initially read as no evidence of intracranial mass or acute symptoms acute infarct or evidence of intracranial hemorrhage. Addendum to this document states that there is a right frontal lobe sulci concerning for subarachnoid hemorrhage on CAT scan. Echocardiogram reveals EF of 50-55% with borderline concentric left ventricular hypertrophy, mild aortic stenosis, moderate to severe tricuspid regurgitation, moderate pulmonary hypertension. REVIEW OF SYSTEMS Constitutional: No fever, no chills, no night sweats. Reported weight change. Reported weakness, Reported fatigue or lethargy. No daytime sleepiness. EENT: No headache. No blurred vision or double vision, no loss of vision. No loss of Hearing, no ringing in the ears, no dizziness. No nasal drainage or congestion. No epistaxis. No sore throat. Lungs: No shortness of breath, cough, no sputum production. No wheezing. Cardiovascular: No chest pain, no lower extremity edema. No palpitations. No paroxysmal nocturnal dyspnea. No orthopnea. No lightheadedness or dizziness. No syncopal episodes. Abdominal: No abdominal pain. No nausea, vomiting. No diarrhea. No constipation. No bloody or tarry stools. Reported loss of appetite. Genitourinary: No dysuria, increased frequency, urgency. No urinary retention. Musculoskeletal: No myalgias. No muscle weakness, no gait dysfunction, no frequent falls. No back pain. No neck pain. Integumentary: No wounds, no lesions. No rash or pruritus. No unusual bruising. No change in hair or nails. Neurologic: No aphasia. No facial droop. Reported change in mentation. No head injury. No headache. No paralysis. No paresthesia. Psychiatric: No depression. No anxiety. No mood swings. Endocrine: No abnormal blood sugars. No weight change. No excessive sweating or thirst. No cold intolerance. PHYSICAL EXAMINATION Gen: This is an 85-year-old female. Patient is resting in bed and appears to be comfortable and in no acute distress. HEENT: Head is atraumatic, normocephalic. Pupils equal, round. Sclerae is anicteric. NECK: Supple. No JVD. No lymphadenopathy. No thyromegaly. LUNGS: Clear to auscultation. No wheezes or rhonchi. No intercostal retractions. HEART: Regular rate and rhythm. Systolic murmur at the right sternal border murmur. ABDOMEN: Soft. Bowel sounds are present. No masses. No tenderness. EXTREMITIES: No pedal edema. No calf tenderness. NEUROLOGICAL: Patient is awake, alert and oriented to person and place. Cranial nerves 2 through 12 are grossly intact. ASSESSMENT AND PLAN 1. Acute kidney injury, ATN, resolved. Renal ultrasound revealed no hydronephrosis, monitor renal function. IV fluids discontinued. 2. Severe hypokalemia and hypomagnesemia secondary to dehydration. Continue replacement and recheck lab values. 3. Toxic Metabolic encephalopathy most likely secondary to acute kidney injury and underlying dementia, recent Covid 19, hyponatremia and hypokalemia and subarachnoid hemorrhage. Consult with neurology. 4. Elevated troponins without complaints of chest pain. Cardiology consult for she did. 5. Elevated liver function tests of unclear etiology. Abdominal ultrasound is negative for acute findings, acute hepatitis panel negative. 6. Hypothyroidism with elevated TSH and free T4. Levothyroxine decreased to 50 g daily. 7. Fall with small subarachnoid hemorrhage over the right frontal convexity. POA. 8. Hypertension. Continue lisinopril 20 mg daily, amlodipine 5 mg daily 9. Hyperlipidemia. Continue atorvastatin 20 mg at bedtime 10. Gastroesophageal reflux disease. Continue Protonix. 11. Recurrent depression and generalized anxiety disorder. Continue Prozac 20 no grams daily, Xanax 0.25 mg at bedtime. 12. Mild intermittent asthma. Continue Singulair 10 mg at bedtime. 13. Dementia. Continue Aricept 5 mg at bedtime. 12. COVID-19 testing negative. Patient has been hospitalized during a pandemic. DISCHARGE PLAN Return home with daughter and grandchildren. No home care planned. Possible discharge tomorrow. Impression and plan of care have been directed as dictated by the signing physician. Nita De La Torre nurse practitioner acting as scribe for signing physician. Objective - Vital Signs Vital signs: Vital Signs Temp 98.2 F 08/20/21 03:00 Pulse 89 08/20/21 03:00 Resp 20 08/20/21 03:00 BP 131/77 08/20/21 03:00 Pulse Ox 98 08/20/21 03:00 Intake & Output 08/19/21 08/20/21 08/20/21 18:59 06:59 18:59 Intake Total 1618 Output Total 3300 Balance -1682 Intake: Intake, IV Titration 1200 Amount 0.9% NaCl with KCl 20 Meq 900 /l 1,000 ml @ 75 mls/hr IV .[id number] [facility] Rx#: [id number] Potassium Chloride 20 meq 300 In Water For Injection 1 100ml.bag @ 50 mls/hr IVPB Q2H [facility] Rx#: [id number] Oral 118 Hemodialysis 300 Output: Urine 300 Hemodialysis 3000 Other: Voiding Method Diaper Diaper # Voids 2 2 - Labs CBC & Chem 7: 08/19/21 07:21 08/20/21 08:35 Labs: Abnormal Lab Results - Last 24 Hours (Table) 08/19/21 Range/Units 07:21 RBC 3.67 L (3.80-5.40) m/uL Neutrophils # 8.8 H (1.3-7.7) k/uL Lymphocytes # 0.8 L (1.0-4.8) k/uL Microbiology - Last 24 Hours (Table) 08/18/21 22:35 Blood Culture - Preliminary Blood No Growth after 24 hours
--- NOTE | 2021-08-20 14:35 | P.PN ---
Subjective This is a pleasant 85-year-old female past medical history significant for hypertension, dementia, dyslipidemia, GERD, hypothyroidism, anxiety, depression, asthma. She does not follow a manager express.We have been asked to see in consultation for elevated troponin. Patient presents to the emergency department family concerning for generalized weakness, decreased appetite, not eating or drinking, weight loss, increased confusion and inability to ambulate. Patient was diagnosed with COVID-29 June and over the past couple months her symptoms gradually been worsening. Patient denies any chest pain or shortness of breath at bedside. She denies any complaints. She is a poor historian, unable to give accurate medical history at this time. On admission, troponins were drawn that revealed 0.13, 0.08, 0.08. Patient was also found to have severe hypokalemia, hypomagnesium, dehydrated, acute kidney injury, and elevated liver enzymes. EKG difficult to obtain due to patient having bilateral shaking of the arms. EKG reveals sinus rhythm, PVC, HR 84, T wave inversion in inferior lateral leads. 08/20/2021 Patient seen and examined at bedside, no distress. She denies any chest pain or shortness of breath. She denies any complaints. She is alert and oriented to person and knows she is in the hospital. Telemetry reviewed patient in sinus mechanism, with PVCs noted. No evidence of atrial fibrillation noted. Repeat EKG today revealed sinus rhythm. Echocardiogram completed which revealed EF of 5055 percent, mild aortic stenosis with a peak slashing gradient of 25 mmHg/16 mmHg, moderate to severe tricuspid regurgitation, moderate pulmonary hypertension with RVSP of 47 mmHg. Labs, sodium 132, potassium 4.1, BUN 26, serum creatinine 1.0, magnesium 1.7 She's currently maintained on aspirin 81 mg daily, amlodipine 5 mg daily, at orvastatin 20 mg nightly PHYSICAL EXAMINATION Blood pressure 134/84, heart rate 96, afebrile, oxygen saturations 96% on 2 L nasal cannula CONSTITUTIONAL: No apparent distress. HEENT: Head is normocephalic. Neck Supple. No JVD. No carotid bruit. CHEST EXAMINATION: Lungs are diminished in the bases to auscultation. HEART EXAMINATION: Regular rate and rhythm. S1, S2 heard. ABDOMEN: Soft, nontender. EXTREMITIES: no lower extremity edema and no calf tenderness. NEUROLOGIC EXAMINATION: Patient is awake, alert oriented to person ASSESSMENT Acute Kidney Injury Elevated LFTs Hypokalemia Hypomagnesium Dehydration Covid-19 Infection Elevated troponin, likely related to above, does not appear to be consistent with acute coronary syndrome History of hypertension Dyslipidemia History of dementia PLAN At this time we recommend medical management of elevated troponin. Elevated troponin likely related to acute kidney injury and acute transaminitis. Patient's kidney function improved with IV fluids. Replace electrolytes per protocol. Echocardiogram reviewed. No further inpatient work up from a cardiology standpoint. Continue aspirin, statin, amlodipine. The patient stated. Please reconsult if needed. Nurse practitioner note has been reviewed by physician. Signing provider agrees with the documented findings, assessment, and plan of care. Objective - Vital Signs Vital signs: Vital Signs Temp 98.2 F 08/20/21 03:00 Pulse 96 08/20/21 08:00 Resp 16 08/20/21 08:00 BP 134/84 08/20/21 08:00 Pulse Ox 96 08/20/21 08:00 Intake & Output 08/19/21 08/20/21 08/20/21 18:59 06:59 18:59 Intake Total 1618 Output Total 3300 Balance -1682 Intake: Intake, IV Titration 1200 Amount 0.9% NaCl with KCl 20 Meq 900 /l 1,000 ml @ 75 mls/hr IV .[id number] STA Rx#: [id number] Potassium Chloride 20 meq 300 In Water For Injection 1 100ml.bag @ 50 mls/hr IVPB Q2H [facility] Rx#: [id number] Oral 118 Hemodialysis 300 Output: Urine 300 Hemodialysis 3000 Other: Voiding Method Diaper Diaper # Voids 2 2 - Labs CBC & Chem 7: 08/19/21 07:21 08/20/21 08:35 Labs: Abnormal Lab Results - Last 24 Hours (Table) 08/20/21 Range/Units 08:35 Sodium 132 L (137-145) mmol/L BUN 26 H (7-17) mg/dL Glucose 105 H (74-99) mg/dL Calcium 8.2 L (8.4-10.2) mg/dL AST 109 H (14-36) U/L ALT 155 H (4-34) U/L Total Protein 5.4 L (6.3-8.2) g/dL Albumin 2.7 L (3.5-5.0) g/dL Microbiology - Last 24 Hours (Table) 08/18/21 22:35 Blood Culture - Preliminary Blood No Growth after 24 hours
[2021-08-20 16:40] LABS: Glucose,Whole Blood 101 mg/dL (75-99)
[2021-08-20] MEDS: MONTELUKAST 10 MG TAB PO SCH (20:30)
[2021-08-20] MEDS: ALPRAZolam 0.25 MG TAB PO SCH (20:30)
[2021-08-20] MEDS: ATORVASTATIN 20 MG TAB PO SCH (20:30)
[2021-08-20] MEDS: DONEPEZIL 5 MG TAB PO SCH (20:30)
[2021-08-20 20:32] LABS: Glucose,Whole Blood 90 mg/dL (75-99)
--- NOTE | 2021-08-20 23:21 | P.PN ---
Subjective Progress Note Date: 08/20/21 Patient was seen for a follow-up. Patient is laying comfortably in the bed. Offers no complaints. Patient's telemetry monitoring showing sinus rhythm. Patient admits to having some headache. Not too bad. Objective - Vital Signs Vital signs: Vital Signs Temp 98.9 F 08/20/21 20:15 Pulse 91 08/20/21 20:15 Resp 20 08/20/21 20:15 BP 136/83 08/20/21 20:15 Pulse Ox 95 08/20/21 20:15 Intake & Output 08/20/21 08/20/21 08/21/21 06:59 18:59 06:59 Intake Total 25 Output Total 1 Balance 24 Intake: Oral 25 Output: Urine 1 Other: Voiding Method Diaper Diaper Diaper # Voids 2 1 1 - Exam Patient is alert and awake. Speech and language functions are normal. Patient is very hard of hearing. There is no pronator drift. The strength appears equal. - Labs CBC & Chem 7: 08/19/21 07:21 08/20/21 08:35 Labs: Abnormal Lab Results - Last 24 Hours (Table) 08/20/21 08/20/21 08/20/21 Range/Units 08:35 11:53 16:39 Sodium 132 L (137-145) mmol/L BUN 26 H (7-17) mg/dL Glucose 105 H (74-99) mg/dL POC Glucose (mg/dL) 111 H 101 H (75-99) mg/dL Calcium 8.2 L (8.4-10.2) mg/dL AST 109 H (14-36) U/L ALT 155 H (4-34) U/L Total Protein 5.4 L (6.3-8.2) g/dL Albumin 2.7 L (3.5-5.0) g/dL Microbiology - Last 24 Hours (Table) 08/18/21 22:35 Blood Culture - Preliminary Blood No Growth after 24 hours Assessment and Plan Assessment: * Altered mental status, likely due to toxic metabolic encephalopathy. Reasons multifactorial as below. * Recent acute Covid-19 infection, still positive for ravi virus. * Hyponatremia, hypokalemia * Acute kidney injury, likely from dehydration, improving. * Elevated cardiac enzymes * Elevated liver enzymes * Abnormal thyroid functions * Abnormal computed tomography scan of head, with evidence of a small subarachnoid hemorrhage over the right frontal convexity. * Tremors, likely metabolic due to all reasons mentioned above. Plan: * Patient has presented with toxic metabolic encephalopathy from all the reasons mentioned above. On top of that, patient also suffered from a fall with subarachnoid hemorrhage. Hopefully her encephalopathy will improve over time. Patient's renal functions are improving. We will continue to follow. * B12, folate pending. * Management of abnormal thyroid functions and other medical/metabolic conditions as per IM. * At this time Parkinson's disease cannot be diagnosed because of multiple medical/metabolic dysfunctions including abnormal thyroid functions, which all can contribute to the tremors. Patient's daughter was recommended to have patient follow-up with a neurologist locally, once all metabolic/medical conditions have come under control, and if patient continues to have the tremors and balance issues. * Repeat computed tomography scan of the head in the morning to follow-up on subarachnoid hemorrhage.
[2021-08-21 06:15] LABS: Glucose,Whole Blood 84 mg/dL (75-99)
[2021-08-21] MEDS: PANTOPRAZOLE 40 MG TABLET PO SCH (06:48)
[2021-08-21] MEDS: LEVOTHYROXINE 50 MCG TAB PO SCH (06:48)
--- NOTE | 2021-08-21 08:05 | CT ---
EXAMINATION TYPE: CT brain wo con DATE OF EXAM: 08/21/2021 HISTORY: F/U [facility] CT DLP: 1099.4 mGycm. Automated Exposure Control for Dose Reduction was Utilized. TECHNIQUE: CT scan of the head is performed without contrast. COMPARISON: CT brain 3 days earlier. FINDINGS: There is is mild to moderate diffuse ventricular and sulcal prominence redemonstrated. The re is mild to moderate low-attenuation in the periventricular white matter redemonstrated. There is p ersistent hyperdense material high right parietal region redemonstrated. No significant change from r ecent CT. There is hyperintensity on FLAIR images without obvious hyperintensity on T1-weighted image s. The globes are intact and the visualized sinuses remain clear. IMPRESSION: No acute intracranial hemorrhage or midline shift. There is mild to moderate diffuse ce rebral atrophy and chronic small vessel ischemic change redemonstrated. Possible small degree of rig ht parietal subarachnoid hemorrhage is not significantly changed from 3 days earlier.
[2021-08-21] MEDS: ASPIRIN 81 MG PO SCH (09:22)
[2021-08-21] MEDS: FLUoxetine HCL 20 MG CAP PO SCH (09:22)
[2021-08-21] MEDS: amLODIPine 5 MG TAB PO SCH (09:22)
[2021-08-21] MEDS: lisinopriL 20 MG TAB PO SCH (09:22)
[2021-08-21 09:28] VITALS: BP 147/82; PULSE 91; RESP 16; TEMP 98.4
--- NOTE | 2021-08-21 10:00 | P.DS ---
Providers Date of admission: 08/18/21 21:16 Expected date of discharge: 08/21/21 Attending physician: Dayday Santamaria Consults: 08/19/21 08:36 Consult Physician Routine Consulting Provider: Deric Gamez Consult Reason/Comments: elevated trops Do you want consulting provider notified?: Yes Consult Physician Routine Consulting Provider: Arnulfo Land Consult Reason/Comments: mental status change, worsening dementia/parkinson Do you want consulting provider notified?: Yes Primary care physician: Dayday Santamaria [facility] Hospital Course: HISTORY OF PRESENT ILLNESS This is an 85-year-old female patient of Dr. Santamaria with past medical history of hypertension, hyperlipidemia, gastroesophageal reflux disease, hypothyroidism, recurrent depression and generalized anxiety disorder, mild intermittent asthma. Family concern for generalized weakness and inability or difficulty walking, not eating or drinking and weight loss along with increased confusion. Symptoms been going on for the last couple months since Covid 19 and gradually worsening. Patient presented to [facility] emergency center for evaluation. She was found to be afebrile, heart rate 79, blood pressure 115/69, pulse ox 98% on room air. EKG was a sinus rhythm with PVCs, lateral T-wave inversion. WBC 14, hemoglobin 12.9, platelet count 188. Sodium 131, potassium 2.4, chlori de 87, CO2 33, BUN 52 and creatinine 2. Blood sugar 123. Magnesium 1.2. Total bilirubin 1.6, AST 212, ALT 243. Troponins 0.132, 0.088, 0.089. Albumin 3.2. TSH 6.31, free T4 elevated at 2.38, free T3 1 0.9. Urinalysis cloudy, blood small, 1+, leukoesterase small, bacteria many. Coronavirus PCR detected. Patient admitted to the cardiac stepdown unit, potassium and magnesium replacements, consult with cardiology for elevated troponins and neurology for mental status changes. Speech therapy consult added. 08/20: Patient denies any new complaints. Patient has been afebrile, heart rate in the 80s and 90s, blood pressure 134/84, pulse ox 96% on 2 L nasal cannula. Repeat blood work reveals sodium 132, potassium 4.1, BUN 26 and creatinine 1.04. Blood sugars are running between 87 and 111. AST 109, ALT 155, alkaline phosphatase 104. Hepatitis panel was nonreactive. Patient has been seen by neurology and abnormal CAT scan of the brain showed evidence of a small subarachnoid hemorrhage over the right frontal convexity. Patient also followed by cardiology for elevated troponins thought to be related to acute kidney injury, continue aspirin and statin and amlodipine. She will be transferred to the [facility] floor without telemetry. Abdominal ultrasound revealed limited exam but no definite acute process. No hydronephrosis bilaterally. CAT scan of the brain reveals signal within the right frontal lobe sulci in the area of concern on prior CAT scan consistent with subarachnoid hemorrhage. MRI of the brain initially read as no evidence of intracranial mass or acute symptoms acute infarct or evidence of intracranial hemorrhage. Addendum to this document states that there is a right frontal lobe sulci concerning for subarachnoid hemorrhage on CAT scan. Echocardiogram reveals EF of 50-55% with borderline concentric left ventricular hypertrophy, mild aortic stenosis, moderate to severe tricuspid regurgitation, moderate pulmonary hypertension. 08/21: Patient continues to have confusion. No new concerns. Patient's nurse does not voice any concerns overnight. She has been stable. Patient is afebrile, heart rate 91, blood pressure 147/82, pulse ox 95% on 3 L nasal cannula. Capillary blood glucose running between 84 and 111. Blood culture no growth at 48 hours. Repeat CAT scan of the brain showed no acute intracranial hemorrhage or midline shift. There is mild to moderate diffuse cerebral atrophy and chronic small vessel ischemic change read demonstrated. Possible small degree of right parietal subarachnoid hemorrhage is not significantly changed from 3 days earlier. DISCHARGE DIAGNOSES 1. Acute kidney injury, ATN, resolved. 2. Severe hypokalemia and hypomagnesemia secondary to dehydration. 3. Toxic Metabolic encephalopathy most likely secondary to acute kidney injury and underlying dementia, recent Covid 19, hyponatremia and hypokalemia and subarachnoid hemorrhage. 4. Elevated troponins without complaints of chest pain. Acute coronary syndrome ruled out 5. Elevated liver function tests of unclear etiology. Abdominal ultrasound is negative for acute findings, acute hepatitis panel negative. 6. Hypothyroidism with elevated TSH and free T4. Levothyroxine decreased to 50 g daily. 7. Fall with small subarachnoid hemorrhage over the right frontal convexity. POA. 8. Hypertension. 9. Hyperlipidemia. 10. Gastroesophageal reflux disease. 11. Recurrent depression and generalized anxiety disorder. 12. Mild intermittent asthma. 13. Dementia. DISCHARGE PLAN Subacute rehab at [facility] Greater than 35 minutes was utilized and coordinating patient's discharge. Impression and plan of care have been directed as dictated by the signing physician. Nita De La Torre nurse practitioner acting as scribe for signing physician. Patient Condition at Discharge: Serious Plan - Discharge Summary New Discharge Prescriptions: Continue FLUoxetine HCL [Fluoxetine HCl] 20 mg PO DAILY amLODIPine BESYLATE/BENAZEPRIL [Amlodipine-Benazepril 5-20 mg] 1 cap PO DAILY Atorvastatin [Lipitor] 20 mg PO HS Aspirin EC [Ecotrin Low Dose] 81 mg PO DAILY Montelukast [Singulair] 10 mg PO HS Donepezil [Aricept] 5 mg PO HS Levothyroxine Sodium [Synthroid] 75 mcg PO DAILY Omeprazole 20 mg PO DAILY ALPRAZolam [Xanax] 0.25 mg PO DAILY PRN #3 tab PRN Reason: Anxiety ALPRAZolam [Xanax] 0.25 mg PO HS #3 tab Discharge Medication List FLUoxetine HCL [Fluoxetine HCl] 20 mg PO DAILY 01/14/14 [History] amLODIPine BESYLATE/BENAZEPRIL [Amlodipine-Benazepril 5-20 mg] 1 cap PO DAILY 01/14/14 [History] Atorvastatin [Lipitor] 20 mg PO HS 03/30/16 [History] Aspirin EC [Ecotrin Low Dose] 81 mg PO DAILY 09/13/16 [History] Montelukast [Singulair] 10 mg PO HS 03/21/19 [History] Donepezil [Aricept] 5 mg PO HS 08/18/21 [History] Levothyroxine Sodium [Synthroid] 75 mcg PO DAILY 08/18/21 [History] Omeprazole 20 mg PO DAILY 08/18/21 [History] ALPRAZolam [Xanax] 0.25 mg PO DAILY PRN #3 tab 08/21/21 [Rx] ALPRAZolam [Xanax] 0.25 mg PO HS #3 tab 08/21/21 [Rx] Follow up Appointment(s)/Referral(s): Dayday Santamaria MD [Primary Care Provider] - 1 Week (AT [facility]) Discharge Disposition: TRANSFER TO SNF/ECF
== END 2021-08-21 12:05 | DRG 82 ==
LOC: EC 11:33 → 3SCARD 21:16
PROVIDERS: ADMIT Internal Medicine Geriatric Medicine; ATTEND Internal Medicine Geriatric Medicine
DX: S06.6X9A Traumatic subarachnoid hemorrhage with loss of consciousness of unspecified duration, initial encounter (principal); G92.8 Other toxic encephalopathy; N17.0 Acute kidney failure with tubular necrosis; U07.1 COVID-19; E87.1 Hypo-osmolality and hyponatremia; F33.9 Major depressive disorder, recurrent, unspecified; N39.0 Urinary tract infection, site not specified; I67.89 Other cerebrovascular disease; W18.30XA Fall on same level, unspecified, initial encounter; Y92.009 Unspecified place in unspecified non-institutional (private) residence as the place of occurrence of the external cause; E78.5 Hyperlipidemia, unspecified; K21.9 Gastro-esophageal reflux disease without esophagitis; E89.0 Postprocedural hypothyroidism; I08.2 Rheumatic disorders of both aortic and tricuspid valves; G20 Parkinson's disease; I27.20 Pulmonary hypertension, unspecified; F02.80 Dementia in other diseases classified elsewhere, unspecified severity, without behavioral disturbance, psychotic disturbance, mood disturbance, and anxiety; F41.1 Generalized anxiety disorder; J44.9 Chronic obstructive pulmonary disease, unspecified; R77.8 Other specified abnormalities of plasma proteins; J45.20 Mild intermittent asthma, uncomplicated; I10 Essential (primary) hypertension; H91.90 Unspecified hearing loss, unspecified ear; R74.01 Elevation of levels of liver transaminase levels; I49.1 Atrial premature depolarization; I49.3 Ventricular premature depolarization; Z79.82 Long term (current) use of aspirin; E86.0 Dehydration; E83.42 Hypomagnesemia; E87.6 Hypokalemia; Z79.890 Hormone replacement therapy; Z79.899 Other long term (current) drug therapy; Z83.3 Family history of diabetes mellitus; Z85.828 Personal history of other malignant neoplasm of skin; Z98.51 Tubal ligation status; Z98.890 Other specified postprocedural states; Z90.49 Acquired absence of other specified parts of digestive tract; Z83.6 Family history of other diseases of the respiratory system; Z60.2 Problems related to living alone
CPT/HCPCS: 36415; 70450; 70551; 71046; 76700; 80048; 80053; 80074; 81001; 82607; 82746; 83605; 83735; 84100; 84132; 84439; 84443; 84481; 84484; 85025; 85610; 85730; 87040; 87635; 90935; 93005; 93308; 94760; 96365; 96366; 96368; 96376; 99285

== ENCOUNTER 2022-11-18 13:51 | Emergency (ER) | payer MEDICARE, BC ==
[2022-11-18] MEDS ORDERED: SODIUM CHLORIDE 0.9% 500 ML 500 ML IV STA (14:21)
--- NOTE | 2022-11-18 14:29 | ED ---
General Adult HPI - General Chief complaint: Syncope Stated complaint: Syncope Time Seen by Provider: 11/18/22 13:55 Source: patient, EMS, RN notes reviewed, old records reviewed Mode of arrival: EMS - History of Present Illness Initial comments: This is an 87-year-old female presents emergency Department with her daughter. Daughter gives all the history. Daughter states they were at the doctor's office for recheck because she's being treated currently for urinary tract inf ection she went to the bathroom and then the daughter thought she was in a little bit longer than she should be she went in the patient was passed out on the toilet she remained unconscious for about 2 minutes according to the daughter. Patient herself denies any pain any difficulty breathing any fever chills per patient denies abdominal pain patient's nausea vomiting diarrhea. Patient denies any numbness or weakness. Patient has a headache. Patient does not remember the event. - Related Data Home Medications Medication Instructions Recorded Confirmed FLUoxetine HCL [Fluoxetine HCl] 20 mg PO DAILY 01/14/14 11/18/22 Atorvastatin [Lipitor] 20 mg PO HS 03/30/16 11/18/22 Aspirin EC [Ecotrin Low Dose] 162 mg PO HS 09/13/16 11/18/22 Montelukast [Singulair] 10 mg PO HS 03/21/19 11/18/22 Levothyroxine Sodium [Synthroid] 75 mcg PO DAILY 08/18/21 11/18/22 Omeprazole 20 mg PO DAILY 08/18/21 11/18/22 QUEtiapine [SEROquel] 12.5 mg PO HS 11/10/22 11/18/22 Tamsulosin [Flomax] 0.4 mg PO DAILY 11/10/22 11/18/22 chlordiazePOXIDE/CLIDINIUM BR 1 cap PO AC-BID 11/10/22 11/18/22 [chlordiazePOXIDE/CLIDINIUM BR Cap] Previous Rx's Medication Instructions Recorded Amoxic-Pot Clav 875-125Mg 1 tab PO BID 7 Days #14 tab 11/14/22 [Augmentin 875-125] Allergies Allergy/AdvReac Type Severity Reaction Status Date / Time No Known Allergies Allergy Verified 11/18/22 14:43 Review of Systems ROS Statement: Those systems with pertinent positive or pertinent negative responses have been documented in the HPI. ROS Other: All systems not noted in ROS Statement are negative. Past Medical History Past Medical History: Cancer, COPD, Hyperlipidemia, Hypertension, Thyroid D isorder Additional Past Medical History / Comment(s): hx skin cancer, possible tia, lose of vision lt eye, experiences shaking in hands, head and chin History of Any Multi-Drug Resistant Organisms: None Reported Past Surgical History: Cholecystectomy, Hernia Repair, Tubal Ligation Additional Past Surgical History / Comment(s): THYROIDECTOMY, varicose vein stripping Past Anesthesia/Blood Transfusion Reactions: No Reported Reaction Past Psychological History: Anxiety Smoking Status: Never smoker Past Alcohol Use History: None Reported Past Drug Use History: None Reported - Past Family History Mother Family Medical History: Diabetes Mellitus Father Family Medical History: Pneumonia Sister(s) Family Medical History: Cancer General Exam - General Exam Comments Initial Comments: GENERAL: Patient is well-developed and well-nourished. Patient is nontoxic and well- hydrated and is in no acute distress. ENT: Neck is soft and supple. No significant lymphadenopathy is noted. Oropharynx is clear. Moist mucous membranes. Neck has full range of motion without eliciting any pain. EYES: The sclera were anicteric and conjunctiva were pink and moist. Extraocular movements were intact and pupils were equal round and reactive to light. Eyelids were unremarkable. PULMONARY: Unlabored respirations. Good breath sounds bilaterally. No audible rales rhonchi or wheezing was noted. CARDIOVASCULAR: There is a regular rate and rhythm without any murmurs gallops or rubs. ABDOMEN: Soft and nontender with normal bowel sounds. SKIN: Skin is clear with no lesions or rashes and otherwise unremarkable. NEUROLOGIC: Patient is alert and oriented x3. Cranial nerves II through XII are grossly intact. Motor and sensory are also intact. Normal speech, volume and content. Symmetrical smile. MUSCULOSKELETAL: Normal extremities with adequate strength and full range of motion. LYMPHATICS: No significant lymphadenopathy is noted PSYCHIATRIC: Normal psychiatric evaluation. Course Vital Signs 11/18/22 11/18/22 13:53 14:00 Temperature 98.1 F Pulse Rate 83 Respiratory 18 Rate Blood Pressure 116/79 O2 Sat by Pulse 93 L 99 Oximetry Medical Decision Making - Medical Decision Making EKG was interpreted by myself shows a sinus rhythm at 80 bpm FL interval 132 QRS is 70 QT interval 369 QTC is 45 per patient's EKG shows no ST segment elevation or depression. Was pt. sent in by a medical professional or institution (, [facility], RADIO REPAIRER, urgent care, hospital, or senior care...) When possible be specific @ -No Did you speak to anyone other than the patient for history (EMS, parent, family, police, friend...)? What history was obtained from this source @ -Daughter gave most of the history Did you review nursing and triage notes (agree or disagree)? Why? @ -I reviewed and agree with nursing and triage notes Were old charts reviewed (outside hosp., previous admission, EMS record, old EKG, old radiological studies, urgent care reports/EKG's, senior care records)? Report findings @ -I reviewed prior lab work on this patient Differential Diagnosis (chest pain, altered mental status, abdominal pain women, abdominal pain men, vaginal bleeding, weakness, fever, dyspnea, syncope, headache, dizziness, GI bleed, back pain, seizure, CVA, palpatations, mental health, musculoskeletal)? @ -Differential Syncope: Valvular disease, hypertrophic cardiomyopathy, pulmonary embolism, tamponade, tachycardia, bradycardia, RI, hypovolemia, hemorrhage, dissection, anemia, intracranial hemorrhage, seizure, hypoglycemia, carbon monoxide poisoning, this is not meant to be an all-inclusive list. EKG interpreted by me (3pts min.). @ -As above X-rays interpreted by me (1pt min.). @ -Chest x-ray she was interpreted by myself and showed a large hiatal hernia that was previously seen CT interpreted by me (1pt min.). @ -None done U/S interpreted by me (1pt. min.). @ -None done What testing was considered but not performed or refused? (CT, X-rays, U/S, labs)? Why? @ -None What meds were considered but not given or refused? Why? @ -None Did you discuss the management of the patient with other professionals (professionals i.e. [facility] Redd, RADIO REPAIRER, lab, RT, psych nurse, social service technician, rn cardiology, teacher, flight communications officer, onsite case manager)? Give summary @ -Hospice came down to speak with the patient because of family requested the patient be on hospice they spoke with the patient and the family and decided that the patient could be discharged home and they will begin hospice alf Was smoking cessation discussed for >3mins.? @ -No Was critical care preformed (if so, how long)? @ -No Were there social determinants of health that impacted care today? How? (Homelessness, low income, unemployed, alcoholism, drug addiction, transportation, low edu. Level, literacy, decrease access to med. care, long-term, rehab)? @ -No Was there de-escalation of care discussed even if they declined (Discuss DNR or withdrawal of care, Hospice)? DNR status @ -No What co-morbidities impacted this encounter? (DM, HTN, Smoking, COPD, CAD, Cancer, CVA, ARF, Chemo, Hep., AIDS, mental health diagnosis, sleep apnea, morbid obesity)? @ -None Was patient admitted / discharged? Hospital course, mention meds given and route , prescriptions, significant lab abnormalities, going to OR and other pertinent info. @ - Because hospice came down and saw the patient and family and patient agreed to go home and be put into hospice care the patient be discharged home Undiagnosed new problem with uncertain prognosis? @ -No Drug Therapy requiring intensive monitoring for toxicity (Heparin, Nitro, Insulin, Cardizem)? @ -No Were any procedures done? @ -No Diagnosis/symptom? @ -Syncope Acute, or Chronic, or Acute on Chronic? @ -Acute Uncomplicated (without systemic symptoms) or Complicated (systemic symptoms)? @ -Complicated Side effects of treatment? @ -No Exacerbation, Progression, or Severe Exacerbation? @ -No Poses a threat to life or bodily function? How? (Chest pain, USA, RI, pneumonia, PE, COPD, DKA, ARF, appy, cholecystitis, CVA, Diverticulitis, Homicidal, Suicidal, threat to staff... and all critical care pts) @ -Yes this could have been due to an arrhythmia which could lead to the patient's . - Lab Data Result diagrams: 11/18/22 14:25 11/18/22 14:25 Lab Results 11/18/22 11/18/22 11/18/22 Range/Units 14:25 14:25 14:25 WBC 8.6 (3.8-10.6) k/uL RBC 3.56 L (3.80-5.40) m/uL Hgb 10.9 L (11.4-16.0) gm/dL Hct 34.5 (34.0-46.0) % MCV 96.8 (80.0-100.0) fL MCH 30.7 (25.0-35.0) pg MCHC 31.7 (31.0-37.0) g/dL RDW 14.1 (11.5-15.5) % Plt Count 248 (150-450) k/uL MPV 8.0 Neutrophils % 77 % Lymphocytes % 14 % Monocytes % 6 % Eosinophils % 2 % Basophils % 0 % Neutrophils # 6.5 (1.3-7.7) k/uL Lymphocytes # 1.2 (1.0-4.8) k/uL Monocytes # 0.5 (0-1.0) k/uL Eosinophils # 0.2 (0-0.7) k/uL Basophils # 0.0 (0-0.2) k/uL Hypochromasia Slight PT 10.0 (9.0-12.0) sec INR 0.9 (<1.2) APTT 24.6 (22.0-30.0) sec Sodium 133 L (137-145) mmol/L Potassium 4.3 (3.5-5.1) mmol/L Chloride 98 (98-107) mmol/L Carbon Dioxide 27 (22-30) mmol/L Anion Gap 8 mmol/L BUN 18 H (7-17) mg/dL Creatinine 0.76 (0.52-1.04) mg/dL Est GFR (CKD-EPI)AfAm 81 (>60 ml/min/1.73 sqM) Est GFR (CKD-EPI)NonAf 70 (>60 ml/min/1.73 sqM) Glucose 100 H (74-99) mg/dL Calcium 8.6 (8.4-10.2) mg/dL Magnesium 1.6 (1.6-2.3) mg/dL Total Bilirubin 0.8 (0.2-1.3) mg/dL AST 20 (14-36) U/L ALT 13 (4-34) U/L Alkaline Phosphatase 74 (38-126) U/L Troponin I (0.000-0.034) ng/mL Total Protein 6.0 L (6.3-8.2) g/dL Albumin 3.3 L (3.5-5.0) g/dL 11/18/22 Range/Units 14:25 WBC (3.8-10.6) k/uL RBC (3.80-5.40) m/uL Hgb (11.4-16.0) gm/dL Hct (34.0-46.0) % MCV (80.0-100.0) fL MCH (25.0-35.0) pg MCHC (31.0-37.0) g/dL RDW (11.5-15.5) % Plt Count (150-450) k/uL MPV Neutrophils % % Lymphocytes % % Monocytes % % Eosinophils % % Basophils % % Neutrophils # (1.3-7.7) k/uL Lymphocytes # (1.0-4.8) k/uL Monocytes # (0-1.0) k/uL Eosinophils # (0-0.7) k/uL Basophils # (0-0.2) k/uL Hypochromasia PT (9.0-12.0) sec INR (<1.2) APTT (22.0-30.0) sec Sodium (137-145) mmol/L Potassium (3.5-5.1) mmol/L Chloride (98-107) mmol/L Carbon Dioxide (22-30) mmol/L Anion Gap mmol/L BUN (7-17) mg/dL Creatinine (0.52-1.04) mg/dL Est GFR (CKD-EPI)AfAm (>60 ml/min/1.73 sqM) Est GFR (CKD-EPI)NonAf (>60 ml/min/1.73 sqM) Glucose (74-99) mg/dL Calcium (8.4-10.2) mg/dL Magnesium (1.6-2.3) mg/dL Total Bilirubin (0.2-1.3) mg/dL AST (14-36) U/L ALT (4-34) U/L Alkaline Phosphatase (38-126) U/L Troponin I <0.012 (0.000-0.034) ng/mL Total Protein (6.3-8.2) g/dL Albumin (3.5-5.0) g/dL Disposition Clinical Impression: Syncope Disposition: HOME SELF-CARE Condition: Good Instructions (If sedation given, give patient instructions): Syncope (ED) Is patient prescribed a controlled substance at d/c from ED?: No Referrals: Dayday Santamaria MD [Primary Care Provider] - 1-2 days [facility] [NON-STAFF] - Time of Disposition: 16:36
--- NOTE | 2022-11-18 14:43 | XR ---
EXAMINATION TYPE: XR chest 2V DATE OF EXAM: 11/18/2022 COMPARISON: 11/10/2022 TECHNIQUE: PA and lateral views submitted. HISTORY: Chest pain FINDINGS: Elevated left hemidiaphragm with hyperinflation suggesting COPD. Diffuse osteopenia arthropathy of th e shoulder. No pneumothorax or overt failure. Heart is enlarged. Hypertrophic degenerative changes sp ine. Stable severe compression deformity thoracolumbar junction. Large hiatal hernia noted. IMPRESSION: 1. COPD with the elevated left hemidiaphragm 2. Large hiatal hernia.
[2022-11-18 14:49] LABS: Basophils % (A) 0 %; Eosinophils # (A) 0.2 k/uL (0-0.7); Eosinophils % (A) 2 %; HCT 34.5 % (34.0-46.0); HGB 10.9 gm/dL (11.4-16.0); Hypochromasia Slight; Lymphocytes # (A) 1.2 k/uL (1.0-4.8); Lymphocytes % (A) 14 %; MCH 30.7 pg (25.0-35.0); MCHC 31.7 g/dL (31.0-37.0); MCV 96.8 fL (80.0-100.0); Monocytes # (A) 0.5 k/uL (0-1.0); Monocytes % (A) 6 %; Neutrophils # (A) 6.5 k/uL (1.3-7.7); Neutrophils % (A) 77 %; Platelet Count 248 k/uL (150-450); RBC 3.56 m/uL (3.80-5.40); RDW 14.1 % (11.5-15.5); WBC 8.6 k/uL (3.8-10.6)
[2022-11-18 15:08] LABS: Albumin 3.3 g/dL (3.5-5.0); Calcium 8.6 mg/dL (8.4-10.2); Total Bilirubin 0.8 mg/dL (0.2-1.3)
[2022-11-18 15:10] LABS: INR 0.9 (<1.2); Partial Thromboplastin Time 24.6 sec (22.0-30.0)
[2022-11-18 15:29] LABS: Magnesium 1.6 mg/dL (1.6-2.3); Potassium 4.3 mmol/L (3.5-5.1)
[2022-11-18 17:34] VITALS: BP 134/76; PULSE 78; RESP 16; TEMP 97.9
== END 2022-11-18 18:08 | disposition home or self-care (01) ==
LOC: EC 13:51
DX: K44.9 Diaphragmatic hernia without obstruction or gangrene (principal); R55 Syncope and collapse; I10 Essential (primary) hypertension; E78.5 Hyperlipidemia, unspecified; J44.9 Chronic obstructive pulmonary disease, unspecified; F41.9 Anxiety disorder, unspecified; Z79.82 Long term (current) use of aspirin; Z79.899 Other long term (current) drug therapy; Z90.49 Acquired absence of other specified parts of digestive tract
CPT/HCPCS: 36415; 71046; 80053; 83735; 84484; 85025; 85610; 85730; 93005; 96360; 99285

== ENCOUNTER 2022-11-21 09:26 | Emergency (ER) | payer MEDICARE, BC ==
[2022-11-21 09:48] VITALS: TEMP 97.3
[2022-11-21] MEDS ORDERED: KETOROLAC 15 MG/ML 1 ML VIAL IM STA (09:58)
--- NOTE | 2022-11-21 10:01 | ED ---
General Adult HPI - General Chief complaint: Extremity Injury, Upper Stated complaint: Lt wrist pain Time Seen by Provider: 11/21/22 09:49 Source: patient, family, RN notes reviewed Mode of arrival: wheelchair Limitations: no limitations - History of Present Illness Initial comments: Patient is a pleasant 87-year-old female presenting to the emergency department with left wrist pain. Onset of symptoms was this morning. Family questions if patient may have caught it between her bed and the rail. They state the swelling was worse this morning but has gone down. Patient was given Tylenol without much improvement of symptoms. No history of similar problem previously however patient does have history of arthritis. Patient is somewhat a poor his chalo and majority of history does come from family. - Related Data Home Medications Medication Instructions Recorded Confirmed FLUoxetine HCL [Fluoxetine HCl] 20 mg PO DAILY 01/14/14 11/18/22 Atorvastatin [Lipitor] 20 mg PO HS 03/30/16 11/18/22 Aspirin EC [Ecotrin Low Dose] 162 mg PO HS 09/13/16 11/18/22 Montelukast [Singulair] 10 mg PO HS 03/21/19 11/18/22 Levothyroxine Sodium [Synthroid] 75 mcg PO DAILY 08/18/21 11/18/22 Omeprazole 20 mg PO DAILY 08/18/21 11/18/22 QUEtiapine [SEROquel] 12.5 mg PO HS 11/10/22 11/18/22 Tamsulosin [Flomax] 0.4 mg PO DAILY 11/10/22 11/18/22 chlordiazePOXIDE/CLIDINIUM BR 1 cap PO AC-BID 11/10/22 11/18/22 [chlordiazePOXIDE/CLIDINIUM BR Cap] Previous Rx's Medication Instructions Recorded Amoxic-Pot Clav 875-125Mg 1 tab PO BID 7 Days #14 tab 11/14/22 [Augmentin 875-125] Allergies Allergy/AdvReac Type Severity Reaction Status Date / Time No Known Allergies Allergy Verified 11/21/22 09:48 Review of Systems ROS Statement: Those systems with pertinent positive or pertinent negative responses have been documented in the HPI. ROS Other: All systems not noted in ROS Statement are negative. Constitutional: Denies: fever Eyes: Denies: eye pain ENT: Denies: ear pain Respiratory: Denies: cough Cardiovascular: Denies: chest pain Endocrine: Denies: fatigue Gastrointestinal: Denies: abdominal pain Genitourinary: Denies: dysuria Musculoskeletal: Reports: as per HPI, arthralgia Past Medical History Past Medical History: Cancer, COPD, Hyperlipidemia, Hypertension, Thyroid Disorder Additional Past Medical History / Comment(s): hx skin cancer, possible tia, lose of vision lt eye, experiences shaking in hands, head and chin History of Any Multi-Drug Resistant Organisms: None Reported Past Surgical History: Cholecystectomy, Hernia Repair, Tubal Ligation Additional Past Surgical History / Comment(s): THYROIDECTOMY, varicose vein stripping Past Anesthesia/Blood Transfusion Reactions: No Reported Reaction Past Psychological History: Anxiety Smoking Status: Never smoker Past Alcohol Use History: None Reported Past Drug Use History: None Reported - Past Family History Mother Family Medical History: Diabetes Mellitus Father Family Medical History: Pneumonia Sister(s) Family Medical History: Cancer General Exam Limitations: no limitations General appearance: alert, in no apparent distress Head exam: Present: atraumatic Neck exam: Absent: tenderness Respiratory exam: Present: normal lung sounds bilaterally Cardiovascular Exam: Present: regular rate, normal rhythm GI/Abdominal exam: Present: soft. Absent: tenderness Left Hand Wrist exam: Present: full ROM (With discomfort), tenderness (Near The anatomical snuffbox), other (Distally extremity is neurovascularly intact). Absent: swelling, crepitus, erythema Neurological exam: Present: alert. Absent: motor sensory deficit Psychiatric exam: Present: normal affect, normal mood Skin exam: Present: normal color Course Vital Signs 11/21/22 11/21/22 09:43 10:15 Temperature 97.3 F L Pulse Rate 92 73 Respiratory 18 16 Rate Blood Pressure 84/51 O2 Sat by Pulse 94 L 95 Oximetry Procedures - Orthopedic Splinting/Casting Injury #1 Side: left Upper Extremity Injury Location: short arm, wrist Upper Extremity Immobilizer: volar splint Medical Decision Making - Medical Decision Making Was pt. sent in by a medical professional or institution (, [facility], [facility], urgent care, hospital, or long term...) When possible be specific @ -No Did you speak to anyone other than the patient for history (EMS, parent, family, police, friend...)? What history was obtained from this source @ -Daughters are present and helps provide history as patient is a poor historian Did you review nursing and triage notes (agree or disagree)? Why? @ -I reviewed and agree with nursing and triage notes Were old charts reviewed (outside hosp., previous admission, EMS record, old EKG, old radiological studies, urgent care reports/EKG's, long term records)? Report findings @ -No old charts were reviewed Differential Diagnosis (chest pain, altered mental status, abdominal pain women, abdominal pain men, vaginal bleeding, weakness, fever, dyspnea, syncope, headache, dizziness, GI bleed, back pain, seizure, CVA, palpatations, mental health)? @ -not applicable EKG interpreted by me (3pts min.). @ -As above X-rays interpreted by me (1pt min.). @ -X-ray left wrist shows severe degenerative disease CT interpreted by me (1pt min.). @ -None done U/S interpreted by me (1pt. min.). @ -None done What testing was considered but not performed or refused? (CT, X-rays, U/S, labs)? Why? @ -None What meds were considered but not given or refused? Why? @ -None Did you discuss the management of the patient with other professionals (professionals i.e. , PA, [facility]MAN, lab, RT, psych nurse, bilingual social worker, interlibrary loan specialist, teacher, wildlife conservation officer, employment evaluator/case manager)? Give summary @ -No Was smoking cessation discussed for >3mins.? @ -No Was critical care preformed (if so, how long)? @ -No Were there social determinants of health that impacted care today? How? (Homelessness, low income, unemployed, alcoholism, drug addiction, transp ortation, low edu. Level, literacy, decrease access to med. care, long term, rehab)? @ -No Was there de-escalation of care discussed even if they declined (Discuss DNR or withdrawal of care, Hospice)? DNR status @ -No What co-morbidities impacted this encounter? (DM, HTN, Smoking, COPD, CAD, Cancer, CVA, ARF, Chemo, Hep., AIDS, mental health diagnosis, sleep apnea, morbid obesity)? @ -None Was patient admitted / discharged? Hospital course, mention meds given and route, prescriptions, significant lab abnormalities, going to OR and other pertinent info. @ -Patient and family updated. Patient provided pain medication and splint. Patient will need follow-up. Patient is in hospice and recommended they follow up with hospice or primary care physician Undiagnosed new problem with uncertain prognosis? @ -No Drug Therapy requiring intensive monitoring for toxicity (Heparin, Nitro, Insulin, Cardizem)? @ -No Were any procedures done? @ -Splinting Diagnosis/symptom? @ -Wrist sprain Acute, or Chronic, or Acute on Chronic? @ -Acute Uncomplicated (without systemic symptoms) or Complicated (systemic symptoms)? @ -default Side effects of treatment? @ -No Exacerbation, Progression, or Severe Exacerbation? @ -No Poses a threat to life or bodily function? How? (Chest pain, USA, ND, pneumonia, PE, COPD, DKA, ARF, appy, cholecystitis, CVA, Diverticulitis, Homicidal, Suicidal, threat to staff... and all critical care pts) @ -No Disposition Clinical Impression: Wrist sprain Disposition: HOME SELF-CARE Condition: Stable Instructions (If sedation given, give patient instructions): Wrist Injury (ED) Additional Instructions: Please do follow-up with primary care physician, either with hospice for Dr. Santamaria in the next couple days for recheck. If symptoms continue consider orthopedic evaluation. Return for increased pain, fever, swelling, redness, worsening or change in symptoms or other concerns. [id number] Tylenol or Motrin or both if needed. Is patient prescribed a controlled substance at d/c from ED?: No Referrals: Dayday Santamaria MD [Primary Care Provider] - 1-2 days Time of Disposition: 11:10
[2022-11-21 10:16] VITALS: RESP 16
--- NOTE | 2022-11-21 10:48 | XR ---
EXAMINATION TYPE: XR wrist complete LT DATE OF EXAM: 11/21/2022 COMPARISON: None HISTORY: Pain TECHNIQUE: 4 view left wrist FINDINGS: No acute fractures are evident. There is advanced degenerative joint changes at the first c arpal metacarpal junction. Degenerative joint changes are within the wrist. There is mild diffuse sof t tissue swelling. Follow-up exams can be performed for continued pain from trauma. IMPRESSION: 1. Advanced degenerative changes greatest at the first carpal metacarpal junction. 2. No acute fractures identified. Follow-up can be performed as clinically indicated. 3. Mild diffuse soft tissue swelling
[2022-11-21 11:35] VITALS: BP 123/74; PULSE 67
== END 2022-11-21 11:35 | disposition home or self-care (01) ==
LOC: EC 09:26
DX: M25.532 Pain in left wrist (principal); I10 Essential (primary) hypertension; J44.9 Chronic obstructive pulmonary disease, unspecified; E78.5 Hyperlipidemia, unspecified; E07.9 Disorder of thyroid, unspecified; F41.9 Anxiety disorder, unspecified; Z79.82 Long term (current) use of aspirin; Z79.899 Other long term (current) drug therapy; Z79.890 Hormone replacement therapy; Z90.49 Acquired absence of other specified parts of digestive tract
CPT/HCPCS: 73110; 99283; 96372; 29125; J1885

== ENCOUNTER 2023-04-15 15:14 | Observation (INO) | payer MEDICARE, BC ==
--- NOTE | 2023-04-15 15:35 | ED ---
Altered Mental Status HPI - General Chief Complaint: Altered Mental Status Stated Complaint: AMS Time Seen by Provider: 04/15/23 15:17 Source: EMS Mode of arrival: EMS Limitations: altered mental status - History of Present Illness Initial Comments: This patient is an 87-year-old woman with history of dementia. The patient is not able to give any history and it FROM her daughter who is at the bedside. The patient's reportedly had an episode of diarrhea and then an episode of vomiting and then she was not responding verbally so patient's daughter called the hospice nurse who said that perhaps they should go to the emergency department. MD Complaint: altered mental status -: hour(s) Severity: moderate Context: other Associated Symptoms: nausea/vomiting - Related Data Home Medications Medication Instructions Recorded Confirmed FLUoxetine HCL [Fluoxetine HCl] 20 mg PO DAILY 01/14/14 04/15/23 Aspirin EC [Ecotrin Low Dose] 162 mg PO HS 09/13/16 04/15/23 Levothyroxine Sodium [Synthroid] 75 mcg PO DAILY 08/18/21 04/15/23 Omeprazole 20 mg PO HS 08/18/21 04/15/23 ALPRAZolam [Xanax] 0.5 mg PO BID 04/15/23 04/15/23 ALPRAZolam [Xanax] 0.5 mg PO Q4H PRN 04/15/23 04/15/23 Fluorometholone 0.1% Ophth Malena 1 drop BOTH EYES DAILY 04/15/23 04/15/23 [Fml] Nitrofurantoin Monohyd/M-Cryst 100 mg PO DAILY 04/15/23 04/15/23 [Macrobid] Allergies Allergy/AdvReac Type Severity Reaction Status Date / Time No Known Allergies Allergy Verified 04/15/23 16:55 Review of Systems ROS Statement: Those systems with pertinent positive or pertinent negative responses have been documented in the HPI. ROS Other: All systems not noted in ROS Statement are negative. Limitations: ROS unobtainable due to patients medical condition Constitutional: Denies: fever Respiratory: Denies: cough, dyspnea Gastrointestinal: Reports: vomiting, diarrhea Skin: Denies: rash Neurological: Denies: weakness Past Medical History Past Medical History: Cancer, COPD, Hyperlipidemia, Hypertension, Thyroid Diso rder Additional Past Medical History / Comment(s): hx skin cancer, possible tia, lose of vision lt eye, experiences shaking in hands, head and chin History of Any Multi-Drug Resistant Organisms: None Reported Past Surgical History: Cholecystectomy, Hernia Repair, Tubal Ligation Additional Past Surgical History / Comment(s): THYROIDECTOMY, varicose vein stripping Past Anesthesia/Blood Transfusion Reactions: No Reported Reaction Past Psychological History: Anxiety Smoking Status: Never smoker Past Alcohol Use History: None Reported Past Drug Use History: None Reported - Past Family History Mother Family Medical History: Diabetes Mellitus Father Family Medical History: Pneumonia Sister(s) Family Medical History: Cancer General Exam Limitations: altered mental status General appearance: alert Head exam: Present: atraumatic, normocephalic Eye exam: Present: normal appearance, PERRL, EOMI. Absent: scleral icterus, conjunctival injection ENT exam: Present: mucous membranes dry Neck exam: Present: normal inspection, full ROM. Absent: meningismus Respiratory exam: Present: normal lung sounds bilaterally. Absent: respiratory distress, wheezes, rales, rhonchi, stridor Cardiovascular Exam: Present: regular rate, normal rhythm, normal heart sounds. Absent: systolic murmur, diastolic murmur, rubs, gallop GI/Abdominal exam: Present: soft. Absent: distended, tenderness, guarding, rebound, mass Extremities exam: Present: normal inspection, normal capillary refill. Absent: pedal edema, calf tenderness Back exam: Present: normal inspection. Absent: CVA tenderness (R), CVA tenderness (L) Neurological exam: Present: alert, CN II-XII intact, other (The patient is not cooperative with the neurologic exam but does not display any focal motor or sensory deficits. She does speak some unintelligible words). Absent: oriented X3, motor sensory deficit Expanded Cranial nerves: EOM's Intact: Normal, Gag Reflex: Normal Motor strength exam: RUE: 5, LUE: 5, RLE: 5, LLE: 5 Eye Response: (4) open spontaneously Motor Response: (5) localizes to pain Verbal Response: (3) inappropriate words Skin exam: Present: warm, dry, intact, normal color. Absent: rash Course Vital Signs 04/15/23 04/15/23 04/15/23 15:15 16:30 18:00 Temperature 97.4 F L Pulse Rate 75 68 77 Respiratory 16 18 18 Rate Blood Pressure 185/97 181/99 213/85 O2 Sat by Pulse 96 93 L Oximetry 04/15/23 04/15/23 20:00 21:00 Temperature Pulse Rate 79 81 Respiratory 16 16 Rate Blood Pressure 190/98 186/99 O2 Sat by Pulse 96 95 Oximetry Medical Decision Making - Medical Decision Making Patient is a 87-year-old woman here with altered mental status. While the p atient was here seen by the hospice service. After discussion by them with the patient's daughter they would like to admit the patient for observation overnight and then ensure that this hospice care available at home. - Lab Data Result diagrams: 04/15/23 15:58 04/15/23 15:58 Lab Results 04/15/23 04/15/23 04/15/23 Range/Units 15:58 15:58 15:58 WBC 7.3 (3.8-10.6) k/uL RBC 3.39 L (3.80-5.40) m/uL Hgb 10.9 L (11.4-16.0) gm/dL Hct 33.0 L (34.0-46.0) % MCV 97.4 (80.0-100.0) fL MCH 32.2 (25.0-35.0) pg MCHC 33.0 (31.0-37.0) g/dL RDW 13.7 (11.5-15.5) % Plt Count 221 (150-450) k/uL MPV 8.3 Neutrophils % 74 % Lymphocytes % 18 % Monocytes % 5 % Eosinophils % 1 % Basophils % 0 % Neutrophils # 5.4 (1.3-7.7) k/uL Lymphocytes # 1.3 (1.0-4.8) k/uL Monocytes # 0.3 (0-1.0) k/uL Eosinophils # 0.1 (0-0.7) k/uL Basophils # 0.0 (0-0.2) k/uL PT 9.9 (9.0-12.0) sec INR 0.9 (<1.2) APTT 21.8 L (22.0-30.0) sec Sodium (137-145) mmol/L Potassium (3.5-5.1) mmol/L Chloride (98-107) mmol/L Carbon Dioxide (22-30) mmol/L Anion Gap mmol/L BUN (7-17) mg/dL Creatinine (0.52-1.04) mg/dL Est GFR (CKD-EPI)AfAm (>60 ml/min/1.73 sqM) Est GFR (CKD-EPI)NonAf (>60 ml/min/1.73 sqM) Glucose (74-99) mg/dL POC Glucose (mg/dL) (70-110) mg/dL POC Glu Oil Process Stillman ID Calcium (8.4-10.2) mg/dL Total Bilirubin (0.2-1.3) mg/dL AST (14-36) U/L ALT (4-34) U/L Alkaline Phosphatase (38-126) U/L Ammonia (<30) umol/L Troponin I (0.000-0.034) ng/mL Total Protein (6.3-8.2) g/dL Albumin (3.5-5.0) g/dL Urine Color Yellow Urine Appearance Clear (Clear) Urine pH 7.0 (5.0-8.0) Ur Specific Combes 1.009 (1.001-1.035) Urine Protein Trace H (Negative) Urine Glucose (UA) Trace H (Negative) Urine Ketones Negative (Negative) Urine Blood Negative (Negative) Urine Nitrite Negative (Negative) Urine Bilirubin Negative (Negative) Urine Urobilinogen <2.0 (<2.0) mg/dL Ur Leukocyte Esterase Negative (Negative) Urine Opiates Screen Not Detected (NotDetected) Ur Oxycodone Screen Not Detected (NotDetected) Urine Methadone Screen Not Detected (NotDetected) Ur Propoxyphene Screen Not Detected (NotDetected) Ur Barbiturates Screen Not Detected (NotDetected) U Tricyclic Antidepress Not Detected (NotDetected) Ur Phencyclidine Scrn Not Detected (NotDetected) Ur Amphetamines Screen Not Detected (NotDetected) U Methamphetamines Scrn Not Detected (NotDetected) U Benzodiazepines Scrn Detected H (NotDetected) Urine Cocaine Screen Not Detected (NotDetected) U Marijuana (THC) Screen Not Detected (NotDetected) 04/15/23 04/15/23 04/15/23 Range/Units 15:58 15:58 15:58 WBC (3.8-10.6) k/uL RBC (3.80-5.40) m/uL Hgb (11.4-16.0) gm/dL Hct (34.0-46.0) % MCV (80.0-100.0) fL MCH (25.0-35.0) pg MCHC (31.0-37.0) g/dL RDW (11.5-15.5) % Plt Count (150-450) k/uL MPV Neutrophils % % Lymphocytes % % Monocytes % % Eosinophils % % Basophils % % Neutrophils # (1.3-7.7) k/uL Lymphocytes # (1.0-4.8) k/uL Monocytes # (0-1.0) k/uL Eosinophils # (0-0.7) k/uL Basophils # (0-0.2) k/uL PT (9.0-12.0) sec INR (<1.2) APTT (22.0-30.0) sec Sodium 135 L (137-145) mmol/L Potassium 4.0 (3.5-5.1) mmol/L Chloride 102 (98-107) mmol/L Carbon Dioxide 23 (22-30) mmol/L Anion Gap 10 mmol/L BUN 25 H (7-17) mg/dL Creatinine 0.71 (0.52-1.04) mg/dL Est GFR (CKD-EPI)AfAm 88 (>60 ml/min/1.73 sqM) Est GFR (CKD-EPI)NonAf 76 (>60 ml/min/1.73 sqM) Glucose 138 H (74-99) mg/dL POC Glucose (mg/dL) (70-110) mg/dL POC Glu Oil Process Stillman ID Calcium 9.0 (8.4-10.2) mg/dL Total Bilirubin 0.5 (0.2-1.3) mg/dL AST 27 (14-36) U/L ALT 16 (4-34) U/L Alkaline Phosphatase 118 (38-126) U/L Ammonia <9 (<30) umol/L Troponin I <0.012 (0.000-0.034) ng/mL Total Protein 6.6 (6.3-8.2) g/dL Albumin 3.9 (3.5-5.0) g/dL Urine Color Urine Appearance (Clear) Urine pH (5.0-8.0) Ur Specific Combes (1.001-1.035) Urine Protein (Negative) Urine Glucose (UA) (Negative) Urine Ketones (Negative) Urine Blood (Negative) Urine Nitrite (Negative) Urine Bilirubin (Negative) Urine Urobilinogen (<2.0) mg/dL Ur Leukocyte Esterase (Negative) Urine Opiates Screen (NotDetected) Ur Oxycodone Screen (NotDetected) Urine Methadone Screen (NotDetected) Ur Propoxyphene Screen (NotDetected) Ur Barbiturates Screen (NotDetected) U Tricyclic Antidepress (NotDetected) Ur Phencyclidine Scrn (NotDetected) Ur Amphetamines Screen (NotDetected) U Methamphetamines Scrn (NotDetected) U Benzodiazepines Scrn (NotDetected) Urine Cocaine Screen (NotDetected) U Marijuana (THC) Screen (NotDetected) 04/15/23 Range/Units 16:46 WBC (3.8-10.6) k/uL RBC (3.80-5.40) m/uL Hgb (11.4-16.0) gm/dL Hct (34.0-46.0) % MCV (80.0-100.0) fL MCH (25.0-35.0) pg MCHC (31.0-37.0) g/dL RDW (11.5-15.5) % Plt Count (150-450) k/uL MPV Neutrophils % % Lymphocytes % % Monocytes % % Eosinophils % % Basophils % % Neutrophils # (1.3-7.7) k/uL Lymphocytes # (1.0-4.8) k/uL Monocytes # (0-1.0) k/uL Eosinophils # (0-0.7) k/uL Basophils # (0-0.2) k/uL PT (9.0-12.0) sec INR (<1.2) APTT (22.0-30.0) sec Sodium (137-145) mmol/L Potassium (3.5-5.1) mmol/L Chloride (98-107) mmol/L Carbon Dioxide (22-30) mmol/L Anion Gap mmol/L BUN (7-17) mg/dL Creatinine (0.52-1.04) mg/dL Est GFR (CKD-EPI)AfAm (>60 ml/min/1.73 sqM) Est GFR (CKD-EPI)NonAf (>60 ml/min/1.73 sqM) Glucose (74-99) mg/dL POC Glucose (mg/dL) 134 H (70-110) mg/dL POC Glu Oil Process Stillman ID October Calcium (8.4-10.2) mg/dL Total Bilirubin (0.2-1.3) mg/dL AST (14-36) U/L ALT (4-34) U/L Alkaline Phosphatase (38-126) U/L Ammonia (<30) umol/L Troponin I (0.000-0.034) ng/mL Total Protein (6.3-8.2) g/dL Albumin (3.5-5.0) g/dL Urine Color Urine Appearance (Clear) Urine pH (5.0-8.0) Ur Specific Combes (1.001-1.035) Urine Protein (Negative) Urine Glucose (UA) (Negative) Urine Ketones (Negative) Urine Blood (Negative) Urine Nitrite (Negative) Urine Bilirubin (Negative) Urine Urobilinogen (<2.0) mg/dL Ur Leukocyte Esterase (Negative) Urine Opiates Screen (NotDetected) Ur Oxycodone Screen (NotDetected) Urine Methadone Screen (NotDetected) Ur Propoxyphene Screen (NotDetected) Ur Barbiturates Screen (NotDetected) U Tricyclic Antidepress (NotDetected) Ur Phencyclidine Scrn (NotDetected) Ur Amphetamines Screen (NotDetected) U Methamphetamines Scrn (NotDetected) U Benzodiazepines Scrn (NotDetected) Urine Cocaine Screen (NotDetected) U Marijuana (THC) Screen (NotDetected) - EKG Data -: EKG Interpreted by Me EKG shows normal: sinus rhythm, axis (Normal), intervals (Normal), QRS complexes (Possible old inferior ID based on Q waves in leads 3 and aVF), ST-T waves (Normal) Rate: normal (Rate 67 bpm) Disposition Clinical Impression: Altered mental status Disposition: ADMITTED IP TO THIS HOSP Condition: Fair Is patient prescribed a controlled substance at d/c from ED?: No
--- NOTE | 2023-04-15 16:25 | XR ---
EXAMINATION TYPE: XR chest 1V portable DATE OF EXAM: 04/15/2023 HISTORY: Shortness of breath. COMPARISON: 11/18/2022 TECHNIQUE: Single view of the chest is submitted. FINDINGS: Demonstrated are scattered senescent parenchymal change. There is no evidence for focal infiltrate. Chronic elevation left hemidiaphragm is redemonstrated. Fi xed hiatal hernia seen. The heart is stable. Hilar and mediastinal structures are within normal limits. Degenerative changes are seen of the dorsal spine. IMPRESSION: 1. Chronic changes without evidence for acute pulmonary disease.
[2023-04-15 16:44] LABS: ALT 16 U/L (4-34); AST 27 U/L (14-36); African American GFR (CKD) 88 (>60 ml/min/1.73 sqM); Albumin 3.9 g/dL (3.5-5.0); Alkaline Phosphatase 118 U/L (38-126); Anion Gap 10 mmol/L; Appearance,Urine Clear (Clear); Basophils % (A) 0 %; Bilirubin,Urine Negative (Negative); Blood Urea Nitrogen 25 mg/dL (7-17); Blood,Urine Negative (Negative); Carbon Dioxide 23 mmol/L (22-30); Chloride 102 mmol/L (98-107); Color,Urine Yellow; Eosinophils # (A) 0.1 k/uL (0-0.7); Eosinophils % (A) 1 %; Glucose 138 mg/dL (74-99); Glucose,Urine (UA) Trace (Negative); HGB 10.9 gm/dL (11.4-16.0); Ketones,Urine Negative (Negative); Leukocyte Esterase,Urine Negative (Negative); Lymphocytes # (A) 1.3 k/uL (1.0-4.8); Lymphocytes % (A) 18 %; MCH 32.2 pg (25.0-35.0); MCV 97.4 fL (80.0-100.0); Mean Platelet Volume 8.3; Monocytes # (A) 0.3 k/uL (0-1.0); Monocytes % (A) 5 %; Neutrophils # (A) 5.4 k/uL (1.3-7.7); Neutrophils % (A) 74 %; Nitrite,Urine Negative (Negative); Non-African American GFR(CKD) 76 (>60 ml/min/1.73 sqM); Platelet Count 221 k/uL (150-450); Protein,Urine Trace (Negative); RBC 3.39 m/uL (3.80-5.40); RDW 13.7 % (11.5-15.5); Sodium 135 mmol/L (137-145); Specific Gravity,Urine 1.009 (1.001-1.035); Total Bilirubin 0.5 mg/dL (0.2-1.3); Total Protein 6.6 g/dL (6.3-8.2); Urobilinogen,Urine <2.0 mg/dL (<2.0); WBC 7.3 k/uL (3.8-10.6)
[2023-04-15 16:49] LABS: Glucose,Whole Blood 134 mg/dL (70-110)
[2023-04-15 16:52] LABS: Amphetamine Screen,Urine Not Detected (NotDetected); Barbiturate Screen,Urine Not Detected (NotDetected); Benzodiazepines Screen,Urine Detected (NotDetected); Cocaine Screen,Urine Not Detected (NotDetected); INR 0.9 (<1.2); Methadone Screen, Urine Not Detected (NotDetected); Opiate Screen,Urine Not Detected (NotDetected); Oxycodone Screen, Urine Not Detected (NotDetected); Phencyclidine Screen,Urine Not Detected (NotDetected); Prothrombin Time 9.9 sec (9.0-12.0); Tricyclic Antidepressant,Urine Not Detected (NotDetected); Urn Cannabinoid Scrn Not Detected (NotDetected)
[2023-04-15 16:55] LABS: Partial Thromboplastin Time 21.8 sec (22.0-30.0)
[2023-04-15] MEDS ORDERED: SODIUM CHLORIDE 0.9% 500 ML 500 ML IV STA (17:06)
[2023-04-15] MEDS ORDERED: ONDANSETRON 4 MG/2 ML VIAL IVP STA (18:00)
[2023-04-15] MEDS ORDERED: NALOXONE 0.4 MG/ML 1 ML VIAL IV PRN (18:55)
[2023-04-15] MEDS ORDERED: ACETAMINOPHEN TAB 325 MG TAB PO PRN (18:55)
[2023-04-15] MEDS ORDERED: METOPROLOL TARTRATE 12.5 MG TAB PO STA (20:31)
[2023-04-15] MEDS ORDERED: QUEtiapine 25 MG TAB PO PRN (22:17)
[2023-04-16] MEDS ORDERED: hydrALAZINE HCL 20 MG/ML 1 ML VIAL IVP PRN (09:16)
[2023-04-16 10:21] VITALS: RESP 17
--- NOTE | 2023-04-16 11:06 | CT ---
EXAMINATION TYPE: CT brain wo con DATE OF EXAM: 04/16/2023 COMPARISON: 11/10/2022 HISTORY: 87 year-old female altered mental status, confusion, hypertension TECHNIQUE: Examination was done in axial plane without intravenous contrast. Coronal and sagittal r econstructions performed. CT DLP: 1191.6 mGycm Automated exposure control for dose reduction was used. FINDINGS: There is a very large intraparenchymal bleed measuring up to 8.2 cm involving the left parieto-occipi melinda lobes. Associated vasogenic edema and diffuse sulcal effacement along the left cerebrum. There is mass effect with flattening of the left lateral ventricle and 6 mm of rightward midline shift. There is early left-sided uncal herniation and suspected rightward subfalcine herniation. We suspect that the bleed has broken into the ventricular system. Layering blood is present within th e right occipital horn and also within the fourth ventricle. Scattered subarachnoid blood is present posteriorly on the right. Paranasal sinuses and mastoid air cells well pneumatized. Orbits and globes are intact. IMPRESSION: 1. Large intraparenchymal hematoma measuring up to 8.2 cm involving the left parietal and occipital l obes. Associated vasogenic edema with diffuse left-sided sulcal effacement, flattening of the left la teral ventricle, and 6 mm of rightward midline shift. Early left-sided uncal herniation and early rig htward subfalcine herniation. 2. Acute hemorrhage has broken into the ventricular system and is seen layering within the right late ral ventricle as well as the fourth ventricle. Additional scattered acute subarachnoid hemorrhage pos teriorly on the right. Critical findings called to nurse Dolan at [facility] inpatient at 11:00 AM.
[2023-04-16 12:14] VITALS: BMI 16.9
[2023-04-16 12:26] VITALS: BP 198/69; PULSE 78; TEMP 97.7
--- NOTE | 2023-04-16 15:20 | HP ---
HISTORY AND PHYSICAL CHIEF COMPLAINT: Change in mental status. HISTORY OF PRESENT ILLNESS: This 87-year-old woman was on hospice care for apparent dementia, was noted to have episodes of diarrhea, vomiting, and also some headache. The patient also had preference of the gait towards left. CT scan of the brain showed large intraparenchymal hematoma of the left parietal occipital lobe. Discussion was held with the family and at this time the patient's family would like to continue with inpatient hospice. Detailed history cannot be taken from the patient because the patient is comatose. PAST MEDICAL HISTORY: Reviewed include dementia, rest of the history and rest of the chart is also reviewed. HOME MEDICATIONS: Reviewed include levothyroxine, rest of the dose and rest of the medications noted. ALLERGIES: Unknown. FAMILY HISTORY, SOCIAL HISTORY, REVIEW OF SYSTEMS: Could not be taken. PHYSICAL EXAMINATION: VITAL SIGNS: Pulse is 78, blood pressure ntd, respirations 17. HEENT: Conjunctive normal, otherwise conjugate gaze deviation to the left present. CARDIOVASCULAR: S1, S2. RESPIRATIONS: Few scattered rhonchi and crackles. ABDOMEN: Soft, nontender. LEGS: No edema. No swelling. NERVOUS SYSTEM: Could not be examined. SKIN: No ulcer, rash, bleeding. JOINTS: No active deforming arthropathy. Labs reviewed, CAT scan reviewed personally otherwise. ASSESSMENT: 1. Acute left intraparenchymal cerebral hemorrhage with coma and conjugate deviation to the left. 2. Dementia. 3. Chronic obstructive pulmonary disease. 4. Hypertension. 5. Hyperlipidemia. 6. Multiple medications. 8. Hospice care. RECOMMENDATIONS AND DISCUSSION: This 87-year-old woman presented with multiple complex medical issues. I recommended to continue current management, continue symptomatic treatment, recommend comfort measures with hospice with morphine p.r.n. or even morphine drip. The patient became more agitated or restless. Otherwise, prognosis extremely guarded and I have discussed the diagnosis and with the patient's family at length. MMODL / IJN: [id number] / RICHARD
--- NOTE | 2023-04-16 16:01 | P.DS ---
Providers Date of admission: 04/15/23 18:55 Expected date of discharge: 04/16/23 Attending physician: Blanca Steven Primary care physician: [facility] Course: Final diagnosis Acute altered mental status secondary to acute left intraparenchymal cerebral hemorrhage with coma and conjugate deviation to the left Advanced dementia history Chronic obstructive pulmonary disease, not an exacerbation Hypertension Hyperlipidemia Muscle wasting No code Discharge disposition Patient is being transferred to [facility] services as patient met criteria. Patient to continue with comfort measures and daily evaluation by [facility] nurses. Total time taken is greater than 35 minutes. Hospital course This is a 87-year-old female who was recently admitted with acute altered mental status with advanced dementia was on hospice outpatient although scheduled to be discharged as she was doing relatively well. Per family patient stopped eating and had sudden onset of nausea and vomiting with extreme headache and brought here for evaluation found to be hypertensive. Patient was admitted with hospice on consult. Patient underwent CT brain which showed a large intraparenchymal cerebral hemorrhage with midline shift noted. Family met with [facility] and meeting [facility] criteria and is being transitioned to comfort measures only. Being started on morphine IV push along with Ativan and scopolamine. [facility] to follow daily and would suggest morphine drip if patient deteriorates any further. 87-year-old female who is alert and oriented 0 minimally responsive, thin built, elderly appearing Physical exam: Gen: This is a 87-year-old female who is alert and oriented 0 minimally responsive, thin built, elderly appearing HEENT: Head is atraumatic, normocephalic. Pupils equal, round. Sclerae is anic teric. NECK: Supple. No JVD. No lymphadenopathy. No thyromegaly. LUNGS: Clear to auscultation. No wheezes or rhonchi. No intercostal retractions. HEART: Regular rate and rhythm. No murmur. ABDOMEN: Soft. Bowel sounds are present. No masses. No tenderness. EXTREMITIES: No pedal edema. No calf tenderness. NEUROLOGICAL: Patient is minimally responsive, left-sided deviation, alert and oriented x0. Please refer to medication reconciliation sheet for a list of medications. The impression and plan of care has been dictated by Candida Prince, Nurse Practitioner as directed. Dr. Maurizio MD I have performed a history and examination and MDM of this patient, discussed the same with the dictator, and agree with the dictator's assessment and plan as written ,documented as a scribe. Based on total visit time, I have performed more than 50% of the visit. Patient Condition at Discharge: Poor Plan - Discharge Summary Discharge Rx Participant: Yes New Discharge Prescriptions: Continue ALPRAZolam [Xanax] 0.5 mg PO Q4H PRN PRN Reason: Anxiety Levothyroxine Sodium [Synthroid] 75 mcg PO DAILY Omeprazole 20 mg PO HS Fluorometholone 0.1% Ophth Malena [Fml] 1 drop BOTH EYES DAILY ALPRAZolam [Xanax] 0.5 mg PO BID Discontinued FLUoxetine HCL [Fluoxetine HCl] 20 mg PO DAILY Aspirin EC [Ecotrin Low Dose] 162 mg PO HS Nitrofurantoin Monohyd/M-Cryst [Macrobid] 100 mg PO DAILY Discharge Medication List Levothyroxine Sodium [Synthroid] 75 mcg PO DAILY 08/18/21 [History] Omeprazole 20 mg PO HS 08/18/21 [History] ALPRAZolam [Xanax] 0.5 mg PO BID 04/15/23 [History] ALPRAZolam [Xanax] 0.5 mg PO Q4H PRN 04/15/23 [History] Fluorometholone 0.1% Ophth Malena [Fml] 1 drop BOTH EYES DAILY 04/15/23 [History] Follow up Appointment(s)/Referral(s): Dayday Santamaria MD [Primary Care Provider] - 1-2 days Discharge Disposition: DISCH TO [facility]
== END 2023-04-16 14:21 | disposition hospice, inpatient (51) ==
LOC: EC 15:14 → 5NMEDONC 18:55
PROVIDERS: ADMIT Hospitalist; ATTEND Hospitalist
DX: I61.8 Other nontraumatic intracerebral hemorrhage (principal); R40.2A Nontraumatic coma due to underlying condition; F03.90 Unspecified dementia, unspecified severity, without behavioral disturbance, psychotic disturbance, mood disturbance, and anxiety; I60.9 Nontraumatic subarachnoid hemorrhage, unspecified; M62.50 Muscle wasting and atrophy, not elsewhere classified, unspecified site; I10 Essential (primary) hypertension; J44.9 Chronic obstructive pulmonary disease, unspecified; E78.5 Hyperlipidemia, unspecified; E89.0 Postprocedural hypothyroidism; H54.62 Unqualified visual loss, left eye, normal vision right eye; F41.9 Anxiety disorder, unspecified; Z79.890 Hormone replacement therapy; Z79.82 Long term (current) use of aspirin; Z79.899 Other long term (current) drug therapy; Z90.49 Acquired absence of other specified parts of digestive tract; Z85.828 Personal history of other malignant neoplasm of skin; Z98.51 Tubal ligation status; Z83.3 Family history of diabetes mellitus; Z80.9 Family history of malignant neoplasm, unspecified
CPT/HCPCS: 96361; 96374; 99285; 93005; 80053; 82140; 84484; 85025; 85610; 85730; 81003; 80306; 71045; 70450; G0378 ×2; J2405; 36415

== ENCOUNTER 2023-04-16 13:31 | Inpatient (IN) | payer MEDICAID ==
[2023-04-16] MEDS ORDERED: HALOPERIDOL LACTATE 5 MG/ML 1 ML VIAL IM PRN (13:57)
[2023-04-16] MEDS ORDERED: ONDANSETRON 4 MG/2 ML VIAL IVP PRN (13:57)
[2023-04-16] MEDS ORDERED: ACETAMINOPHEN SUPPOSITORY 650 MG SUPP RECTAL PRN (13:57)
[2023-04-16] MEDS: LORazepam 2 MG/ML INJ IV SCH ×3 (15:57→20:08)
--- NOTE | 2023-04-16 15:57 | P.HPIM ---
History of Present Illness H&P Date: 04/16/23 This is a 87-year-old female who presented to the emergency department with having an intense headache with episodes of diarrhea vomiting and hypertension with acute altered mentation. Patient was admitted and had been on hospice although doing relatively well in the outpatient setting and was scheduled for discharge from hospice to [facility] and developed the sudden onset of confusion with significant history of advanced dementia. On this morning's evaluation patient was extremely hypertensive and appeared to be choking on medications and food with left gaze that was fixed. Brain CT was done which showed a large intraparenchymal hematoma of the left parietal-occipital lobe with midline shift noted. Family at bedside and again met with [facility] to continue services and is meeting GIP criteria. Patient will be initiated on comfort measures and not quite morphine drip as of yet. [facility] to follow daily and monitor for clinical decline. Review Of Systems: Unable to assess as patient is nonverbal and minimally responsive PHYSICAL EXAMINATION: GENERAL: The patient is asleep alert and oriented 0, thin built, elderly HEENT: Pupils are round and equally reacting to light. EOMI. no scleral icterus. No conjunctival pallor. Normocephalic, atraumatic. No pharyngeal erythema. No thyromegaly. CARDIOVASCULAR: S1 and S2 muffled PULMONARY: diminished breath sounds bilaterally with no wheezing or rhonchi noted. ABDOMEN: soft. Nontender on exam. Thin, scaphoid. non-distended, normoactive bowel sounds. No palpable organomegaly. MUSCULOSKELETAL: No joint swelling or deformity. EXTREMITIES: No cyanosis, clubbing, or pedal edema. NEUROLOGICAL: Left-sided gaze fixed, not following any commands. Significant muscle wasting noted SKIN: No rashes. Assessment: Acute altered mental status secondary to acute left intraparenchymal cerebral hemorrhage with coma and conjugate deviation to the left Advanced dementia history Chronic obstructive pulmonary disease, not an exacerbation Hypertension Hyperlipidemia Muscle wasting No code Plan: Patient was seen and evaluated with hospice and had been outpatient on hospice actually scheduled to be discharged today as she was doing relatively well Family reports patient had massive headache and acute altered mentation with confusion and not acting her normal self brought here for evaluation found to be hypertensive and was admitted for evaluation with [facility] on consult Patient underwent CT brain showing significant intraparenchymal cerebral hemorrhage with midline shift and reevaluated by hospice meeting GIP criteria and being started on comfort measures Patient is placed on IV push morphine, scopolamine, and Ativan as needed and if patient deteriorates would recommend morphine drip for comfort measures. Overall prognosis is extremely poor and guarded at this time. [facility] to follow and evaluate daily The impression and plan of care has been dictated by Candida Prince, nurse practitioner as directed. Dr. Maurizio MD I have performed a history and examination and MDM of this patient, discussed the same with the dictator, and agree with the dictator's assessment and plan as written ,documented as a scribe. Based on total visit time, I have performed more than 50% of the visit. Any additional findings or plans will be noted. Past Medical History Past Medical History: Cancer, COPD, Hyperlipidemia, Hypertension, Thyroid Disorder Additional Past Medical History / Comment(s): hx skin cancer, possible tia, lose of vision lt eye, experiences shaking in hands, head and chin History of Any Multi-Drug Resistant Organisms: None Reported Past Surgical History: Cholecystectomy, Hernia Repair, Tubal Ligation Additional Past Surgical History / Comment(s): THYROIDECTOMY, varicose vein stripping Past Anesthesia/Blood Transfusion Reactions: No Reported Reaction Past Psychological History: Anxiety Smoking Status: Never smoker Past Alcohol Use History: None Reported Past Drug Use History: None Reported - Past Family History Mother Family Medical History: Diabetes Mellitus Father Family Medical History: Pneumonia Sister(s) Family Medical History: Cancer Medications and Allergies Home Medications Medication Instructions Recorded Confirmed Type Levothyroxine Sodium [Synthroid] 75 mcg PO DAILY 08/18/21 04/15/23 History Omeprazole 20 mg PO HS 08/18/21 04/15/23 History ALPRAZolam [Xanax] 0.5 mg PO BID 04/15/23 04/15/23 History ALPRAZolam [Xanax] 0.5 mg PO Q4H PRN 04/15/23 04/15/23 History Fluorometholone 0.1% Ophth Malena 1 drop BOTH EYES DAILY 04/15/23 04/15/23 History [Fml] Allergies Allergy/AdvReac Type Severity Reaction Status Date / Time No Known Allergies Allergy Verified 04/15/23 16:55 Physical Exam Vitals: Intake and Output 04/16/23 04/16/23 04/16/23 06:59 14:59 22:59 Other: Weight 46 kg
[2023-04-16] MEDS: SCOPOLAMINE 1 MG/72 HR PATCH TRANSDERM SCH (15:58)
[2023-04-16] MEDS: MORPHINE SULFATE 2 MG/ML SYRINGE IV SCH ×3 (15:58→20:10)
[2023-04-17] MEDS: LORazepam 2 MG/ML INJ IV SCH ×6 (00:14→20:14)
[2023-04-17] MEDS: MORPHINE SULFATE 2 MG/ML SYRINGE IV SCH ×6 (00:15→20:12)
[2023-04-17 08:50] VITALS: BMI 16.9
--- NOTE | 2023-04-17 22:38 | PN ---
PROGRESS NOTE DATE OF SERVICE: 04/17/2023 SUBJECTIVE: This is an 87-year-old woman, who was admitted with acute intracerebral hemorrhage, is being closely monitored. The patient is on hospice care. The patient is sedated. OBJECTIVE: VITAL SIGNS: Pulse 65, blood pressure 140/86, respirations 15. CHEST: Clear to auscultation. CARDIOVASCULAR: S1, S2. ABDOMEN: Soft. NERVOUS SYSTEM: Unresponsive. LABORATORY DATA: Not available. ASSESSMENT: 1. Acute left intraparenchymal cerebral hemorrhage with conjugate deviation to the left. 2. Advanced dementia. 3. Chronic obstructive pulmonary disease. 4. Hypertension. 5. Hyperlipidemia. RECOMMENDATIONS: Recommend to continue current management and continue symptomatic treatment. Otherwise, at this time, I recommend continue with hospice care. Prognosis guarded. Further recommendations to follow. MMODL / IJN: [id number] /
[2023-04-18] MEDS: MORPHINE SULFATE 2 MG/ML SYRINGE IV SCH ×6 (00:23→20:41)
[2023-04-18] MEDS: LORazepam 2 MG/ML INJ IV SCH ×6 (00:23→20:43)
--- NOTE | 2023-04-18 23:14 | PN ---
PROGRESS NOTE DATE OF SERVICE: 04/18/2023 SUBJECTIVE: This is an 87-year-old woman, who was admitted after left intraparenchymal cerebral hemorrhage, in the hospice care. The patient is sedated. The patient is comfortable. OBJECTIVE: VITAL SIGNS: Pulse 65, blood pressure 160/82, respirations 15. CHEST: Clear to auscultation. ABDOMEN: Soft, nontender. NERVOUS SYSTEM: Unresponsive. LABORATORY DATA: Not available. ASSESSMENT: 1. Acute left intraparenchymal cerebral hemorrhage with conjugate gaze deviation to the left. 2. Advanced dementia. 3. Chronic obstructive pulmonary disease. 4. Hypertension. 5. Hyperlipidemia. 6. No code, no CPR, no vent. 7. Hospice care. RECOMMENDATIONS: Recommend to continue current medications, continue symptomatic treatment. Otherwise, continue with hospice care. Prognosis guarded. Discussed with family. Further recommendations to follow. GUZMAN / LA: [id number] /
[2023-04-19] MEDS: MORPHINE SULFATE 2 MG/ML SYRINGE IV SCH ×6 (00:11→20:41)
[2023-04-19] MEDS: LORazepam 2 MG/ML INJ IV SCH ×6 (00:11→20:41)
--- NOTE | 2023-04-19 12:38 | PN ---
PROGRESS NOTE DATE OF SERVICE: 04/19/2023 SUBJECTIVE: This is an 87-year-old woman, who was admitted with intracranial hemorrhage, also had baseline dementia. The patient is on hospice and comfort measures. The patient is sedated. P.r.n. Ativan has been ordered. PAST MEDICAL HISTORY: Reviewed. PHYSICAL EXAMINATION: VITAL SIGNS: Pulse is 69, blood pressure 160/70, respirations 16. NERVOUS SYSTEM: The patient is unresponsive. SKIN: No ulcer, rash, or bleeding. LABORATORY DATA: Not available. ASSESSMENT: 1. Acute left intraparenchymal cerebral hemorrhage with conjugate gaze deviation to the left. 2. Advanced dementia. 3. Chronic obstructive pulmonary disease. 4. Hypertension. 5. Hyperlipidemia. 6. No code. No CPR. No vent. 7. Hospice care. RECOMMENDATIONS: Recommend to continue current medications, continue symptomatic treatment. Continue with hospice care. The prognosis is extremely guarded, which again was discussed with multiple members of the family. Further recommendations to follow. MMGETACHEWL / IJN: [id number] /
[2023-04-19] MEDS: SCOPOLAMINE 1 MG/72 HR PATCH TRANSDERM SCH (16:13)
[2023-04-20] MEDS: LORazepam 2 MG/ML INJ IV SCH ×6 (00:28→20:45)
[2023-04-20] MEDS: MORPHINE SULFATE 2 MG/ML SYRINGE IV SCH ×6 (00:28→20:44)
[2023-04-21] MEDS: MORPHINE SULFATE 2 MG/ML SYRINGE IV SCH ×6 (00:35→21:16)
[2023-04-21] MEDS: LORazepam 2 MG/ML INJ IV SCH ×6 (00:35→21:17)
--- NOTE | 2023-04-21 06:36 | P.PN ---
Subjective Progress Note Date: 04/20/23 This is a 87-year-old female who presented to the emergency department with having an intense headache with episodes of diarrhea vomiting and hypertension with acute altered mentation. Patient was admitted and had been on hospice although doing relatively well in the outpatient setting and was scheduled for discharge from hospice to [facility] and developed the sudden onset of confusion with significant history of advanced dementia. On this morning's evaluation patient was extremely hypertensive and appeared to be choking on medications and food with left gaze that was fixed. Brain CT was done which showed a large intraparenchymal hematoma of the left parietal-occipital lobe with midline shift noted. Family at bedside and again met with [facility] to continue services and is meeting GIP criteria. Patient will be initiated on comfort measures and not quite morphine drip as of yet. [facility] to follow daily and monitor for clinical decline. 04/20/2023 Patient seen and evaluated in follow-up today maintained on IV push morphine as needed Ativan with [facility] following closely. Patient appears comfortable at this time with family members present. We'll continue to follow along and make adjustments accordingly if needed. Review Of Systems: Unable to assess as patient is nonverbal and minimally responsive PHYSICAL EXAMINATION: GENERAL: The patient is asleep alert and oriented 0, thin built, elderly HEENT: Pupils are round and equally reacting to light. EOMI. no scleral icterus. No conjunctival pallor. Normocephalic, atraumatic. No pharyngeal erythema. No thyromegaly. CARDIOVASCULAR: S1 and S2 muffled PULMONARY: diminished breath sounds bilaterally with no wheezing or rhonchi noted. ABDOMEN: soft. Nontender on exam. Thin, scaphoid. non-distended, normoactive bowel sounds. No palpable organomegaly. MUSCULOSKELETAL: No joint swelling or deformity. EXTREMITIES: No cyanosis, clubbing, or pedal edema. NEUROLOGICAL: Left-sided gaze fixed, not following any commands. Significant muscle wasting noted SKIN: No rashes. Assessment: Acute altered mental status secondary to acute left intraparenchymal cerebral hemorrhage with coma and conjugate deviation to the left Advanced dementia history Chronic obstructive pulmonary disease, not an exacerbation Hypertension Hyperlipidemia Muscle wasting No code Plan: Patient was seen and evaluated with hospice and had been outpatient on hospice actually scheduled to be discharged today as she was doing relatively well Family reports patient had massive headache and acute altered mentation with confusion and not acting her normal self brought here for evaluation found to be hypertensive and was admitted for evaluation with [facility] on consult. Patient not GIP criteria and was transitioned to inpatient hospice Patient underwent CT brain showing significant intraparenchymal cerebral hemorrhage with midline shift and reevaluated by hospice meeting GIP criteria and being started on comfort measures Patient is placed on IV push morphine, scopolamine, and Ativan as needed Overall prognosis is extremely poor and guarded at this time. [facility] to follow and evaluate daily The impression and plan of care has been dictated by Candida Prince, nurse practitioner as directed. Dr. Sheri ROACH I have performed a history and examination and MDM of this patient, discussed the same with the dictator, and agree with the dictator's assessment and plan as written ,documented as a scribe. Based on total visit time, I have performed more than 50% of the visit. Any additional findings or plans will be noted. Objective - Vital Signs Vital signs: Vital Signs Temp 99.6 F 04/17/23 08:00 Pulse 65 04/19/23 20:00 Resp 16 04/19/23 20:00 BP 162/75 04/18/23 12:45 Pulse Ox 90 L 04/18/23 12:45 FiO2 Intake & Output 04/19/23 04/19/23 04/20/23 06:59 18:59 06:59 Intake Total 0 0 Output Total 600 0 Balance -600 0 0 Intake: Oral 0 0 Output: Urine 600 0 Other: Voiding Method Indwelling Catheter Indwelling Catheter Indwelling Catheter
--- NOTE | 2023-04-22 01:10 | P.PN ---
Subjective Progress Note Date: 04/21/23 This is a 87-year-old female who presented to the emergency department with having an intense headache with episodes of diarrhea vomiting and hypertension with acute altered mentation. Patient was admitted and had been on hospice although doing relatively well in the outpatient setting and was scheduled for discharge from hospice to [facility] and developed the sudden onset of confusion with significant history of advanced dementia. On this morning's evaluation patient was extremely hypertensive and appeared to be choking on medications and food with left gaze that was fixed. Brain CT was done which showed a large intraparenchymal hematoma of the left parietal-occipital lobe with midline shift noted. Family at bedside and again met with [facility] to continue services and is meeting GIP criteria. Patient will be initiated on comfort measures and not quite morphine drip as of yet. [facility] to follow daily and monitor for clinical decline. 04/20/2023 Patient seen and evaluated in follow-up today maintained on IV push morphine as needed Ativan with [facility] following closely. Patient appears comfortable at this time with family members present. We'll continue to follow along and make adjustments accordingly if needed. 04/21/2023 Patient is seen this morning continues on IV push morphine as well as Ativan with no significant changes. Patient is unresponsive and being followed closely by [facility]. Patient appears comfortable at this time. Will adjust medications as needed. Review Of Systems: Unable to assess as patient is nonverbal and unresponsive PHYSICAL EXAMINATION: GENERAL: The patient is asleep alert and oriented 0, thin built, elderly HEENT: Pupils are round and equally reacting to light. EOMI. no scleral icterus. No conjunctival pallor. Normocephalic, atraumatic. No pharyngeal erythema. No thyromegaly. Dry mucous membranes CARDIOVASCULAR: S1 and S2 muffled PULMONARY: diminished breath sounds bilaterally with no wheezing or rhonchi noted. ABDOMEN: soft. Nontender on exam. Thin, scaphoid. non-distended, hypoactive bowel sounds. No palpable organomegaly. MUSCULOSKELETAL: No joint swelling or deformity. EXTREMITIES: No cyanosis, clubbing, or pedal edema. NEUROLOGICAL: Unresponsive. Significant muscle wasting noted SKIN: No rashes. Assessment: Acute altered mental status secondary to acute left intraparenchymal cerebral hemorrhage with coma and conjugate deviation to the left Advanced dementia history Chronic obstructive pulmonary disease, not an exacerbation Hypertension Hyperlipidemia Muscle wasting No code Plan: Patient is being followed by [facility] GIP criteria maintained on IV push morphine as well as Ativan and appears comfortable. Hospice to follow daily and family is at bedside Continue comfort measures and adjust medications accordingly Patient is continued on IV push morphine, scopolamine, and Ativan as needed Overall prognosis is extremely poor and guarded at this time. [facility] to follow and evaluate daily The impression and plan of care has been dictated by Candida Prince, nurse practitioner as directed. Dr. Sheri ROACH I have performed a history and examination and MDM of this patient, discussed the same with the dictator, and agree with the dictator's assessment and plan as written ,documented as a scribe. Based on total visit time, I have performed more than 50% of the visit. Any additional findings or plans will be noted. Objective - Vital Signs Vital signs: Vital Signs Temp 99.6 F 04/17/23 08:00 Pulse 69 04/21/23 08:55 Resp 16 04/21/23 20:00 BP 162/75 04/18/23 12:45 Pulse Ox 90 L 04/18/23 12:45 FiO2 Intake & Output 04/21/23 04/21/23 04/22/23 06:59 18:59 06:59 Intake Total 0 0 0 Output Total 50 500 Balance -50 -500 0 Intake: Oral 0 0 0 Output: Urine 50 500 Other: Voiding Method Indwelling Catheter Indwelling Catheter Indwelling Catheter
[2023-04-22] MEDS: MORPHINE SULFATE 2 MG/ML SYRINGE IV SCH ×6 (01:14→20:45)
[2023-04-22] MEDS: LORazepam 2 MG/ML INJ IV SCH ×6 (01:15→20:46)
[2023-04-22] MEDS: SCOPOLAMINE 1 MG/72 HR PATCH TRANSDERM SCH (17:19)
[2023-04-23] MEDS: LORazepam 2 MG/ML INJ IV SCH ×5 (00:09→16:14)
[2023-04-23] MEDS: MORPHINE SULFATE 2 MG/ML SYRINGE IV SCH ×4 (00:09→11:59)
--- NOTE | 2023-04-23 05:21 | P.PN ---
Subjective Progress Note Date: 04/22/23 This is a 87-year-old female who presented to the emergency department with having an intense headache with episodes of diarrhea vomiting and hypertension with acute altered mentation. Patient was admitted and had been on hospice although doing relatively well in the outpatient setting and was scheduled for discharge from hospice to [facility] and developed the sudden onset of confusion with significant history of advanced dementia. On this morning's evaluation patient was extremely hypertensive and appeared to be choking on medications and food with left gaze that was fixed. Brain CT was done which showed a large intraparenchymal hematoma of the left parietal-occipital lobe with midline shift noted. Family at bedside and again met with [facility] to continue services and is meeting GIP criteria. Patient will be initiated on comfort measures and not quite morphine drip as of yet. [facility] to follow daily and monitor for clinical decline. 04/20/2023 Patient seen and evaluated in follow-up today maintained on IV push morphine as needed Ativan with [facility] following closely. Patient appears comfortable at this time with family members present. We'll continue to follow along and make adjustments accordingly if needed. 04/21/2023 Patient is seen this morning continues on IV push morphine as well as Ativan with no significant changes. Patient is unresponsive and being followed closely by [facility]. Patient appears comfortable at this time. Will adjust medications as needed. 04/22/2023 Patient is seen this morning with multiple family members at bedside and remains to appear comfortable. Breathing has become more shallow and patient remains unresponsive. Patient is scheduled morphine as well as Ativan and scopolamine. Breath sounds are diminished although clear and is having more periods of apnea noted. Any questions or concerns were addressed with family at bedside. [facility] following. Review Of Systems: Unable to assess as patient is nonverbal and unresponsive PHYSICAL EXAMINATION: GENERAL: The patient is asleep alert and oriented 0, thin built, elderly HEENT: Pupils are round and equally reacting to light. EOMI. no scleral icterus. No conjunctival pallor. Normocephalic, atraumatic. No pharyngeal erythema. No thyromegaly. Dry mucous membranes CARDIOVASCULAR: S1 and S2 muffled PULMONARY: diminished breath sounds bilaterally with no wheezing or rhonchi noted. Respirations 8 per minute ABDOMEN: soft. Nontender on exam. Thin, scaphoid. non-distended, hypoactive bowel sounds. No palpable organomegaly. MUSCULOSKELETAL: No joint swelling or deformity. EXTREMITIES: No cyanosis, clubbing, or pedal edema. NEUROLOGICAL: Unresponsive. Significant muscle wasting noted SKIN: No rashes. Assessment: Acute altered mental status secondary to acute left intraparenchymal cerebral hemorrhage with coma and conjugate deviation to the left Advanced dementia history Chronic obstructive pulmonary disease, not an exacerbation Hypertension Hyperlipidemia Muscle wasting No code Plan: Patient is being followed by [facility] GIP criteria maintained on IV push morphine as well as Ativan and appears comfortable. Hospice to follow daily and family is at bedside Continue comfort measures and adjust medications accordingly Patient is continued on IV push morphine, scopolamine, and Ativan as needed Overall prognosis is extremely poor and guarded at this time. [facility] to follow and evaluate daily The impression and plan of care has been dictated by Candida Prince, nurse practitioner as directed. Dr. Sheri ROACH I have performed a history and examination and MDM of this patient, discussed the same with the dictator, and agree with the dictator's assessment and plan as written ,documented as a scribe. Based on total visit time, I have performed more than 50% of the visit. Any additional findings or plans will be noted. Objective - Vital Signs Vital signs: Vital Signs Temp 99.6 F 04/17/23 08:00 Pulse 108 H 04/22/23 19:02 Resp 20 04/22/23 19:02 BP 103/67 04/22/23 19:02 Pulse Ox 88 L 04/22/23 19:02 FiO2 Intake & Output 04/22/23 04/22/23 04/23/23 06:59 18:59 06:59 Intake Total 0 0 0 Output Total 150 300 0 Balance -150 -300 0 Intake: Oral 0 0 0 Output: Urine 150 300 0 Other: Voiding Method Indwelling Catheter Indwelling Catheter Indwelling Catheter # Voids 0 # Bowel Movements 0
[2023-04-23 11:56] VITALS: BP 88/62; PULSE 116; RESP 16; TEMP 103.7
[2023-04-23] MEDS ORDERED: MORPHINE SULFATE 2 MG/ML SYRINGE IV PRN (12:48)
[2023-04-23] MEDS ORDERED: MORPHINE SULFATE (100 MG/2 ML) 100 MG in SODIUM CHLORIDE 0.9% 100 ML IV SCH (13:30)
--- NOTE | 2023-04-23 20:56 | P.PN ---
Subjective Progress Note Date: 04/23/23 This is a 87-year-old female who presented to the emergency department with having an intense headache with episodes of diarrhea vomiting and hypertension with acute altered mentation. Patient was admitted and had been on hospice although doing relatively well in the outpatient setting and was scheduled for discharge from hospice to [facility] and developed the sudden onset of confusion with significant history of advanced dementia. On this morning's evaluation patient was extremely hypertensive and appeared to be choking on medications and food with left gaze that was fixed. Brain CT was done which showed a large intraparenchymal hematoma of the left parietal-occipital lobe with midline shift noted. Family at bedside and again met with [facility] to continue services and is meeting GIP criteria. Patient will be initiated on comfort measures and not quite morphine drip as of yet. [facility] to follow daily and monitor for clinical decline. 04/20/2023 Patient seen and evaluated in follow-up today maintained on IV push morphine as needed Ativan with [facility] following closely. Patient appears comfortable at this time with family members present. We'll continue to follow along and make adjustments accordingly if needed. 04/21/2023 Patient is seen this morning continues on IV push morphine as well as Ativan with no significant changes. Patient is unresponsive and being followed closely by [facility]. Patient appears comfortable at this time. Will adjust medications as needed. 04/22/2023 Patient is seen this morning with multiple family members at bedside and remains to appear comfortable. Breathing has become more shallow and patient remains unresponsive. Patient is scheduled morphine as well as Ativan and scopolamine. Breath sounds are diminished although clear and is having more periods of apnea noted. Any questions or concerns were addressed with family at bedside. [facility] following. 04/23/2023 Patient is seen in follow-up this morning and is transitioning to end-of-life and is being started on morphine drip. [facility] following and will continue to follow and titrate morphine drip appropriately. Review Of Systems: Unable to assess as patient is nonverbal and unresponsive PHYSICAL EXAMINATION: GENERAL: The patient is asleep alert and oriented 0, unresponsive, thin built, elderly HEENT: Pupils are round and equally reacting to light. EOMI. no scleral icterus. No conjunctival pallor. Normocephalic, atraumatic. No pharyngeal erythema. No thyromegaly. Dry mucous membranes CARDIOVASCULAR: S1 and S2 muffled PULMONARY: diminished breath sounds bilaterally with no wheezing or rhonchi noted. Respirations 8 per minute ABDOMEN: soft. Nontender on exam. Thin, scaphoid. non-distended, hypoactive bowel sounds. No palpable organomegaly. MUSCULOSKELETAL: No joint swelling or deformity. EXTREMITIES: No cyanosis, clubbing, or pedal edema. NEUROLOGICAL: Unresponsive. Significant muscle wasting noted SKIN: No rashes. Assessment: Acute altered mental status secondary to acute left intraparenchymal cerebral hemorrhage with coma and conjugate deviation to the left Advanced dementia history Chronic obstructive pulmonary disease, not an exacerbation Hypertension Hyperlipidemia Muscle wasting No code Plan: Patient is being followed by [facility] GIP criteria maintained on IV push morphine as well as Ativan and appears to be transitioning to end-of-life and is being started on morphine drip. Hospice to follow daily and family is at bedside Continue comfort measures and adjust medications accordingly Patient is continued on scopolamine, and Ativan as needed Overall prognosis is extremely poor and guarded at this time. [facility] to follow and evaluate daily The impression and plan of care has been dictated by Candida Prince, nurse practitioner as directed. Dr. Cris ROACH I have performed a history and examination and MDM of this patient, discussed the same with the dictator, and agree with the dictator's assessment and plan as written ,documented as a scribe. Based on total visit time, I have performed more than 50% of the visit. Any additional findings or plans will be noted. Objective - Vital Signs Vital signs: Vital Signs Temp 103.7 F H 04/23/23 11:50 Pulse 116 H 04/23/23 11:50 Resp 16 04/23/23 11:50 BP 88/62 04/23/23 11:50 Pulse Ox 92 L 04/23/23 11:50 FiO2 Intake & Output 04/23/23 04/23/23 04/24/23 06:59 18:59 06:59 Intake Total 0 Output Total 0 50 Balance 0 -50 Intake: Oral 0 Output: Urine 0 50 Other: Voiding Method Indwelling Catheter Indwelling Catheter # Voids 0
== END 2023-04-23 23:50 | disposition expired | DRG 951 ==
LOC: 5NMEDONC 14:31
PROVIDERS: ADMIT Hospitalist; ATTEND Hospitalist
DX: Z51.5 Encounter for palliative care (principal); I61.8 Other nontraumatic intracerebral hemorrhage; R40.2A Nontraumatic coma due to underlying condition; T17.928A Food in respiratory tract, part unspecified causing other injury, initial encounter; F03.90 Unspecified dementia, unspecified severity, without behavioral disturbance, psychotic disturbance, mood disturbance, and anxiety; J44.9 Chronic obstructive pulmonary disease, unspecified; I10 Essential (primary) hypertension; E89.0 Postprocedural hypothyroidism; E78.5 Hyperlipidemia, unspecified; M62.50 Muscle wasting and atrophy, not elsewhere classified, unspecified site; H54.62 Unqualified visual loss, left eye, normal vision right eye; R19.7 Diarrhea, unspecified; H51.8 Other specified disorders of binocular movement; Z66 Do not resuscitate; Z79.890 Hormone replacement therapy; Z79.899 Other long term (current) drug therapy